=== PATIENT | female | born 1945 | race Caucasian/White ===

== ENCOUNTER 2017-01-19 01:29 | Inpatient (IN) ==
[2017-01-19] MEDS ORDERED: PROPOFOL 1,000 MG/100 ML BOTTLE IV ONE (01:39)
[2017-01-19] MEDS ORDERED: DOPamine 800 MG/250 ML PREMIX IV ONE (01:59)
[2017-01-19] MEDS: DOPamine 800 MG/250 ML PREMIX IV SCH (02:15)
--- NOTE | 2017-01-19 02:33 | Emergency Department Note ---
Zhang Dodd Mantricia, am scribing for, and in the presence of, Cass Dhaliwal DO 02:23. IIsra Debra, DO, personally performed the services described in this documentation, ascribed by Sun Holcomb in my presence, and it is both accurate and complete . Arrival - Arrival Chief Complaint: Shortness of Breath ED Nursing Triage Note: Pt arrives via [facility] from [place] for further eval of resp distress. Pt was seen initially for shortness of breath and was found to have elevated BNP. Pt was intubated at [place]. At time of triage pt is hypotensive. Mode of Arrival: Stretcher Limitations: No Limitations Source: EMS, RN Notes Reviewed - History of Present Illness HPI Narrative: Pt is a 71 y/o white female arriving to ED via [facility] as a transfer from [place] for further evaluation of respiratory distress that onset today. Pt is a resident of [facility] and presented to [place] [place] with a c/o SOB. Pt had an O2 sat of 74 and a blood sugar of greater than 40. Pt was diaphoretic while at [place] and was responsive to verbal stimuli. Dr. Rosado at ED was contacted for a transfer. While in route, pt received both Versed and Propathol. Pt was emergently intubated while at [place] and was treated for possible renal failure while there. [facility] reports that pt had a potassium of 6.9, which has now decreased and a BNP of 2000. At time of exam, pt is hypotensive, intubated, sedated, and unresponsive. No other complaints were reported to ED. Onset (ago): hour(s) Consistency: constant Severity: moderate Allergies/Adverse Reactions: Allergies Allergy/AdvReac Type Severity Reaction Status Date / Time codeine Allergy Mild Unknown/Unable Verified 12/25/15 18:11 to obtain sulfamethoxazole AdvReac Severe Unknown/Unable Verified 12/25/15 18:11 [From Bactrim] to obtain trimethoprim [From Bactrim] AdvReac Severe Unknown/Unable Verified 12/25/15 18: 11 to obtain Home Medications: Home Medications Medication Instructions Recorded Confirmed Type Alum/Mag/Simeth Max Str Liquid 30 ml PO Q8HR PRN 01/28/15 12/25/15 History [Mylanta Max Strength Liquid] Aspirin [Ecotrin] 81 mg PO DAILY 01/28/15 12/25/15 History Bisacodyl Supp [Dulcolax Supp] 10 mg RECTAL Q8H PRN 01/28/15 12/25/15 History Carbidopa/Levodopa 25-100 [Sinemet 1 tablet PO TID 01/28/15 12/25/15 History 25-100] Carvedilol [Coreg] 3.125 mg PO BID 01/28/15 12/25/15 History Ezetimibe/Simvastatin 10-80 1 tablet PO BEDTIME 01/28/15 12/25/15 History [Vytorin 10-80] Insulin Detemir [Levemir] 37 unit SUBCUT 1600 01/28/15 12/25/15 History Magnesium Hydroxide Susp [Milk of 60 ml PO DAILY PRN 01/28/15 12/25/15 History Magnesia] Memantine [Namenda] 10 mg PO BID 01/28/15 12/25/15 History Multivitamin [One Daily] 1 each PO DAILY 01/28/15 12/25/15 History Pantoprazole Tab [Protonix Tab] 40 mg PO DAILY 01/28/15 12/25/15 History Sennosides [Senna] 8.8 mg PO Q8H PRN 01/28/15 12/25/15 History Sertraline [Zoloft] 75 mg PO BEDTIME 01/28/15 12/25/15 History Clopidogrel [Plavix] 75 mg PO DAILY 11/13/15 12/25/15 History Multivitamin (Ocuvite) [Ocuvite] 1 tablet PO DAILY 11/13/15 12/25/15 History OLANZapine [Olanzapine] 5 mg PO DAILY 11/13/15 12/25/15 History Rivastigmine 9.5 mg/24Hr Patch 1 patch TRANSDERM DAILY 11/13/15 12/25/15 History [Exelon 9.5 mg/24 hr Patch] Acetaminophen 650 mg PO Q6H PRN 12/25/15 12/25/15 History Ferrous Sulfate 325 mg PO DAILY 12/25/15 12/25/15 History Linagliptin [Tradjenta] 5 mg PO DAILY 12/25/15 12/25/15 History Nystatin 1 applic TOP BID 12/25/15 12/25/15 History diphenhydrAMINE HCl 25 mg PO Q6H PRN 12/25/15 12/25/15 History [diphenhydrAMINE Tab] hydrOXYzine HCl [Hydroxyzine HCl] 50 mg PO Q6H PRN 12/25/15 12/25/15 History hydroCHLOROthiazide 12.5 mg PO DAILY 12/25/15 12/25/15 History [Hydrochlorothiazide] Simvastatin [Zocor] 80 mg PO BEDTIME tablet 12/26/15 Rx Levofloxacin Tab [Levaquin Tab] 500 mg PO Q24H #7 tablet 10/02/16 Rx amLODIPine [Norvasc] 5 mg PO DAILY #30 tablet 10/02/16 Rx Review of System - Review of System 12 point system: reviewed and no additional remarkable complaints except as stated - Review of System Constitutional: Present: other (elevated BNP; hypotensive). Absent: chills, diaphoresis, fever Respiratory: Present: other (SOB) Cardiovascular: Absent: chest pain Gastrointestinal: Absent: abdominal pain, nausea, vomiting, diarrhea Medical,Surgical,& Family Hx - Medical History Cardio: History of: Cardiac Dysrhythmia (afib), CAD (PCI to unknown site), Hypertension, [place] Neurology: History of: Cerebrovascular Accident (2005), Dementia, Parkinson's Disease (symptoms) No history of: Seizures Endocrine: History of: Diabetes Mellitus (IDDM), Dyslipidemia Rheumatology: History of;: Rheumatoid Arthritis Renal: History of: Renal Problems Gastrointestinal: History of: GERD Musculoskeletal: History of: Back/Neck Problems, Herniated Disk - Surgical History Cardiac Surgeries: Sugical HX of: Cardiac Catheterization (stents) HEENT Surgeries: Surgical HX of: Eye Surgery (right eye cataract sx) Abdominal Surgeries: Surgical HX of: Colonoscopy Patient denies: Abdominal Surgery Reproductive Surgeries: Surgical HX of;: Hysterectomy Orthopedic Surgeries: Surgical HX of;: Orthopedic Surgery (partial hip replacement post fall), Spinal Surgery (multiple back surgeries), Total Hip Replacement (left) - Family History Family History: Reports;: Family Cancer, Family Diabetes, Family Heart Disease, Family Hypertension Denies;: Family Anesthesia Reaction, Family Psychiatric Problems, Family Stroke - Social History Smoking Status: Never smoker Frequency of Alcohol Use: None Type of Drug Use: None Exam Vital Signs: Vital Signs Temperature 98.2 F 01/19/17 01:29 Pulse Rate 49 L 01/19/17 01:29 Respiratory Rate 19 01/19/17 01:40 Blood Pressure 102/60 01/19/17 01:29 O2 Sat by Pulse Oximetry 97 01/19/17 01:29 - General Exam limited due to: other (sedation;intubation) General appearance: obese - Head Head exam: Present: atraumatic, normocephalic - Eye Eye exam: Present: normal appearance, PERRL, EOMI - ENT ENT exam: Present: normal exam - Neck Neck exam: Present: normal inspection - Chest Chest inspection: Present: normal inspection - Respiratory Respiratory exam: Present: normal lung sounds bilaterally - Cardiovascular Cardiovascular exam: Present: regular rate, normal rhythm, normal heart sounds - Abdominal Exam Abdominal exam: Present: soft. Absent: distention, tenderness, guarding, rebound - Extremities Exam Extremities exam: Present: normal inspection - Back Exam Back exam: Present: normal inspection - Skin Skin exam: Present: warm, dry, intact, normal color Course Course Narrative: spoke with hospitalist who will admit pt to the ICU. repeat cardiac, chest xray and abgs ordered in ER Disposition Clinical Impression: Respiratory distress, Hyperkalemia Disposition: Still a Patient Condition: Guarded Time of Disposition: 02:33
[2017-01-19 02:36] LABS: CKMB % 4.2 %
[2017-01-19 02:37] LABS: Troponin I Only 0.605 NG/ML (0.00-0.045)
[2017-01-19] MEDS ORDERED: FUROSEMIDE 40 MG/4 ML VIAL IV STA (02:53)
[2017-01-19] MEDS ORDERED: FUROSEMIDE 100 MG/10 ML VIAL ONE (02:58)
[2017-01-19 03:25] LABS: ABG Base Excess -8.9 MMOL/L (-2.5-2.5); ABG HCO3 17.2 MMOL/L (20-26); ABG Oxygen Saturation 92.4 % (95-100); ABG PCO2 50.4 MM HG (35-48); ABG PO2 73.5 MM HG (80-95); ABG TCO2 17.8 MMOL/L (23-27); Allen Test Positive; Pt O2 Delivery Device Ventilator
[2017-01-19 03:27] LABS: ABG PH 7.198 (7.35-7.45)
--- NOTE | 2017-01-19 03:45 | Hospitalist History & Physical ---
Assessment and Plan (1) Acute respiratory failure Status: Acute Assessment and plan: Patient with acute respiratory failure now intubated and on ventilator. Bilateral infiltrate/pulmonary edema suspected. Patient was given diuretics. We will consult pulmonary. ABG is pending. Based on information infectious etiology not suspected but need to watch closely Current Visit: Yes (2) Hyperkalemia Status: Acute Assessment and plan: Hypokalemia noted probably due to chronic disease and uncontrolled diabetes mellitus with hypoglycemia. Repeat chemistries been ordered patient also received diuretics for suspected pulmonary edema will also likely assist with the hyperkalemia management Current Visit: Yes (3) Chronic kidney disease (CKD) Status: Chronic Assessment and plan: Patient has chronic kidney disease stage IV but renal function overall stable from what she had been June 2016 Current Visit: Yes (4) Type 2 diabetes mellitus Status: Chronic Assessment and plan: Will monitor blood sugar and provide as needed short-acting insulin hold on her long-acting hypoglycemic agent as she is n.p.o. at present repeat chemistry has been ordered Current Visit: No Qualifiers: Diabetes mellitus complication detail: with chronic kidney disease (5) Elevated troponin Status: Acute Assessment and plan: Noted elevated troponin not sure if it is due to hypotension with demand ischemia or primary cardiac event. Will do a repeat troponin and EKG cardiology consulted Current Visit: Yes (6) Hyperphosphatemia Status: Acute Assessment and plan: Hyperphosphatemia likely due to chronic renal disease patient is n.p.o. at present will need to consider repeating labs and the phosphate binders once she is on diet Current Visit: Yes (7) Dementia Status: Chronic Current Visit: No Qualifiers: Dementia type: Parkinson's disease History of Present Illness Chief complaint: Respiratory failure History of present illness: Ms. Wood is a 71 year old female who is intubated and unable to provide information no family member available history were obtained through the review of the record and talking to the ER physician. Patient is 71-year-old female with history of coronary artery disease dementia dyslipidemia hypertension diabetes mellitus. She is a resident of assisted and presented there with the respiratory distress was taken to the outside hospital there she was noted to have initially elevated blood pressure of 190/120 and then break was hypotensive with the recorded palpatory blood pressure of 40. She was intubated and started on dopamine infusion. I do not have any chest x-ray report or films available from outside hospital by the left bronchial showed WBC 10.4 hemoglobin 13.1 hematocrit 42.4 and platelets 194. Her blood glucose was more than 400 BUN 48 creatinine 2.2 chloride 105 bicarb 26 sodium 138 and potassium 6.2 phosphorus level was 6.2. Patient was transferred with a [facility] to [facility]. During that out she had lab work and had a potassium of 6.9 BNP 1999 she had received treatment for hyperkalemia but not sure about what treatment was received. Patient is now intubated and on ventilator. She was reported moving earlier in started on sedation. She is also on dopamine infusion. She was presented for admission and later had lab work revealed troponin 0.6. Chest x-ray revealed bilateral infiltrate. Home Medications Medication Instructions Recorded Confirmed Type Alum/Mag/Simeth Max Str Liquid 30 ml PO Q8HR PRN 01/28/15 12/25/15 History [Mylanta Max Strength Liquid] Aspirin [Ecotrin] 81 mg PO DAILY 01/28/15 12/25/15 History Bisacodyl Supp [Dulcolax Supp] 10 mg RECTAL Q8H PRN 01/28/15 12/25/15 History Carbidopa/Levodopa 25-100 [Sinemet 1 tablet PO TID 01/28/15 12/25/15 History 25-100] Carvedilol [Coreg] 3.125 mg PO BID 01/28/15 12/25/15 History Ezetimibe/Simvastatin 10-80 1 tablet PO BEDTIME 01/28/15 12/25/15 History [Vytorin 10-80] Insulin Detemir [Levemir] 37 unit SUBCUT 1600 01/28/15 12/25/15 History Magnesium Hydroxide Susp [Milk of 60 ml PO DAILY PRN 01/28/15 12/25/15 History Magnesia] Memantine [Namenda] 10 mg PO BID 01/28/15 12/25/15 History Multivitamin [One Daily] 1 each PO DAILY 01/28/15 12/25/15 History Pantoprazole Tab [Protonix Tab] 40 mg PO DAILY 01/28/15 12/25/15 History Sennosides [Senna] 8.8 mg PO Q8H PRN 01/28/15 12/25/15 History Sertraline [Zoloft] 75 mg PO BEDTIME 01/28/15 12/25/15 History Clopidogrel [Plavix] 75 mg PO DAILY 11/13/15 12/25/15 History Multivitamin (Ocuvite) [Ocuvite] 1 tablet PO DAILY 11/13/15 12/25/15 History OLANZapine [Olanzapine] 5 mg PO DAILY 11/13/15 12/25/15 History Rivastigmine 9.5 mg/24Hr Patch 1 patch TRANSDERM DAILY 11/13/15 12/25/15 History [Exelon 9.5 mg/24 hr Patch] Acetaminophen 650 mg PO Q6H PRN 12/25/15 12/25/15 History Ferrous Sulfate 325 mg PO DAILY 12/25/15 12/25/15 History Linagliptin [Tradjenta] 5 mg PO DAILY 12/25/15 12/25/15 History Nystatin 1 applic TOP BID 12/25/15 12/25/15 History diphenhydrAMINE HCl 25 mg PO Q6H PRN 12/25/15 12/25/15 History [diphenhydrAMINE Tab] hydrOXYzine HCl [Hydroxyzine HCl] 50 mg PO Q6H PRN 12/25/15 12/25/15 History hydroCHLOROthiazide 12.5 mg PO DAILY 12/25/15 12/25/15 History [Hydrochlorothiazide] Simvastatin [Zocor] 80 mg PO BEDTIME tablet 12/26/15 Rx Levofloxacin Tab [Levaquin Tab] 500 mg PO Q24H #7 tablet 10/02/16 Rx amLODIPine [Norvasc] 5 mg PO DAILY #30 tablet 10/02/16 Rx Allergies Allergy/AdvReac Type Severity Reaction Status Date / Time codeine Allergy Mild Unknown/Unable Verified 12/25/15 18:11 to obtain sulfamethoxazole AdvReac Severe Unknown/Unable Verified 12/25/15 18:11 [From Bactrim] to obtain trimethoprim [From Bactrim] AdvReac Severe Unknown/Unable Verified 12/25/15 18: 11 to obtain Medical,Surgical,& Family Hx - Medical History Cardio: History of: Cardiac Dysrhythmia (afib), CAD (PCI to unknown site), Hypertension, [place] Neurology: History of: Cerebrovascular Accident (2006), Dementia, Parkinson's Disease (symptoms) No history of: Seizures Endocrine: History of: Diabetes Mellitus (IDDM), Dyslipidemia Rheumatology: History of;: Rheumatoid Arthritis Renal: History of: Renal Problems Gastrointestinal: History of: GERD Musculoskeletal: History of: Back/Neck Problems, Herniated Disk - Surgical History Cardiac Surgeries: Sugical HX of: Cardiac Catheterization (stents) HEENT Surgeries: Surgical HX of: Eye Surgery (right eye cataract sx) Abdominal Surgeries: Surgical HX of: Colonoscopy Patient denies: Abdominal Surgery Reproductive Surgeries: Surgical HX of;: Hysterectomy Orthopedic Surgeries: Surgical HX of;: Orthopedic Surgery (partial hip replacement post fall), Spinal Surgery (multiple back surgeries), Total Hip Replacement (left) - Family History Family History: Reports;: Family Cancer, Family Diabetes, Family Heart Disease, Family Hypertension Denies;: Family Anesthesia Reaction, Family Psychiatric Problems, Family Stroke - Social History Smoking Status: Unknown if ever smoked Frequency of Alcohol Use: Unknown Type of Drug Use: Unknown ROS unobtainable: due to endotracheal tube Exam - Constitutional Vitals: Period Temp Pulse Resp BP Sys/Romero Pulse Ox Last 24 Hr 98.2 F-98.2 F 49-49 19-20 102-102/60-60 97 General appearance: other (Intubated on mechanical ventilator) - Head Head exam: Present: normal inspection, normocephalic, atraumatic - Eye Pupils: Present: KAVITHA - ENT ENT exam: Present: other (Orally intubated) - Respiratory Respiratory exam: Present: other (Bilateral coarse sound anteriorly and laterally no rhonchi) - Cardiovascular Cardiovascular exam: Present: regular rate and rhythm. Absent: tachycardia - GI/Abdominal GI/Abdominal exam: Present: normal bowel sounds, soft. Absent: distended - Extremities Exam Extremities exam: Absent: edema Results - Labs Lab Results: I have reviewed the past 24 hour labs
[2017-01-19] MEDS: PROPOFOL 1,000 MG/100 ML BOTTLE IV SCH ×5 (03:47→23:09)
[2017-01-19] MEDS ORDERED: GLUCAGON 1 MG VIAL IM PRN (03:54)
[2017-01-19] MEDS ORDERED: DEXTROSE 50% 25 GM/50 ML SYRINGE IV PRN (03:54)
[2017-01-19 05:22] LABS: Hematocrit 40.3 VOL% (35.7-47.0); Hemoglobin 12.4 GM/DL (12.0-16.0); Immature Granulocytes % 0.5 %; Immature Granulocytes Absolute 0.06 #; Lymphocytes # 0.8 10*3/uL (1.4-4.0); Lymphocytes % 6.8 % (21.3-54.2); Mean Corpuscular HGB Conc 30.8 GM/DL (32-36); Mean Corpuscular Hemoglobin 28 PG (27-34); Mean Corpuscular Volume 92.4 FL (87-102); Monocytes # 0.9 10*3/uL (0.11-0.8); Monocytes % 7.2 % (1.7-12.7); Neutrophils # 10.1 10*3/uL (1.4-7.4); Neutrophils % 85.5 % (38.7-73.9); Platelet Count 191 T/CUMM (130-400); Red Blood Count 4.36 MC/CUMM (3.8-5.5); Red Cell Distribution Width 14.4 % (9.3-17.3); White Blood Count 11.8 T/CUMM (4-12)
[2017-01-19 05:27] LABS: ABG Base Excess -8.7 MMOL/L (-2.5-2.5); ABG HCO3 17.9 MMOL/L (20-26); ABG Oxygen Saturation 98.7 % (95-100); ABG PCO2 40.9 MM HG (35-48); ABG PH 7.258 (7.35-7.45); ABG PO2 218.6 MM HG (80-95); ABG TCO2 19.1 MMOL/L (23-27); Allen Test Positive; Pt O2 Delivery Device Ventilator
[2017-01-19 05:50] LABS: Apearance,Urine CLEAR (Clear); Bilirubin,Urine Negative (Negative); Blood, Urine Small mg/dL (Negative); Glucose,Urine (UA) 150 mg/dL (Negative); Ketones,Urine Negative (Negative); Mucus,Urine Occasional /LPF (Occasional); Nitrite,Urine Negative (Negative); Protein,Urine 100 MG/DL; RBC,Urine <1 /HPF (0-4); Urine Color Straw (Yellow); Urine Specific Gravity 1.006 (1.001-1.035); Urine Urobilinogen < 2.0 EU/DL (0.2-1.0); WBC,Urine 1 /HPF (0-6)
[2017-01-19 05:53] LABS: Albumin 2.7 G/DL (3.4-5.0); Bilirubin,Total 0.6 MG/DL (0.2-1.0); Calcium 8.6 MG/DL (8.5-10.1); Total Protein 6.7 G/DL (6.4-8.3)
[2017-01-19] MEDS: INSULIN LISPRO 100 UNIT/ML SUBCUT SCH ×4 (06:13→23:42)
--- NOTE | 2017-01-19 06:14 | Cardiology Consult Note ---
Assessment and Plan (1) Coronary artery disease Status: Chronic Assessment and plan: Prior coronary artery disease with stenting of the RCA and circumflex artery but this is been over 10 years ago. Patient has no findings at this time of acute coronary syndrome. Current Visit: Yes (2) Hyperkalemia Status: Acute Assessment and plan: This is elevated and the etiology unclear. Current Visit: No (3) Acute respiratory failure Status: Acute Assessment and plan: Etiology of this is unclear but the patient required ventilator support. Current Visit: Yes (4) Chronic kidney disease (CKD) Status: Chronic Assessment and plan: This been a chronic issue. Hopefully she will not have an acute issue top of this. Current Visit: Yes (5) Elevated troponin Status: Acute Assessment and plan: Her troponin is trivially increased especially in light of her illness which can account for this. Current Visit: Yes (6) Bradycardia Status: Acute Assessment and plan: This may be secondary to metabolic issues. This just developed. Current Visit: Yes (7) Acidosis Status: Acute Assessment and plan: This is acute LA be related to underlying infection or other. Current Visit: Yes (8) Abnormal chest x-ray Status: Acute Assessment and plan: This may represent some fluid overload versus infection versus other. She is in respiratory failure. We have ordered chest x-ray. Current Visit: Yes History of Present Illness - Data of Consult Patient: new to practice Consult date: 01/19/17 Requesting Physician: Edouard Moore - Consult Narrative Reason for consult: Elevated BNP, bradycardia History of present illness: 71-year-old female who we are asked to see consultation. The patient is intubated and somewhat sedated but does respond some to verbal to verbal stimuli. There is no family available and only records we have is that of here and at the outside hospital where she was transferred from. In brief this patient apparently presented to the [facility] short of breath and was evaluated and was severely hypertensive but then became hypotensive. She required intubation and was transferred here. She had elevated potassium outside and BMP 1999. She was treated for hyperkalemia. Here her chest x-ray continues to show bilateral infiltrates question heart failure. The patient's CBC is noted and looks stable. She was acidotic on admission and remains somewhat acidotic but oxygenating better. She still has elevated potassium and her creatinine is 2.3 and BUN is 48 and remains acidotic with decreased bicarb. Her initial troponin was 0.605. An ECG from outside reveals sinus rhythm nonspecific ST-T abnormalities. Here this morning her rhythm appears to be junctional. Her heart rates in the 40s. We await her other lab work. Echocardiogram is been ordered. I do not see in the chart where she is ever seen a power superintendent but there is mention on some previous notes by hospitalist that she has had coronary disease and has had some episodes of atrial fibrillation. Patient previous seen Dr. James Kaufman and had prior stenting of the RCA and circumflex arteries. Her last heart catheterization was 2007 with widely patent stents in mild to moderate coronary disease present. In recent hospitalization she was not seen by power superintendent. We have ordered echocardiogram which will follow up on. Will monitor heart rhythm. Will leave the primary service to evaluate and treat her metabolic issues. CC: Edouard Moore MD - Home Medications and Allergies Home Medications: Home Medications Medication Instructions Recorded Confirmed Type Alum/Mag/Simeth Max Str Liquid 30 ml PO Q8HR PRN 01/28/15 12/25/15 History [Mylanta Max Strength Liquid] Aspirin [Ecotrin] 81 mg PO DAILY 01/28/15 12/25/15 History Bisacodyl Supp [Dulcolax Supp] 10 mg RECTAL Q8H PRN 01/28/15 12/25/15 History Carbidopa/Levodopa 25-100 [Sinemet 1 tablet PO TID 01/28/15 12/25/15 History 25-100] Carvedilol [Coreg] 3.125 mg PO BID 01/28/15 12/25/15 History Ezetimibe/Simvastatin 10-80 1 tablet PO BEDTIME 01/28/15 12/25/15 History [Vytorin 10-80] Insulin Detemir [Levemir] 37 unit SUBCUT 1600 01/28/15 12/25/15 History Magnesium Hydroxide Susp [Milk of 60 ml PO DAILY PRN 01/28/15 12/25/15 History Magnesia] Memantine [Namenda] 10 mg PO BID 01/28/15 12/25/15 History Multivitamin [One Daily] 1 each PO DAILY 01/28/15 12/25/15 History Pantoprazole Tab [Protonix Tab] 40 mg PO DAILY 01/28/15 12/25/15 History Sennosides [Senna] 8.8 mg PO Q8H PRN 01/28/15 12/25/15 History Sertraline [Zoloft] 75 mg PO BEDTIME 01/28/15 12/25/15 History Clopidogrel [Plavix] 75 mg PO DAILY 11/13/15 12/25/15 History Multivitamin (Ocuvite) [Ocuvite] 1 tablet PO DAILY 11/13/15 12/25/15 History OLANZapine [Olanzapine] 5 mg PO DAILY 11/13/15 12/25/15 History Rivastigmine 9.5 mg/24Hr Patch 1 patch TRANSDERM DAILY 11/13/15 12/25/15 History [Exelon 9.5 mg/24 hr Patch] Acetaminophen 650 mg PO Q6H PRN 12/25/15 12/25/15 History Ferrous Sulfate 325 mg PO DAILY 12/25/15 12/25/15 History Linagliptin [Tradjenta] 5 mg PO DAILY 12/25/15 12/25/15 History Nystatin 1 applic TOP BID 12/25/15 12/25/15 History diphenhydrAMINE HCl 25 mg PO Q6H PRN 12/25/15 12/25/15 History [diphenhydrAMINE Tab] hydrOXYzine HCl [Hydroxyzine HCl] 50 mg PO Q6H PRN 12/25/15 12/25/15 History hydroCHLOROthiazide 12.5 mg PO DAILY 12/25/15 12/25/15 History [Hydrochlorothiazide] Simvastatin [Zocor] 80 mg PO BEDTIME tablet 12/26/15 Rx Levofloxacin Tab [Levaquin Tab] 500 mg PO Q24H #7 tablet 10/02/16 Rx amLODIPine [Norvasc] 5 mg PO DAILY #30 tablet 10/02/16 Rx Allergies/Adverse Reactions: Allergies Allergy/AdvReac Type Severity Reaction Status Date / Time codeine Allergy Mild Unknown/Unable Verified 12/25/15 18:11 to obtain sulfamethoxazole AdvReac Severe Unknown/Unable Verified 12/25/15 18:11 [From Bactrim] to obtain trimethoprim [From Bactrim] AdvReac Severe Unknown/Unable Verified 12/25/15 18: 11 to obtain ROS unobtainable: due to endotracheal tube Medical,Surgical,& Family Hx - Medical History Cardio: History of: Cardiac Dysrhythmia (afib), CAD (PCI to unknown site), Hypertension, [place] Neurology: History of: Cerebrovascular Accident (2006), Dementia, Parkinson's Disease (symptoms) No history of: Seizures Endocrine: History of: Diabetes Mellitus (IDDM), Dyslipidemia Rheumatology: History of;: Rheumatoid Arthritis Renal: History of: Renal Problems Gastrointestinal: History of: GERD Musculoskeletal: History of: Back/Neck Problems, Herniated Disk - Surgical History Cardiac Surgeries: Sugical HX of: Cardiac Catheterization (stents) HEENT Surgeries: Surgical HX of: Eye Surgery (right eye cataract sx) Abdominal Surgeries: Surgical HX of: Colonoscopy Patient denies: Abdominal Surgery Reproductive Surgeries: Surgical HX of;: Hysterectomy Orthopedic Surgeries: Surgical HX of;: Orthopedic Surgery (partial hip replacement post fall), Spinal Surgery (multiple back surgeries), Total Hip Replacement (left) - Family History Family History: Reports;: Family Cancer, Family Diabetes, Family Heart Disease, Family Hypertension Denies;: Family Anesthesia Reaction, Family Psychiatric Problems, Family Stroke - Social History Smoking Status: Unknown if ever smoked Frequency of Alcohol Use: Unknown Type of Drug Use: Unknown Physical Examination Vital Signs Temp Pulse Resp BP Pulse Ox 98.2 F 49 L 20 102/60 97 01/19/17 01:29 01/19/17 01:29 01/19/17 01:29 01/19/17 01:29 01/19/17 01:29 Exam: General appearance: Overweight elderly female intubated on ventilator. She is somewhat sedate. She will open her eyes and respond slightly to verbal stimuli. HEENT: Atraumatic but orally intubated. Neck: Supple trachea is in midline. No gross bruit heard and no gross JVD. Lungs: Quiet anteriorly on ventilator. Breath sounds bilaterally. Cardiovascular: Distant heart sounds regular bradycardic without gross murmur. Chest wall: No gross deformities. Abdomen: Soft bowel sounds present. Nondistended. Extremities: No edema. No cyanosis or edema. Neurologic: Patient is sedate but does respond some to verbal stimuli. Psychiatric: Unable to evaluate. Dermatologic: No gross rashes. Result/EKG - Labs CBC & BMP: 01/19/17 04:37 01/19/17 04:37 Lab Results: I have reviewed the past 24 hour labs Labs: Laboratory Results - last 24 hr 01/19/17 01/19/17 01/19/17 01:55 03:18 04:37 WBC 11.8 RBC 4.36 Hgb 12.4 Hct 40.3 MCV 92.4 MCH 28 MCHC 30.8 L RDW 14.4 Plt Count 191 MPV 11.0 Neut % (Auto) 85.5 H Lymph % (Auto) 6.8 L [place] % (Auto) 7.2 Eos % (Auto) 0.0 Baso % (Auto) 0.0 Neut # (Auto) 10.1 H Lymph # (Auto) 0.8 L [place] # (Auto) 0.9 H Eos # (Auto) 0.0 Baso # (Auto) 0.0 Immature Gran % 0.5 Nucleated RBC % 0.0 Immature Gran # 0.06 Nucleated RBCs # 0.00 Immature Plt Fraction 0.0 ABG pH 7.198 L* ABG pCO2 50.4 H ABG pO2 73.5 L ABG HCO3 17.2 L ABG Total CO2 17.8 L ABG O2 Saturation 92.4 L ABG Base Excess -8.9 L FiO2 80.00 Sodium Potassium Chloride Carbon Dioxide Anion Gap BUN Creatinine GFR Calculation BUN/Creatinine Ratio Glucose POC Glucose Calculated Osmolality Calcium Total Bilirubin AST ALT Alkaline Phosphatase Total Creatine Kinase 175 CK-MB (CK-2) 7.3 H CK and CKMB Interp 4.2 Troponin I 0.605 H Total Protein Albumin Globulin Albumin/Globulin Ratio Urine Color Urine Appearance Urine pH Ur Specific [place] Urine Protein Urine Glucose (UA) Urine Ketones Urine Blood Urine Nitrate Urine Bilirubin Urine Urobilinogen Urine Leukocytes Urine RBC Urine WBC Urine Mucus Ur Culture Indicated? 01/19/17 01/19/17 01/19/17 04:37 05:10 05:10 WBC RBC Hgb Hct MCV MCH MCHC RDW Plt Count MPV Neut % (Auto) Lymph % (Auto) [place] % (Auto) Eos % (Auto) Baso % (Auto) Neut # (Auto) Lymph # (Auto) [place] # (Auto) Eos # (Auto) Baso # (Auto) Immature Gran % Nucleated RBC % Immature Gran # Nucleated RBCs # Immature Plt Fraction ABG pH 7.258 L ABG pCO2 40.9 ABG pO2 218.6 H ABG HCO3 17.9 L ABG Total CO2 19.1 L ABG O2 Saturation 98.7 ABG Base Excess -8.7 L FiO2 80.00 Sodium 143 Potassium 6.0 H* Chloride 114 H Carbon Dioxide 18 L Anion Gap 17.0 H BUN 48 H Creatinine 2.30 H GFR Calculation 24 BUN/Creatinine Ratio 20.00 Glucose 335 H POC Glucose Calculated Osmolality 310.0 H Calcium 8.6 Total Bilirubin 0.60 AST 28 ALT 16 Alkaline Phosphatase 282 H Total Creatine Kinase CK-MB (CK-2) CK and CKMB Interp Troponin I Total Protein 6.7 Albumin 2.7 L Globulin 4.0 H Albumin/Globulin Ratio 0.6 L Urine Color Straw Urine Appearance Clear Urine pH 5.0 Ur Specific [place] 1.006 Urine Protein 100 Urine Glucose (UA) 150 Urine Ketones Negative Urine Blood Small Urine Nitrate Negative Urine Bilirubin Negative Urine Urobilinogen < 2.0 H Urine Leukocytes Negative Urine RBC <1 Urine WBC 1 Urine Mucus Occasional Ur Culture Indicated? Not indicated 01/19/17 05:12 WBC RBC Hgb Hct MCV MCH MCHC RDW Plt Count MPV Neut % (Auto) Lymph % (Auto) [place] % (Auto) Eos % (Auto) Baso % (Auto) Neut # (Auto) Lymph # (Auto) [place] # (Auto) Eos # (Auto) Baso # (Auto) Immature Gran % Nucleated RBC % Immature Gran # Nucleated RBCs # Immature Plt Fraction ABG pH ABG pCO2 ABG pO2 ABG HCO3 ABG Total CO2 ABG O2 Saturation ABG Base Excess FiO2 Sodium Potassium Chloride Carbon Dioxide Anion Gap BUN Creatinine GFR Calculation BUN/Creatinine Ratio Glucose POC Glucose 344 H Calculated Osmolality Calcium Total Bilirubin AST ALT Alkaline Phosphatase Total Creatine Kinase CK-MB (CK-2) CK and CKMB Interp Troponin I Total Protein Albumin Globulin Albumin/Globulin Ratio Urine Color Urine Appearance Urine pH Ur Specific [place] Urine Protein Urine Glucose (UA) Urine Ketones Urine Blood Urine Nitrate Urine Bilirubin Urine Urobilinogen Urine Leukocytes Urine RBC Urine WBC Urine Mucus Ur Culture Indicated? - Impressions Impressions: ECGs outside reveals sinus rhythm. ECG here now with junctional rhythm but rhythm was previously sinus. Nonspecific ST abnormalities. No acute ischemic changes though.
[2017-01-19 06:45] LABS: CKMB % 4.4 %
[2017-01-19 06:47] LABS: Troponin I Only 0.684 NG/ML (0.00-0.045)
--- NOTE | 2017-01-19 07:44 | Pulmonology Consult Note ---
History of Present Illness Chief complaint: Ventilator. CHF. Parkinson's. Dementia. Old CVA History of present illness: Ms. Wood is a 71 year old white female care home patient whom I been asked see in pulmonary consultation for evaluation and treatment. This patient is a care home patient who was transferred here intubated for acute respiratory failure. Her chest x-ray shows acute congestive heart failure she has a history of heart disease, dementia, hyperlipidemia, high blood pressure and diabetes mellitus. Her old records referred to a previous CVA that involved her eyes. The patient is arousable but sedated therefore her review of systems is negative. Allergies. Codeine. Bactrim. Home medicines. See below Past history. Heart disease. High blood pressure. Hyperlipidemia. Diabetes mellitus. History of CVAs that at least involved her eyes. Dementia. Parkinson's disease. Atrial fibrillation. Possible past history of rheumatoid arthritis. History of gastroesophageal reflux disease and history of degenerative joint disease including herniated disc and chronic neck and back pain. Patient's had previous cardiac catheterization and placement of stents. She has had a hysterectomy. She has previously had a partial right hip replacement. And she has had a total hip replacement. She has had a number of back surgeries. Social history. Lives in a care home. Family history. Unknown type of cancer. Diabetes. Heart disease. High blood pressure. Anesthesia reaction. Strokes. Psychiatric problems. Chest x-ray. 01/19/2017. My interpretation. Mild cardiomegaly. Plump pulmonary arteries. No hilar adenopathy mediastinum is normal endotracheal tube is in good position bilateral fluffy mainly alveolar infiltrates and small bilateral pleural effusions consistent with congestive heart failure. This is a semierect portable film Lab. Creatinine is 2.3 with a BUN of 48. Sodium is 143. Potassium 6.0. Alkaline phosphatase is elevated 282 with normal transaminases and bilirubin. Troponin is 0.684. Total protein albumin and globulin 6.7, 2.7 and 4 respectively. White count 11,800 with 85.566.8 lymphs and 7.2 monocytes H&H is 12.4/40.3. Platelets are 191,000. Outside labs showed a BNP of approximately 2000 I am told. ABGs. FiO2 80%. Mechanical ventilation. PH 7.25, PCO2 40.9, PO2 218.6 and bicarb 17.9. Physical exam. Vital signs see below. Afebrile. Face. Symmetrical. No edema of the lips or tongue. Neck. Symmetrical. No mass. No meningismus. Thyroid was not palpated Lymphatics. No submandibular cervical supraclavicular or epitrochlear adenopathy Chest. Symmetrical. Fairly clear. Bibasilar rales Heart. Slightly lateral PMI I cannot hear murmur Abdomen. Nondistended. Scattered hypoactive bowel sounds Lower extremities. Mild overlying skin changes of chronic venous stasis. Trace of pedal pretibial edema. Cannot evaluate for pain. Degenerative joint disease present Neurologic. Impossible and rectal deferred Breast deferred The remainder the exam is negative. Impression. 1. Acute respiratory failure probably secondary to congestive heart failure but watch for other causes. Requiring intubation mechanical ventilation. Note the patient has a #6 tube 2. Past history of heart disease requiring stents 3. Chronic renal failure. Poor response to IV push Lasix. Mild hyperkalemia. 4 abnormal alkaline phosphate. Etiology undetermined 5. Parkinson's disease 6. Possible history of rheumatoid arthritis 7. Diabetes mellitus 8. High blood pressure 9. Hyperlipidemia 10. Gastroesophageal reflux disease 11. History of bilateral hip surgery. 12. See past history Plan. 1. Adjustments made to mechanical ventilation. Begin weaning protocol and physical therapy protocol 2. Output is poor will ask renal to see the patient 3. Doppler venograms of the lower extremities 4. Daily chest x-ray ABGs and lab been ordered 5. See orders. 6. Deep venous thrombophlebitis prevention protocol 7. Proton pump inhibitor protocol per Home Medications Medication Instructions Recorded Confirmed Type Alum/Mag/Simeth Max Str Liquid 30 ml PO Q8HR PRN 01/28/15 12/25/15 History [Mylanta Max Strength Liquid] Aspirin [Ecotrin] 81 mg PO DAILY 01/28/15 12/25/15 History Bisacodyl Supp [Dulcolax Supp] 10 mg RECTAL Q8H PRN 01/28/15 12/25/15 History Carbidopa/Levodopa 25-100 [Sinemet 1 tablet PO TID 01/28/15 12/25/15 History 25-100] Carvedilol [Coreg] 3.125 mg PO BID 01/28/15 12/25/15 History Ezetimibe/Simvastatin 10-80 1 tablet PO BEDTIME 01/28/15 12/25/15 History [Vytorin 10-80] Insulin Detemir [Levemir] 37 unit SUBCUT 1600 01/28/15 12/25/15 History Magnesium Hydroxide Susp [Milk of 60 ml PO DAILY PRN 01/28/15 12/25/15 History Magnesia] Memantine [Namenda] 10 mg PO BID 01/28/15 12/25/15 History Multivitamin [One Daily] 1 each PO DAILY 01/28/15 12/25/15 History Pantoprazole Tab [Protonix Tab] 40 mg PO DAILY 01/28/15 12/25/15 History Sennosides [Senna] 8.8 mg PO Q8H PRN 01/28/15 12/25/15 History Sertraline [Zoloft] 75 mg PO BEDTIME 01/28/15 12/25/15 History Clopidogrel [Plavix] 75 mg PO DAILY 11/13/15 12/25/15 History Multivitamin (Ocuvite) [Ocuvite] 1 tablet PO DAILY 11/13/15 12/25/15 History OLANZapine [Olanzapine] 5 mg PO DAILY 11/13/15 12/25/15 History Rivastigmine 9.5 mg/24Hr Patch 1 patch TRANSDERM DAILY 11/13/15 12/25/15 History [Exelon 9.5 mg/24 hr Patch] Acetaminophen 650 mg PO Q6H PRN 12/25/15 12/25/15 History Ferrous Sulfate 325 mg PO DAILY 12/25/15 12/25/15 History Linagliptin [Tradjenta] 5 mg PO DAILY 12/25/15 12/25/15 History Nystatin 1 applic TOP BID 12/25/15 12/25/15 History diphenhydrAMINE HCl 25 mg PO Q6H PRN 12/25/15 12/25/15 History [diphenhydrAMINE Tab] hydrOXYzine HCl [Hydroxyzine HCl] 50 mg PO Q6H PRN 12/25/15 12/25/15 History hydroCHLOROthiazide 12.5 mg PO DAILY 12/25/15 12/25/15 History [Hydrochlorothiazide] Simvastatin [Zocor] 80 mg PO BEDTIME tablet 12/26/15 Rx Levofloxacin Tab [Levaquin Tab] 500 mg PO Q24H #7 tablet 10/02/16 Rx amLODIPine [Norvasc] 5 mg PO DAILY #30 tablet 10/02/16 Rx Allergies Allergy/AdvReac Type Severity Reaction Status Date / Time codeine Allergy Mild Unknown/Unable Verified 12/25/15 18:11 to obtain sulfamethoxazole AdvReac Severe Unknown/Unable Verified 12/25/15 18:11 [From Bactrim] to obtain trimethoprim [From Bactrim] AdvReac Severe Unknown/Unable Verified 12/25/15 18: 11 to obtain Exam (Pulmonay) H&P - Constitutional Vitals: Period Temp Pulse Resp BP Sys/Romero Pulse Ox Last 24 Hr 97.4 F-98.2 F 44-74 18-20 102-175/60-75 97-100 Medical,Surgical,& Family Hx - Medical History Cardio: History of: Cardiac Dysrhythmia (afib), CAD (PCI to unknown site), Hypertension, [place] Neurology: History of: Cerebrovascular Accident (2005), Dementia, Parkinson's Disease (symptoms) No history of: Seizures Endocrine: History of: Diabetes Mellitus (IDDM), Dyslipidemia Rheumatology: History of;: Rheumatoid Arthritis Renal: History of: Renal Problems Gastrointestinal: History of: GERD Musculoskeletal: History of: Back/Neck Problems, Herniated Disk - Surgical History Cardiac Surgeries: Sugical HX of: Cardiac Catheterization (stents) HEENT Surgeries: Surgical HX of: Eye Surgery (right eye cataract sx) Abdominal Surgeries: Surgical HX of: Colonoscopy Patient denies: Abdominal Surgery Reproductive Surgeries: Surgical HX of;: Hysterectomy Orthopedic Surgeries: Surgical HX of;: Orthopedic Surgery (partial hip replacement post fall), Spinal Surgery (multiple back surgeries), Total Hip Replacement (left) - Family History Family History: Reports;: Family Cancer, Family Diabetes, Family Heart Disease, Family Hypertension Denies;: Family Anesthesia Reaction, Family Psychiatric Problems, Family Stroke - Social History Smoking Status: Unknown if ever smoked Frequency of Alcohol Use: Unknown Type of Drug Use: Unknown Results - Labs CBC & BMP: 01/19/17 04:37 01/19/17 04:37
[2017-01-19] MEDS ORDERED: CALCIUM GLUCONATE 2,000 MG in SODIUM CHLORIDE 0.9% 100 ML IV PRN (08:29)
--- NOTE | 2017-01-19 08:31 | Nephrology Consult Note ---
History of Present Illness Chief complaint: Acute renal failure History of present illness: History is from the chart as patient is intubated. Ms. Wood is a 71 year old female patient with history of hypertension, diabetes, dementia, Parkinson's disease and chronic kidney disease was transferred from outside facility due to respiratory distress. Patient has evidence of volume overload by x-ray. She is now entirely intubated. Nephrology is consulted for acute on chronic renal failure. Moreover patient has evidence of elevated potassium. She has received 1 dose of Lasix. Hemodynamics have been stable. She is voiding at this time. We will continue with scheduled Lasix. Will also repeat potassium this afternoon. Home Medications Medication Instructions Recorded Confirmed Type Alum/Mag/Simeth Max Str Liquid 30 ml PO Q8HR PRN 01/28/15 12/25/15 History [Mylanta Max Strength Liquid] Aspirin [Ecotrin] 81 mg PO DAILY 01/28/15 12/25/15 History Bisacodyl Supp [Dulcolax Supp] 10 mg RECTAL Q8H PRN 01/28/15 12/25/15 History Carbidopa/Levodopa 25-100 [Sinemet 1 tablet PO TID 01/28/15 12/25/15 History 25-100] Carvedilol [Coreg] 3.125 mg PO BID 01/28/15 12/25/15 History Ezetimibe/Simvastatin 10-80 1 tablet PO BEDTIME 01/28/15 12/25/15 History [Vytorin 10-80] Insulin Detemir [Levemir] 37 unit SUBCUT 1600 01/28/15 12/25/15 History Magnesium Hydroxide Susp [Milk of 60 ml PO DAILY PRN 01/28/15 12/25/15 History Magnesia] Memantine [Namenda] 10 mg PO BID 01/28/15 12/25/15 History Multivitamin [One Daily] 1 each PO DAILY 01/28/15 12/25/15 History Pantoprazole Tab [Protonix Tab] 40 mg PO DAILY 01/28/15 12/25/15 History Sennosides [Senna] 8.8 mg PO Q8H PRN 01/28/15 12/25/15 History Sertraline [Zoloft] 75 mg PO BEDTIME 01/28/15 12/25/15 History Clopidogrel [Plavix] 75 mg PO DAILY 11/13/15 12/25/15 History Multivitamin (Ocuvite) [Ocuvite] 1 tablet PO DAILY 11/13/15 12/25/15 History OLANZapine [Olanzapine] 5 mg PO DAILY 11/13/15 12/25/15 History Rivastigmine 9.5 mg/24Hr Patch 1 patch TRANSDERM DAILY 11/13/15 12/25/15 History [Exelon 9.5 mg/24 hr Patch] Acetaminophen 650 mg PO Q6H PRN 12/25/15 12/25/15 History Ferrous Sulfate 325 mg PO DAILY 12/25/15 12/25/15 History Linagliptin [Tradjenta] 5 mg PO DAILY 12/25/15 12/25/15 History Nystatin 1 applic TOP BID 12/25/15 12/25/15 History diphenhydrAMINE HCl 25 mg PO Q6H PRN 12/25/15 12/25/15 History [diphenhydrAMINE Tab] hydrOXYzine HCl [Hydroxyzine HCl] 50 mg PO Q6H PRN 12/25/15 12/25/15 History hydroCHLOROthiazide 12.5 mg PO DAILY 12/25/15 12/25/15 History [Hydrochlorothiazide] Simvastatin [Zocor] 80 mg PO BEDTIME tablet 12/26/15 Rx Levofloxacin Tab [Levaquin Tab] 500 mg PO Q24H #7 tablet 10/02/16 Rx amLODIPine [Norvasc] 5 mg PO DAILY #30 tablet 10/02/16 Rx Allergies Allergy/AdvReac Type Severity Reaction Status Date / Time codeine Allergy Mild Unknown/Unable Verified 12/25/15 18:11 to obtain sulfamethoxazole AdvReac Severe Unknown/Unable Verified 12/25/15 18:11 [From Bactrim] to obtain trimethoprim [From Bactrim] AdvReac Severe Unknown/Unable Verified 12/25/15 18: 11 to obtain Medical,Surgical,& Family Hx - Medical History Cardio: History of: Cardiac Dysrhythmia (afib), CAD (PCI to unknown site), Hypertension, [place] Neurology: History of: Cerebrovascular Accident (2006), Dementia, Parkinson's Disease (symptoms) No history of: Seizures Endocrine: History of: Diabetes Mellitus (IDDM), Dyslipidemia Rheumatology: History of;: Rheumatoid Arthritis Renal: History of: Renal Problems Gastrointestinal: History of: GERD Musculoskeletal: History of: Back/Neck Problems, Herniated Disk - Surgical History Cardiac Surgeries: Sugical HX of: Cardiac Catheterization (stents) HEENT Surgeries: Surgical HX of: Eye Surgery (right eye cataract sx) Abdominal Surgeries: Surgical HX of: Colonoscopy Patient denies: Abdominal Surgery Reproductive Surgeries: Surgical HX of;: Hysterectomy Orthopedic Surgeries: Surgical HX of;: Orthopedic Surgery (partial hip replacement post fall), Spinal Surgery (multiple back surgeries), Total Hip Replacement (left) - Family History Family History: Reports;: Family Cancer, Family Diabetes, Family Heart Disease, Family Hypertension Denies;: Family Anesthesia Reaction, Family Psychiatric Problems, Family Stroke - Social History Smoking Status: Unknown if ever smoked Frequency of Alcohol Use: Unknown Type of Drug Use: Unknown Review of Systems ROS unobtainable: due to endotracheal tube Exam - Vital Signs Vital signs: Period Temp Pulse Resp BP Sys/Romero Pulse Ox Last 24 Hr 97.4 F-98.2 F 44-74 18-20 102-175/60-90 97-100 - General Appearance General appearance: intubated EENT: ATNC Neck: supple Respiratory: clear Cardiology: no edema, regular rate, regular rhythm Gastrointestinal: normoactive bowel sounds, no tenderness Integumentary: no rash Musculoskeletal: no deformities Results - Labs CBC & BMP: 01/19/17 04:37 01/19/17 04:37 Assessment and Plan (1) Acute renal failure Status: Acute Assessment and plan: Acute on chronic kidney disease. Repeat BMP at 1:00 this afternoon. Current Visit: No (2) Elevated serum creatinine Problem details: Most likely due to bactrim competitive inhibition of creatinine secretion. Improved. Status: Acute Current Visit: No (3) Hypertension Status: Acute Current Visit: No Qualifiers: Hypertension type: essential hypertension Qualified Code(s): I10 - Essential (primary) hypertension (4) Respiratory distress Status: Acute Assessment and plan: On ventilator. Current Visit: Yes (5) Hyperkalemia Status: Acute Assessment and plan: Repeat BMP at 1 today. Scheduled Lasix 80 mg IV every 6 hours. 1 amp calcium gluconate. Current Visit: Yes
--- NOTE | 2017-01-19 08:31 | XRay Report ---
XR chest 1V portable Indication: Respiratory distress, intubation Comparison: 02 October 2016 Findings: The heart and mediastinum are stable in size and configuration. Endotracheal tube is been placed with tip at the clavicle level. NG tube is present, tip is off the edge of the film in the left upper abdomen. The pulmonary vascularity is increased with bilateral increased interstitial lung density. No other lung infiltrates, effusions, pneumothorax or other abnormality is demonstrated. Impression: Findings suggest cardiac decompensation. Support structures appear in good position. PROCEDURE INTERPRETED AT [facility] DEPARTMENT OF RADIOLOGY Final Report Signed by: Dr. Petros Nagy
[2017-01-19] MEDS: FUROSEMIDE 40 MG/4 ML VIAL IV SCH ×3 (09:33→19:44)
[2017-01-19] MEDS: RIVASTIGMINE 9.5 MG/24 HR PATCH TRANSDERM SCH (09:35)
[2017-01-19] MEDS: ENOXAPARIN 30 MG/0.3 ML SYRINGE SUBCUT SCH (09:36)
[2017-01-19] MEDS: CARBIDOPA/LEVODOPA 25-100 MG TABLET PO SCH ×3 (09:36→22:08)
[2017-01-19] MEDS: CLOPIDOGREL 75 MG TABLET PO SCH (09:36)
[2017-01-19] MEDS: ASPIRIN EC 81 MG TABLET PO SCH (09:36)
--- NOTE | 2017-01-19 10:11 | Hospitalist Progress Note ---
Hospitalist: Subjective Interval history: 71 yo WF from [place] presented to the [facility] with shortness of breath and was evaluated and was severely hypertensive but then became hypotensive. She required intubation and was transferred to [facility] ICU. She is comfortable on the ventilator. Exam - Constitutional Vitals: Period Temp Pulse Resp BP Sys/Romero Pulse Ox Last 24 Hr 97.4 F-98.2 F 44-74 18-20 102-175/60-90 97-100 Exam: General: No Acute Distress HEENT: Normocephalic, atraumatic Neck: Supple, No JVD Chest: Clear to auscultation B/L CV: S1 + S2 audible without murmur, gallop or rub Abd: soft, NT, Non-distended, BS + Ext: No edema Skin: No purpura, bruising or rash Rheumatologic: No Joint deformities Results - Labs CBC & BMP: 01/19/17 04:37 01/19/17 04:37 - Impressions Assessment and Plan: Acute on chronic congestive heart failure Status: Acute Assessment and plan: Chest x-ray showed pulmonary edema, on IV Lasix, follow up on 2D echo, monitor serial chest x-ray Current Visit: Yes Acute hypoxemic respiratory failure Status: Acute Assessment and plan: She is on mechanical ventilator Current Visit: Yes JOSE on CKD Status: Acute Assessment and plan: Monitor intake and output and creatinine. Hyperphosphatemia due to chronic kidney disease Current Visit: Yes Hyperkalemia Status: Acute Assessment and plan: Monitor, received 1 amp of calcium gluconate prn, also on lasix Current Visit: No Metabolic acidosis Status: Acute Assessment and plan: likely due to renal failure, monitor Current Visit: Yes Diabetes mellitus II Status: Chronic Assessment and plan: Uncontrolled, currently she is n.p.o., monitor Accu-Chek Current Visit: No Coronary artery disease Status: Chronic Assessment and plan: She has previous stents to RCA and circumflex artery 10 years ago. No evidence of acute coronary syndrome, continue aspirin and Plavix. Mildly elevated troponin due to some supply demand mismatch Current Visit: Yes GERD Status: Chronic Assessment and plan: Stable Current Visit: Yes Parkinson's disease Status: Chronic Assessment and plan: Stable on Sinemet Current Visit: Yes Alzheimer's dementia Status: Chronic Assessment and plan: Stable on Exelon 9.5 mg/d patch Current Visit: Yes DVT prophylaxis with Lovenox
--- NOTE | 2017-01-19 10:42 | Order Completion Report ---
See report scanned to EMR
--- NOTE | 2017-01-19 11:47 | Ultrasound Report ---
Venous Doppler ultrasound bilateral lower extremities Indication: Edema Comparison: None available Findings: No evidence of echogenic, noncompressible thrombus seen in the visualized veins of the extremities. Color Doppler venous waveform pattern is within normal limits. Impression: No evidence of deep venous thrombosis. Ultrasound images stored and captured. PROCEDURE INTERPRETED AT [facility] DEPARTMENT OF RADIOLOGY Final Report Signed by: Dr. Petros Nagy
[2017-01-19 14:22] LABS: Calcium 8.4 MG/DL (8.5-10.1); Osmolality,Calculated 310.1 MOS/KG (273-304); Potassium 5.2 MMOL/L (3.5-5.1)
--- NOTE | 2017-01-19 14:36 | Event Note ---
Patient's 2D echocardiogram shows systolic congestive heart failure with ejection fraction 40-45%, continue IV Lasix.
[2017-01-20] MEDS: PROPOFOL 1,000 MG/100 ML BOTTLE IV SCH ×5 (02:43→22:08)
[2017-01-20 03:12] LABS: ABG Base Excess -4.6 MMOL/L (-2.5-2.5); ABG HCO3 20.6 MMOL/L (20-26); ABG Oxygen Saturation 98.9 % (95-100); ABG PCO2 31.5 MM HG (35-48); ABG PH 7.396 (7.35-7.45); ABG TCO2 17.4 MMOL/L (23-27); Allen Test Positive; Pt O2 Delivery Device Ventilator
[2017-01-20] MEDS: DOPamine 800 MG/250 ML PREMIX IV SCH (03:30)
[2017-01-20] MEDS: FUROSEMIDE 40 MG/4 ML VIAL IV SCH ×4 (03:39→21:14)
[2017-01-20] MEDS: INSULIN LISPRO 100 UNIT/ML SUBCUT SCH ×3 (06:43→18:31)
--- NOTE | 2017-01-20 08:47 | XRay Report ---
XR chest 1V portable Indication: Ventilator patient Comparison: 19 January 2017 Findings: The heart and mediastinum are stable in size and configuration. Tubes are unchanged in position. The pulmonary vascularity is decreased with decreasing interstitial lung density. No other lung infiltrates, effusions, pneumothorax or other abnormality is demonstrated. Impression: Findings suggest improving cardiac decompensation. PROCEDURE INTERPRETED AT [facility] DEPARTMENT OF RADIOLOGY Final Report Signed by: Dr. Petros Nagy
[2017-01-20] MEDS ORDERED: LABETALOL 20 MG/4 ML SYRINGE IV PRN (09:15)
--- NOTE | 2017-01-20 09:48 | Cardiology Progress Note ---
Assessment and Plan (1) Coronary artery disease Status: Chronic Assessment and plan: Prior coronary artery disease with stenting of the RCA and circumflex artery but this is been over 10 years ago. No evidence of acute coronary syndrome. Guarding is noted with slight decrease ejection fraction 40-45%. Current Visit: Yes (2) Hyperkalemia Status: Acute Assessment and plan: This is improving. Current Visit: No (3) Acute respiratory failure Status: Acute Assessment and plan: Etiology of this is unclear but the patient required ventilator support. Ejection fraction is adequate at 40-45%. Her BNP is not elevated that significantly. Current Visit: Yes (4) Chronic kidney disease (CKD) Status: Chronic Assessment and plan: This been a chronic issue. Be a creatinine are increasing in nephrology is following. Current Visit: Yes (5) Elevated troponin Status: Acute Assessment and plan: Her troponin is trivially and not diagnostic for acute ischemia. Current Visit: Yes (6) Bradycardia Status: Acute Assessment and plan: This may be secondary to metabolic issues. This is resolved now. We will need to not use any medication that was caused bradycardia at this time. Current Visit: Yes (7) Acidosis Status: Acute Assessment and plan: This is improved markedly. Current Visit: Yes (8) Abnormal chest x-ray Status: Acute Assessment and plan: This may represent some fluid overload versus infection versus other. This is improving. Current Visit: Yes (9) Hypertension Status: Chronic Assessment and plan: I will asked him p.o. medications to her regimen. Try to avoid IV but if necessary this can be started. Current Visit: No Qualifiers: Hypertension type: essential hypertension Qualified Code(s): I10 - Essential (primary) hypertension Cardiology - PN: Subj Interval history: She remains intubated on propofol. Apparently she has significant elevation of her blood pressures when she begins coming out of sedation. She has hypertension. She certainly has to have this managed but we need to avoid any medications that will cause bradycardia. Her chest x-ray looks better. Her acidosis is markedly improved. Her renal function though is continuing to have increase in BUN and creatinine, potassium is better. Her BNP is 236. Her troponins certainly were not diagnostic. Her heart rates are better and is in sinus rhythm. Her goal is to be can manage her blood pressures at this time. Patient echocardiogram with left ventricle normal size and ejection fraction 40- 45% mild concentric left ventricular hypertrophy. Mild left atrial enlargement. There was no real significant valvular abnormalities. It was a limited study. Exam (Progress Note) - Constitutional Vitals: Period Temp Pulse Resp BP Sys/Romero Pulse Ox Last 24 Hr 97.1 F-99.3 F 46-89 15-23 117-232/49-87 99-100 Exam: General: Patient intubated and sedated on propofol. HEENT: Orally intubated, NG tube is in place. Neck: Trachea is in midline. No unusual neck swelling or other abnormalities. Lungs: Clear anteriorly with a few crackles but good air movement without wheezing. Cardiovascular: Regular rate and rhythm without gross murmur gallop or rub. Pulses are intact. Abdomen: Non-protuberant. Soft bowel sounds are present. Extremities: Warm without edema. Neurologic: Patient sedated on propofol. Psychiatric: Unable to evaluate. Dermatologic: Good turgor. Result/EKG - Labs CBC & BMP: 01/19/17 04:37 01/19/17 13:45 Lab Results: I have reviewed the past 24 hour labs Labs: Laboratory Results - last 24 hr 01/19/17 01/19/17 01/19/17 11:04 13:45 18:07 ABG pH ABG pCO2 ABG pO2 ABG HCO3 ABG Total CO2 ABG O2 Saturation ABG Base Excess FiO2 Sodium 142 Potassium 5.2 H Chloride 113 H Carbon Dioxide 21 Anion Gap 13.2 BUN 59 H D Creatinine 2.60 H GFR Calculation 20 BUN/Creatinine Ratio 22.00 H Glucose 300 H POC Glucose 305 H 251 H Hemoglobin A1c Calculated Osmolality 310.1 H Calcium 8.4 L B-Natriuretic Peptide 01/19/17 01/20/17 01/20/17 23:21 03:00 05:14 ABG pH 7.396 ABG pCO2 31.5 L ABG pO2 166.0 H ABG HCO3 20.6 ABG Total CO2 17.4 L ABG O2 Saturation 98.9 ABG Base Excess -4.6 L FiO2 59.00 Sodium Potassium Chloride Carbon Dioxide Anion Gap BUN Creatinine GFR Calculation BUN/Creatinine Ratio Glucose POC Glucose 320 H Hemoglobin A1c 9.0 H Calculated Osmolality Calcium B-Natriuretic Peptide 01/20/17 01/20/17 05:14 05:30 ABG pH ABG pCO2 ABG pO2 ABG HCO3 ABG Total CO2 ABG O2 Saturation ABG Base Excess FiO2 Sodium Potassium Chloride Carbon Dioxide Anion Gap BUN Creatinine GFR Calculation BUN/Creatinine Ratio Glucose POC Glucose 368 H Hemoglobin A1c Calculated Osmolality Calcium B-Natriuretic Peptide 236 H - Impressions Impressions: Telemetry with sinus rhythm and normal heart rate.
[2017-01-20 09:49] LABS: Basophils % 0.1 % (0.0-0.8); Eosinophils % 0.4 % (0.00-10.9); Hematocrit 37.1 VOL% (35.7-47.0); Hemoglobin 11.7 GM/DL (12.0-16.0); Immature Granulocytes % 0.9 %; Immature Granulocytes Absolute 0.06 #; Lymphocytes # 1.4 10*3/uL (1.4-4.0); Mean Corpuscular HGB Conc 31.5 GM/DL (32-36); Mean Corpuscular Hemoglobin 29 PG (27-34); Mean Corpuscular Volume 91.2 FL (87-102); Mean Platelet Volume 11.2 FL (9.6-12.0); Monocytes # 0.6 10*3/uL (0.11-0.8); Monocytes % 8.3 % (1.7-12.7); Neutrophils # 4.8 10*3/uL (1.4-7.4); Neutrophils % 69.3 % (38.7-73.9); Platelet Count 147 T/CUMM (130-400); Red Blood Count 4.07 MC/CUMM (3.8-5.5); Red Cell Distribution Width 14.5 % (9.3-17.3); White Blood Count 6.9 T/CUMM (4-12)
[2017-01-20] MEDS: CLOPIDOGREL 75 MG TABLET PO SCH (09:57)
[2017-01-20] MEDS: MULTIVITAMIN LIQUID (CENTRUM) 60 ML BOTTLE NG SCH (09:57)
[2017-01-20] MEDS: ASPIRIN EC 81 MG TABLET PO SCH (09:57)
[2017-01-20] MEDS: CARBIDOPA/LEVODOPA 25-100 MG TABLET PO SCH ×3 (09:57→22:07)
[2017-01-20] MEDS: RIVASTIGMINE 9.5 MG/24 HR PATCH TRANSDERM SCH (09:57)
[2017-01-20] MEDS: INSULIN GLARGINE 100 UNIT/ML SUBCUT SCH ×2 (09:58→22:11)
[2017-01-20] MEDS: ENOXAPARIN 30 MG/0.3 ML SYRINGE SUBCUT SCH (09:58)
[2017-01-20 10:01] LABS: Calcium 8.4 MG/DL (8.5-10.1); Osmolality,Calculated 309.3 MOS/KG (273-304); Potassium 4.4 MMOL/L (3.5-5.1)
--- NOTE | 2017-01-20 10:18 | Nephrology Progress Note ---
Nephrology - PN: Subj Interval history: Patient is resting. Remains ventilated but no acute changes. Blood pressures been adjusted. Serum potassium is stable at 4.4. Serum creatinine is noted to be 3.0. Urine output has picked up. No fevers or chills. Exam (PN)-Nephrology - Vital Signs Vital signs: Period Temp Pulse Resp BP Sys/Romero Pulse Ox Last 24 Hr 97.1 F-99.3 F 46-89 15-23 117-232/49-87 99-100 - General Appearance General appearance: well-developed, intubated EENT: ATNC Neck: supple Respiratory: clear Cardiology: no edema, regular rate, regular rhythm Gastrointestinal: normoactive bowel sounds, no tenderness Musculoskeletal: no clubbing - Lab 01/20/17 09:29 01/20/17 09:29 Most recent lab results ABG pH 7.396 (7.35-7.45) 01/20/17 03:00 ABG pCO2 31.5 MM HG (35-48) L 01/20/17 03:00 ABG pO2 166.0 MM HG (80-95) H 01/20/17 03:00 ABG HCO3 20.6 MMOL/L (20-26) 01/20/17 03:00 ABG O2 Saturation 98.9 % (95-100) 01/20/17 03:00 Calcium 8.4 MG/DL (8.5-10.1) L 01/20/17 09:29 Assessment and Plan (1) Acute renal failure Status: Acute Assessment and plan: Acute on chronic kidney disease. Continue to follow renal function with BMP. Current Visit: No (2) Elevated serum creatinine Problem details: Most likely due to bactrim competitive inhibition of creatinine secretion. Improved. Status: Acute Current Visit: No (3) Hypertension Status: Chronic Current Visit: No Qualifiers: Hypertension type: essential hypertension Qualified Code(s): I10 - Essential (primary) hypertension (4) Respiratory distress Status: Acute Assessment and plan: On ventilator. Current Visit: Yes (5) Hyperkalemia Status: Resolved Assessment and plan: Repeat BMP at 1 today. Scheduled Lasix 80 mg IV every 6 hours. 1 amp calcium gluconate. Current Visit: Yes
[2017-01-20] MEDS ORDERED: amLODIPine 10 MG TABLET PO ONE (10:39)
--- NOTE | 2017-01-20 10:46 | Pulmonology Progress Note ---
Pulmonary - PN: Subj Interval history: This is a 71-year-old female whom I saw in pulmonary consultation on 01/19/2017. My impressions were. 1. Acute respiratory failure probably secondary to congestive heart failure but watch for other causes. Requiring intubation mechanical ventilation. Note the patient has a #6 tube 2. Past history of heart disease requiring stents 3. Chronic renal failure. Poor response to IV push Lasix. Mild hyperkalemia. 4 abnormal alkaline phosphate. Etiology undetermined 5. Parkinson's disease 6. Possible history of rheumatoid arthritis 7. Diabetes mellitus 8. High blood pressure 9. Hyperlipidemia 10. Gastroesophageal reflux disease 11. History of bilateral hip surgery. 12. See past history 01/20/2017. Today's chest x-ray is markedly better. Congestive heart failure is about 70-80% resolved and stable left-sided pleural effusion. Natruretic peptide is now 236. ABGs on FiO2 of 59% and mechanical ventilation shows a pH of 7.39, PCO2 31.5, PO2 166 and bicarb is 20.6. Nares are growing MRSA. Electrolytes are normal. Creatinine is 3.02 BUN is 66. White count 6900 Doppler venograms of the lower extremities. No evidence of deep venous thrombosis Physical exam. Psychiatric. Patient can be aroused and she tries to cooperate. Neurologic. Cranial nerves are intact Thank and there is some movement in all 4 extremities. Face. Symmetrical. No edema lips or tongue Neck. Symmetrical no meningismus Lymphatics. No submandibular cervical supraclavicular or epitrochlear adenopathy Chest is fairly clear with slight large airway congestion Heart lateral PMI Abdomen nondistended Lower extremities no deep venous thrombophlebitis The remainder the physical exam is negative Plan. 01/19/2017. 1. Adjustments made to mechanical ventilation. Begin weaning protocol and physical therapy protocol 2. Output is poor will ask renal to see the patient 3. Doppler venograms of the lower extremities 4. Daily chest x-ray ABGs and lab been ordered 5. See orders. 6. Deep venous thrombophlebitis prevention protocol 7. Proton pump inhibitor protocol per 01/20/2017. 1. Continue weaning protocol 2. Congestive heart failure looks better 3. See today's note above. Exam (Progress Note) - Constitutional Vitals: Period Temp Pulse Resp BP Sys/Romero Pulse Ox Last 24 Hr 97.1 F-99.3 F 46-89 15-23 117-232/49-87 99-100 Results - Labs CBC & BMP: 01/20/17 09:29 01/20/17 09:29
--- NOTE | 2017-01-20 14:32 | Hospitalist Progress Note ---
Hospitalist: Subjective Interval history: 71 yo WF with acute respiratory failure due to congestive heart failure on mechanical ventilation. She is comfortable on the ventilator. Exam - Constitutional Vitals: Period Temp Pulse Resp BP Sys/Romero Pulse Ox Last 24 Hr 97.1 F-99.0 F 62-88 20-30 117-232/53-99 99-100 Exam: General: No Acute Distress HEENT: Normocephalic, atraumatic Neck: Supple, No JVD Chest: Clear to auscultation B/L CV: S1 + S2 audible without murmur, gallop or rub Abd: soft, NT, Non-distended, BS + Ext: No edema Skin: No purpura, bruising or rash Rheumatologic: No Joint deformities Results - Labs CBC & BMP: 01/20/17 09:29 01/20/17 09:29 - Impressions Assessment and Plan: Acute on chronic systolic congestive heart failure Status: Acute Assessment and plan: Chest x-ray showed pulmonary edema, on IV Lasix, EF 40-45% on 2D echo, she is diuresing well with Lasix Current Visit: Yes Acute hypoxemic respiratory failure Status: Acute Assessment and plan: She is on mechanical ventilator Current Visit: Yes Hypertensive urgency Status: Acute Assessment and plan: She is on Norvasc 10 mg, hydralazine 50 mg 3 times daily as well as as needed IV labetalol. Her pressure improving Current Visit: Yes JOSE on CKD Status: Acute Assessment and plan: Monitor intake and output and creatinine. Hyperphosphatemia due to chronic kidney disease Current Visit: Yes Hyperkalemia Status: Acute Assessment and plan: Monitor, received 1 amp of calcium gluconate prn, also on lasix, this is better Current Visit: No Metabolic acidosis Status: Acute Assessment and plan: likely due to renal failure, monitor Current Visit: Yes Diabetes mellitus II Status: Chronic Assessment and plan: Uncontrolled, hemoglobin A1c was 9, she is on tube feeds, continue Lantus, monitor Accu-Cheks and adjust insulin dose based on Accu-Cheks Current Visit: No Coronary artery disease Status: Chronic Assessment and plan: She has previous stents to RCA and circumflex artery 10 years ago. No evidence of acute coronary syndrome, continue aspirin and Plavix. Mildly elevated troponin due to some supply demand mismatch Current Visit: Yes GERD Status: Chronic Assessment and plan: Stable Current Visit: Yes Parkinson's disease Status: Chronic Assessment and plan: Stable on Sinemet Current Visit: Yes Alzheimer's dementia Status: Chronic Assessment and plan: Stable on Exelon 9.5 mg/d patch Current Visit: Yes DVT prophylaxis with Lovenox
--- NOTE | 2017-01-20 20:09 | Order Completion Report ---
See report scanned to EMR
[2017-01-21] MEDS: INSULIN LISPRO 100 UNIT/ML SUBCUT SCH ×4 (01:09→17:59)
[2017-01-21] MEDS: DOPamine 800 MG/250 ML PREMIX IV SCH (03:08)
[2017-01-21 03:35] LABS: ABG Base Excess -2.9 MMOL/L (-2.5-2.5); ABG Oxygen Saturation 99.1 % (95-100); ABG PCO2 36.7 MM HG (35-48); ABG PH 7.381 (7.35-7.45); ABG TCO2 19.3 MMOL/L (23-27); Allen Test Positive; Pt O2 Delivery Device Ventilator
[2017-01-21] MEDS: FUROSEMIDE 40 MG/4 ML VIAL IV SCH ×4 (04:29→21:03)
[2017-01-21 07:12] LABS: Calcium 8.4 MG/DL (8.5-10.1); Osmolality,Calculated 311.4 MOS/KG (273-304); Phosphorous 4.7 MG/DL (2.5-4.9); Potassium 3.9 MMOL/L (3.5-5.1); Prealbumin 23.6 MG/DL (20-40)
--- NOTE | 2017-01-21 07:21 | Cardiology Progress Note ---
Assessment and Plan (1) Coronary artery disease Status: Chronic Assessment and plan: 75-year-old female, was followed by Dr. Kaufman in the past. Admitted with acute kidney injury, hyperkalemia, respiratory insufficiency, severe hypertension, junctional bradycardia. Elevated cardiac biomarkers, without major report changes, suggestive of demand ischemia. Cardiomyopathy with ejection fraction around 40-45%. Initially was on dopamine drip, now weaned off. Dementia, type 2 diabetes mellitus, morbid obesity. Acute kidney injury resolving, respiratory function is stable on the vent. -Bradycardia. This was likely due to severe metabolic and pulmonary issues, resolved. Start Coreg 3.125 mg for ICM. Check EKG. -Volume overload. Continue diuresis. -ICM, status post remote PCI. Continue aspirin, Plavix. No active bleeding issues. -Continue to monitor renal function. Hold off NALINI inhibitor. -HTN. Continue hydralazine, IV labetalol as needed. Add Imdur 30 mg daily. Current Visit: Yes (2) Type 2 diabetes mellitus Status: Chronic Current Visit: No Qualifiers: Diabetes mellitus complication detail: with chronic kidney disease (3) Dementia Status: Chronic Current Visit: No Qualifiers: Dementia type: Parkinson's disease (4) Diabetes mellitus Status: Chronic Current Visit: No Qualifiers: Diabetes mellitus type: type 2 (5) Acute renal failure Status: Acute Current Visit: No (6) Hyperkalemia Status: Acute Current Visit: No (7) Elevated troponin Status: Acute Current Visit: Yes (8) Bradycardia Status: Acute Current Visit: Yes (9) Acidosis Status: Acute Current Visit: Yes Cardiology - PN: Subj Interval history: Patient still intubated, currently unresponsive to verbal stimuli. Oxygenation better, blood pressure in the 150s, currently, sinus rhythm, without significant ectopy. No recurrence of junctional bradycardia. She did well with weaning trial yesterday. Hyperkalemia resolved. Exam (Progress Note) - Constitutional Vitals: Period Temp Pulse Resp BP Sys/Romero Pulse Ox Last 24 Hr 97.1 F-97.9 F 65-103 20-30 130-232/53-99 100-100 General appearance: no acute distress, morbidly obese - Head Head exam: Absent: contusion, hematoma - Eye Eye exam: Absent: periorbital swelling, laceration to eyelids - ENT ENT exam: Present: normal external ear exam - Neck Neck exam: Present: normal inspection - Respiratory Respiratory exam: Present: clear to auscultation bilaterally. Absent: rhonchi - Cardiovascular Cardiovascular exam: Present: regular rate and rhythm, systolic murmur. Absent : JVD - GI/Abdominal GI/Abdominal exam: Present: hypoactive bowel sounds. Absent: distended - Extremities Exam Extremities exam: Present: normal inspection, normal capillary refill - Neurological Exam Neurological exam: Present: other (Unresponsive) - Skin Skin exam: Present: normal color, warm. Absent: cyanosis Result/EKG - Labs CBC & BMP: 01/20/17 09:29 01/21/17 06:02 Lab Results: I have reviewed the past 24 hour labs Labs: Laboratory Results - last 24 hr 01/20/17 01/20/17 01/20/17 09:29 09:29 11:43 WBC 6.9 D RBC 4.07 Hgb 11.7 L Hct 37.1 MCV 91.2 MCH 29 MCHC 31.5 L RDW 14.5 Plt Count 147 D MPV 11.2 Neut % (Auto) 69.3 Lymph % (Auto) 21.0 L [place] % (Auto) 8.3 Eos % (Auto) 0.4 Baso % (Auto) 0.1 Neut # (Auto) 4.8 Lymph # (Auto) 1.4 [place] # (Auto) 0.6 Eos # (Auto) 0.0 Baso # (Auto) 0.0 Immature Gran % 0.9 Nucleated RBC % 0.0 Immature Gran # 0.06 Nucleated RBCs # 0.00 ABG pH ABG pCO2 ABG pO2 ABG HCO3 ABG Total CO2 ABG O2 Saturation ABG Base Excess FiO2 Sodium 141 Potassium 4.4 Chloride 110 H Carbon Dioxide 21 Anion Gap 14.4 BUN 66 H Creatinine 3.00 H GFR Calculation 17 BUN/Creatinine Ratio 22.00 H Glucose 285 H POC Glucose 309 H Calculated Osmolality 309.3 H Calcium 8.4 L Phosphorus Magnesium Prealbumin 01/20/17 01/20/17 01/21/17 18:18 23:06 03:25 WBC RBC Hgb Hct MCV MCH MCHC RDW Plt Count MPV Neut % (Auto) Lymph % (Auto) [place] % (Auto) Eos % (Auto) Baso % (Auto) Neut # (Auto) Lymph # (Auto) [place] # (Auto) Eos # (Auto) Baso # (Auto) Immature Gran % Nucleated RBC % Immature Gran # Nucleated RBCs # ABG pH 7.381 ABG pCO2 36.7 ABG pO2 202.0 H ABG HCO3 22.0 ABG Total CO2 19.3 L ABG O2 Saturation 99.1 ABG Base Excess -2.9 L FiO2 59.00 Sodium Potassium Chloride Carbon Dioxide Anion Gap BUN Creatinine GFR Calculation BUN/Creatinine Ratio Glucose POC Glucose 325 H 323 H Calculated Osmolality Calcium Phosphorus Magnesium Prealbumin 01/21/17 01/21/17 05:13 06:02 WBC RBC Hgb Hct MCV MCH MCHC RDW Plt Count MPV Neut % (Auto) Lymph % (Auto) [place] % (Auto) Eos % (Auto) Baso % (Auto) Neut # (Auto) Lymph # (Auto) [place] # (Auto) Eos # (Auto) Baso # (Auto) Immature Gran % Nucleated RBC % Immature Gran # Nucleated RBCs # ABG pH ABG pCO2 ABG pO2 ABG HCO3 ABG Total CO2 ABG O2 Saturation ABG Base Excess FiO2 Sodium 140 Potassium 3.9 Chloride 104 Carbon Dioxide 23 Anion Gap 16.9 H BUN 74 H Creatinine 2.90 H GFR Calculation 18 BUN/Creatinine Ratio 25.00 H Glucose 298 H POC Glucose 351 H Calculated Osmolality 311.4 H Calcium 8.4 L Phosphorus 4.7 Magnesium 2.0 Prealbumin 23.6 - EKG EKG results: interpreted by me
[2017-01-21] MEDS: PROPOFOL 1,000 MG/100 ML BOTTLE IV SCH (07:27)
--- NOTE | 2017-01-21 07:28 | XRay Report ---
XR chest 1V portable Indication: Ventilator patient Comparison: One January 2017 Findings: The heart and mediastinum are stable in size and configuration. The lines and tubes are unchanged in position. The pulmonary vascularity appears slightly improved. No lung infiltrates, effusions, pneumothorax or other abnormality is demonstrated. Impression: Slight improvement in pulmonary vascularity. No other significant changes. PROCEDURE INTERPRETED AT [facility] DEPARTMENT OF RADIOLOGY Final Report Signed by: Dr. Petros Nagy
[2017-01-21] MEDS: CARVEDILOL 3.125 MG TABLET PO SCH ×2 (09:01→21:03)
[2017-01-21] MEDS: amLODIPine 10 MG TABLET PO SCH (09:01)
[2017-01-21] MEDS: ASPIRIN EC 81 MG TABLET PO SCH (09:01)
[2017-01-21] MEDS: ISOSORBIDE MONONITRATE 30 MG TABLET PO SCH (09:01)
[2017-01-21] MEDS: CARBIDOPA/LEVODOPA 25-100 MG TABLET PO SCH ×3 (09:01→21:07)
[2017-01-21] MEDS: RIVASTIGMINE 9.5 MG/24 HR PATCH TRANSDERM SCH (09:01)
[2017-01-21] MEDS: CLOPIDOGREL 75 MG TABLET PO SCH (09:01)
[2017-01-21] MEDS: ENOXAPARIN 30 MG/0.3 ML SYRINGE SUBCUT SCH (09:02)
[2017-01-21] MEDS: INSULIN GLARGINE 100 UNIT/ML SUBCUT SCH ×2 (09:02→21:03)
--- NOTE | 2017-01-21 11:24 | Pulmonology Progress Note ---
Pulmonary - PN: Subj Interval history: Graham Louis, [facility] acting as scribe for Dr. Maikel Soliz This is a 71-year-old female who we saw in pulmonary consultation on 01/19/2017. At that time, our impressions were: 1. Acute respiratory failure probably secondary to congestive heart failure but watch for other causes. Requiring intubation mechanical ventilation. Note the patient has a #6 tube. 2. Past history of heart disease requiring stents 3. Chronic renal failure. Poor response to IV push Lasix. Mild hyperkalemia. 4. Abnormal alkaline phosphate. Etiology undetermined 5. Parkinson's disease 6. Possible history of rheumatoid arthritis 7. Diabetes mellitus 8. High blood pressure 9. Hyperlipidemia 10. Gastroesophageal reflux disease 11. History of bilateral hip surgery. 12. See past history 01/20/2017. Today's chest x-ray is markedly better. Congestive heart failure is about 70-80% resolved and stable left-sided pleural effusion. Natruretic peptide is now 236. ABGs on FiO2 of 59% and mechanical ventilation shows a pH of 7.39, PCO2 31.5, PO2 166 and bicarb is 20.6. Nares are growing MRSA. Electrolytes are normal. Creatinine is 3.02 BUN is 66. White count 6900. 01/21/2017. Patient's chest x-ray is stable today. She is continuing on the weaning protocol as tolerated although there are no respiratory notes since 01/19. Sputum gram stain showed gram positive cocci in pairs, rare fungal elements, and many white blood cells. Sputum culture is reportedly growing light yeast and "light growth normal respiratory ivett". MRSA screen of the nares was positive. Bactroban has been ordered. Physical therapy protocol has been ordered. Note, physical therapy was not available over the weekend. Medications have been reviewed. We made no changes today. Labs been reviewed. Creatinine has improved to 2.90, BUN 74, electrolytes were normal; calcium 8.4, BNP 162 ABGs this morning on an FiO2 of 59% and mechanical ventilation showed pH of 7.381, PCO2 36.7, PO2 202.0, bicarb 22.0, and oxygen saturation 99.1%. Exam (Progress Note) - Constitutional Vitals: Period Temp Pulse Resp BP Sys/Romero Pulse Ox Last 24 Hr 97.2 F-97.9 F 77-103 20-30 130-210/65-99 100-100 Exam: Chest is fairly clear Heart with a lateral PMI Abdomen is nondistended Lower extremities with nothing to suggest acute deep venous thrombophlebitis Psychiatric/neurologic unchanged Plan: Start physical therapy protocol. Continue vent weaning as tolerated. Daily chest x-ray and ABGs while on ventilator. See orders. Results - Labs CBC & BMP: 01/20/17 09:29 01/21/17 06:02
[2017-01-21] MEDS: MULTIVITAMIN LIQUID (CENTRUM) 60 ML BOTTLE NG SCH (13:40)
[2017-01-21] MEDS: ZINC OXIDE PASTE 113 GM TUBE TOP SCH ×2 (13:41→21:04)
--- NOTE | 2017-01-21 14:08 | Hospitalist Progress Note ---
Hospitalist: Subjective Interval history: 71-year-old white female with acute respiratory failure due to CHF exacerbation with pulmonary edema. She is getting weaning trials. Exam - Constitutional Vitals: Period Temp Pulse Resp BP Sys/Romero Pulse Ox Last 24 Hr 97.2 F-98.0 F 77-103 17-21 91-183/51-99 99-100 Exam: General: No Acute Distress HEENT: Normocephalic, atraumatic Neck: Supple, No JVD Chest: Clear to auscultation B/L CV: S1 + S2 audible without murmur, gallop or rub Abd: soft, NT, Non-distended, BS + Ext: No edema Skin: No purpura, bruising or rash Rheumatologic: No Joint deformities Results - Labs CBC & BMP: 01/20/17 09:29 01/21/17 06:02 - Impressions Assessment and Plan: Acute on chronic systolic congestive heart failure Status: Acute Assessment and plan: on IV Lasix, EF 40-45% on 2D echo, she is diuresing well with Lasix Current Visit: Yes Acute hypoxemic respiratory failure Status: Acute Assessment and plan: She is on mechanical ventilator with weaning trials in progress Current Visit: Yes Hypertensive urgency Status: Acute Assessment and plan: Blood Pressure improved after adjusting medications Current Visit: Yes JOSE on CKD Status: Acute Assessment and plan: Monitor intake and output and creatinine. Hyperphosphatemia due to chronic kidney disease Current Visit: Yes Hyperkalemia Status: Acute Assessment and plan: Monitor, received 1 amp of calcium gluconate prn, also on lasix, this is better Current Visit: No Metabolic acidosis Status: Acute Assessment and plan: likely due to renal failure, monitor Current Visit: Yes Diabetes mellitus II Status: Chronic Assessment and plan: Uncontrolled, hemoglobin A1c was 9, she is on tube feeds, continue Lantus, monitor Accu-Cheks and adjust insulin dose based on Accu-Cheks Current Visit: No Coronary artery disease Status: Chronic Assessment and plan: She has previous stents to RCA and circumflex artery 10 years ago. No evidence of acute coronary syndrome, continue aspirin and Plavix. Mildly elevated troponin due to some supply demand mismatch Current Visit: Yes GERD Status: Chronic Assessment and plan: Stable Current Visit: Yes Parkinson's disease Status: Chronic Assessment and plan: Stable on Sinemet Current Visit: Yes Alzheimer's dementia Status: Chronic Assessment and plan: Stable on Exelon 9.5 mg/d patch Current Visit: Yes History of ischemic stroke Status: Chronic Assessment and plan: She was bedridden in a skilled nursing Current Visit: No DVT prophylaxis with Lovenox
[2017-01-21] MEDS: MUPIROCIN 2% OINT 22 GM TUBE TOP SCH ×2 (16:15→21:04)
--- NOTE | 2017-01-21 20:12 | Nephrology Progress Note ---
Nephrology - PN: Subj Interval history: Patient is resting. Remains ventilated but no acute changes. Blood pressures been adjusted. Serum potassium is stable at 4.4. Serum creatinine is noted to be 3.0. Urine output has picked up. No fevers or chills. 01/21/2017. The patient is resting comfortably. More awake and alert. Serum creatinine is 2.9. Exam (PN)-Nephrology - Vital Signs Vital signs: Period Temp Pulse Resp BP Sys/Romero Pulse Ox Last 24 Hr 97.2 F-99.5 F 86-106 17-33 91-180/47-87 98-100 - General Appearance General appearance: well-developed, well-nourished, intubated EENT: ATNC Respiratory: clear Cardiology: regular rate, regular rhythm Gastrointestinal: normoactive bowel sounds, absent bowel sounds Musculoskeletal: no clubbing - Lab 01/20/17 09:29 01/21/17 06:02 Most recent lab results ABG pH 7.381 (7.35-7.45) 01/21/17 03:25 ABG pCO2 36.7 MM HG (35-48) 01/21/17 03:25 ABG pO2 202.0 MM HG (80-95) H 01/21/17 03:25 ABG HCO3 22.0 MMOL/L (20-26) 01/21/17 03:25 ABG O2 Saturation 99.1 % (95-100) 01/21/17 03:25 Calcium 8.4 MG/DL (8.5-10.1) L 01/21/17 06:02 Phosphorus 4.7 MG/DL (2.5-4.9) 01/21/17 06:02 Magnesium 2.0 MG/DL (1.8-2.4) 01/21/17 06:02 Assessment and Plan (1) Acute renal failure Status: Acute Assessment and plan: Acute on chronic kidney disease. Continue to follow renal function with BMP. Current Visit: No (2) Elevated serum creatinine Problem details: Most likely due to bactrim competitive inhibition of creatinine secretion. Improved. Status: Acute Current Visit: No (3) Hypertension Status: Chronic Current Visit: No Qualifiers: Hypertension type: essential hypertension Qualified Code(s): I10 - Essential (primary) hypertension (4) Respiratory distress Status: Acute Assessment and plan: On ventilator. Current Visit: Yes (5) Hyperkalemia Status: Resolved Assessment and plan: Resolved Current Visit: Yes
[2017-01-21] MEDS: SENNA 8.6 MG TABLET PO PRN (21:03)
[2017-01-22] MEDS: INSULIN LISPRO 100 UNIT/ML SUBCUT SCH ×5 (00:24→23:47)
[2017-01-22] MEDS: PROPOFOL 1,000 MG/100 ML BOTTLE IV SCH (02:07)
[2017-01-22 03:31] LABS: ABG Base Excess -1.5 MMOL/L (-2.5-2.5); ABG HCO3 23.2 MMOL/L (20-26); ABG Oxygen Saturation 99.5 % (95-100); ABG PCO2 35.9 MM HG (35-48); ABG PH 7.408 (7.35-7.45); ABG TCO2 20.2 MMOL/L (23-27); Allen Test Positive; Pt O2 Delivery Device Ventilator
[2017-01-22] MEDS: FUROSEMIDE 40 MG/4 ML VIAL IV SCH ×3 (03:32→18:33)
[2017-01-22] MEDS: DOPamine 800 MG/250 ML PREMIX IV SCH (04:33)
--- NOTE | 2017-01-22 04:40 | Order Completion Report ---
See report scanned to EMR
[2017-01-22 06:43] LABS: Basophils % 0.1 % (0.0-0.8); Eosinophils # 0.1 10*3/uL (0.0-0.87); Hematocrit 34.4 VOL% (35.7-47.0); Hemoglobin 11.2 GM/DL (12.0-16.0); Immature Granulocytes % 0.7 %; Immature Granulocytes Absolute 0.06 #; Lymphocytes # 1.2 10*3/uL (1.4-4.0); Lymphocytes % 13.7 % (21.3-54.2); Mean Corpuscular HGB Conc 32.6 GM/DL (32-36); Mean Corpuscular Hemoglobin 28 PG (27-34); Mean Corpuscular Volume 86.6 FL (87-102); Mean Platelet Volume 12.2 FL (9.6-12.0); Monocytes # 0.8 10*3/uL (0.11-0.8); Monocytes % 8.6 % (1.7-12.7); Neutrophils # 6.9 10*3/uL (1.4-7.4); Neutrophils % 75.9 % (38.7-73.9); Platelet Count 181 T/CUMM (130-400); Red Blood Count 3.97 MC/CUMM (3.8-5.5); Red Cell Distribution Width 14.5 % (9.3-17.3)
[2017-01-22 07:14] LABS: Calcium 8.2 MG/DL (8.5-10.1); Osmolality,Calculated 312.7 MOS/KG (273-304)
[2017-01-22 07:16] LABS: Hypochromasia 1+; Platelet Estimate Normal
[2017-01-22 07:17] LABS: Microcytosis Slight
--- NOTE | 2017-01-22 08:16 | Physician Query Form ---
CLICK EDIT DOCUMENT TO SELECT QUERY ANSWER --> OK --> SIGN Bee De La Rosa RN, CCDS Certified Clinical Supervisor [employer]ce[employer] W) [phone] (f) [phone] [email or web address] PROVIDERS: Make your selection(s) from the choices in EACH section by typing an "x" and enter comments in the comment section. Please use your independent medical judgment in providing your response. This request does not imply that any particular answer is desired or expected. CLINICAL INDICATORS: (Providers should not edit this section) "Cardiomyopathy with ejection fraction around 40-45%. Initially was on dopamine drip, now weaned off." Can you please further clarify the type of Cardiomyopathy? (x ) Non-ischemic ( ) Ischemic ( ) Viral ( ) Dilated ( ) Hypertensive ( ) Arteriosclerotic ( ) Due to alcohol ( ) Due to drugs, specify drug: ( ) Due to sarcoidosis ( ) Due to tuberculosis ( ) Due to progressive muscular dystrophy ( ) Amyloid ( ) Congenital ( ) Other type, please specify: ( ) Clinically unable to determine COMMENTS: PLEASE ALSO DOCUMENT RESPONSE IN PROGRESS NOTES AND/OR DISCHARGE SUMMARY Use of terms such as suspected, likely, or probable (associated with a specific diagnosis that is being evaluated, monitored, or treated as if it exists) are acceptable and can be restated in the discharge summary if not ruled out. MTDD
--- NOTE | 2017-01-22 08:17 | XRay Report ---
XR chest 1V portable Indication: Ventilator patient Comparison: 21 January 2017 Findings: The heart and mediastinum are stable in size and configuration. The lines and tubes are unchanged in position. The pulmonary vascularity is normal in caliber. Linear densities are present in the left lung similar to previous exam. No other lung infiltrates, effusions, pneumothorax or other abnormality is demonstrated. Impression: No significant change PROCEDURE INTERPRETED AT [facility] DEPARTMENT OF RADIOLOGY Final Report Signed by: Dr. Petros Nagy
--- NOTE | 2017-01-22 08:42 | Order Completion Report ---
See report scanned to EMR
[2017-01-22] MEDS: MUPIROCIN 2% OINT 22 GM TUBE TOP SCH ×2 (09:14→21:00)
--- NOTE | 2017-01-22 10:08 | Hospitalist Progress Note ---
Assessment and Plan (1) Acute respiratory failure Status: Acute Assessment and plan: due to CHF exacerbation with pulmonary edema.She is getting weaning trials.Continue vent support and IV Lasix Current Visit: Yes (2) Acute on chronic systolic (congestive) heart failure Status: Acute Assessment and plan: on IV Lasix, EF 40-45% on 2D echo, she is diuresing well with Lasix, Cardiology is following. Current Visit: Yes (3) Acute on chronic renal failure Status: Acute Assessment and plan: Most likely due to bactrim competitive inhibition of creatinine secretion. Nephrology is following. Current Visit: Yes (4) Diabetes mellitus Status: Chronic Assessment and plan: HbA1c is 9.0. This is poorly controlled. Increase Lantus to 45units bid, follow response. Current Visit: No Qualifiers: Diabetes mellitus type: type 2 (5) Hypertension Status: Chronic Assessment and plan: stable, continue with current regime. Current Visit: No Qualifiers: Hypertension type: essential hypertension Qualified Code(s): I10 - Essential (primary) hypertension (6) Hyperkalemia Status: Resolved Assessment and plan: Improved Current Visit: Yes (7) Coronary artery disease Status: Chronic Assessment and plan: She has previous stents to RCA and circumflex artery 10 years ago. No evidence of acute coronary syndrome, continue aspirin and Plavix. Mildly elevated troponin due to some supply demand mismatch and possibly RF. Cardiology is following. Current Visit: Yes (8) Parkinsons Status: Acute Assessment and plan: Stable on Sinemet Current Visit: No (9) Alzheimer disease Status: Chronic Assessment and plan: Stable on Exelon 9.5 mg/d patch Current Visit: No (10) History of stroke Status: Acute Assessment and plan: She was bedridden in a assisted. DVT prophylaxis with Lovenox Current Visit: Yes Hospitalist: Subjective Interval history: Patient seen this am, awake but still on the vent.She is undergoing weaning parameters. She has a feeding tube in place. Dopamine has been been weaned off. Her blood sugar is also creeping up. Exam - Constitutional Vitals: Period Temp Pulse Resp BP Sys/Romero Pulse Ox Last 24 Hr 97.8 F-99.5 F 77-106 15-37 93-146/47-76 98-100 General appearance: no acute distress, other (intubated, awake on mild sedation) - Respiratory Respiratory exam: Present: clear to auscultation bilaterally - Cardiovascular Cardiovascular exam: Present: regular rate and rhythm - GI/Abdominal GI/Abdominal exam: Present: normal bowel sounds - Extremities Exam Extremities exam: Present: normal inspection Results - Labs CBC & BMP: 01/22/17 05:33 01/22/17 05:33 Lab Results: I have reviewed the past 24 hour labs
[2017-01-22] MEDS: CLOPIDOGREL 75 MG TABLET PO SCH (11:00)
[2017-01-22] MEDS: MULTIVITAMIN LIQUID (CENTRUM) 60 ML BOTTLE NG SCH (11:01)
[2017-01-22] MEDS: ASPIRIN EC 81 MG TABLET PO SCH (11:01)
[2017-01-22] MEDS: CARVEDILOL 3.125 MG TABLET PO SCH ×2 (11:01→20:59)
[2017-01-22] MEDS: ISOSORBIDE MONONITRATE 30 MG TABLET PO SCH (11:01)
[2017-01-22] MEDS: CARBIDOPA/LEVODOPA 25-100 MG TABLET PO SCH ×3 (11:01→21:07)
[2017-01-22] MEDS: amLODIPine 10 MG TABLET PO SCH (11:01)
[2017-01-22] MEDS: ZINC OXIDE PASTE 113 GM TUBE TOP SCH ×2 (11:01→21:07)
[2017-01-22] MEDS: ENOXAPARIN 30 MG/0.3 ML SYRINGE SUBCUT SCH (11:02)
[2017-01-22] MEDS: RIVASTIGMINE 9.5 MG/24 HR PATCH TRANSDERM SCH (11:08)
[2017-01-22] MEDS: INSULIN GLARGINE 100 UNIT/ML SUBCUT SCH ×3 (11:56→21:00)
--- NOTE | 2017-01-22 12:35 | Pulmonology Progress Note ---
Pulmonary - PN: Subj Interval history: This is a 71-year-old female whom I saw in pulmonary consultation on 01/19/2017. My impressions were. 1. Acute respiratory failure probably secondary to congestive heart failure but watch for other causes. Requiring intubation mechanical ventilation. Note the patient has a #6 tube 2. Past history of heart disease requiring stents 3. Chronic renal failure. Poor response to IV push Lasix. Mild hyperkalemia. 4 abnormal alkaline phosphate. Etiology undetermined 5. Parkinson's disease 6. Possible history of rheumatoid arthritis 7. Diabetes mellitus 8. High blood pressure 9. Hyperlipidemia 10. Gastroesophageal reflux disease 11. History of bilateral hip surgery. 12. See past history 01/20/2017. Today's chest x-ray is markedly better. Congestive heart failure is about 70-80% resolved and stable left-sided pleural effusion. Natruretic peptide is now 236. ABGs on FiO2 of 59% and mechanical ventilation shows a pH of 7.39, PCO2 31.5, PO2 166 and bicarb is 20.6. Nares are growing MRSA. Electrolytes are normal. Creatinine is 3.02 BUN is 66. White count 6900 Doppler venograms of the lower extremities. No evidence of deep venous thrombosis 01/22/2017. This patient is moving to stage IV of the weaning protocol and she looks good today. Tomorrow morning early when to put her on a T-tube and will recheck her blood gases several hours into this. Hopefully she will be ready for extubation. Chest x-ray shows a small amount of pleural effusion on the right. ABGs were stable. CBC stable. Electrolytes are normal. Creatinine is 3.3 with a BUN of 94. Natruretic peptide is dropped to 88. Physical exam. Psychiatric. Patient can be aroused and she tries to cooperate. Neurologic. Cranial nerves are intact Thank and there is some movement in all 4 extremities. Face. Symmetrical. No edema lips or tongue Neck. Symmetrical no meningismus Lymphatics. No submandibular cervical supraclavicular or epitrochlear adenopathy Chest is fairly clear with slight large airway congestion Heart lateral PMI Abdomen nondistended Lower extremities no deep venous thrombophlebitis The remainder the physical exam is negative Plan. 01/19/2017. 1. Adjustments made to mechanical ventilation. Begin weaning protocol and physical therapy protocol 2. Output is poor will ask renal to see the patient 3. Doppler venograms of the lower extremities 4. Daily chest x-ray ABGs and lab been ordered 5. See orders. 6. Deep venous thrombophlebitis prevention protocol 7. Proton pump inhibitor protocol per 01/20/2017. 1. Continue weaning protocol 2. Congestive heart failure looks better 3. See today's note above. 01/22/2017. 1. Weaning protocol. T-tube trial tomorrow morning 2. Follow-up lab chest x-ray and ABG Exam (Progress Note) - Constitutional Vitals: Period Temp Pulse Resp BP Sys/Romero Pulse Ox Last 24 Hr 97.8 F-99.5 F 77-106 15-37 93-146/54-76 98-100 Results - Labs CBC & BMP: 01/22/17 05:33 01/22/17 05:33
--- NOTE | 2017-01-22 15:52 | Nephrology Progress Note ---
Nephrology - PN: Subj Interval history: Patient is resting. Remains ventilated but no acute changes. Blood pressures been adjusted. Serum potassium is stable at 4.4. Serum creatinine is noted to be 3.0. Urine output has picked up. No fevers or chills. 01/21/2017. The patient is resting comfortably. More awake and alert. Serum creatinine is 2.9. 01/22/2017. The patient is resting comfortably. She is continue with only weaning trials. Serum creatinine is noted to be 3.3. Continue to monitor for renal recovery. Exam (PN)-Nephrology - Vital Signs Vital signs: Period Temp Pulse Resp BP Sys/Romero Pulse Ox Last 24 Hr 97.8 F-99.5 F 77-106 15-37 93-146/54-76 98-100 - General Appearance General appearance: well-developed, intubated EENT: ATNC Neck: supple Respiratory: clear Cardiology: regular rate, regular rhythm Gastrointestinal: normoactive bowel sounds, no tenderness Neurologic: CN 3-12 intact Musculoskeletal: no clubbing - Lab 01/22/17 05:33 01/22/17 05:33 Most recent lab results ABG pH 7.408 (7.35-7.45) 01/22/17 03:29 ABG pCO2 35.9 MM HG (35-48) 01/22/17 03:29 ABG pO2 256.0 MM HG (80-95) H 01/22/17 03:29 ABG HCO3 23.2 MMOL/L (20-26) 01/22/17 03:29 ABG O2 Saturation 99.5 % (95-100) 01/22/17 03:29 Calcium 8.2 MG/DL (8.5-10.1) L 01/22/17 05:33 Phosphorus 4.7 MG/DL (2.5-4.9) 01/21/17 06:02 Magnesium 2.0 MG/DL (1.8-2.4) 01/22/17 05:33 Assessment and Plan (1) Acute renal failure Status: Acute Assessment and plan: Acute on chronic kidney disease. Continue to follow renal function with BMP. Current Visit: No (2) Elevated serum creatinine Problem details: Most likely due to bactrim competitive inhibition of creatinine secretion. Improved. Status: Acute Current Visit: No (3) Hypertension Status: Chronic Current Visit: No Qualifiers: Hypertension type: essential hypertension Qualified Code(s): I10 - Essential (primary) hypertension (4) Respiratory distress Status: Acute Assessment and plan: On ventilator. Current Visit: Yes (5) Hyperkalemia Status: Resolved Assessment and plan: Resolved Current Visit: Yes
--- NOTE | 2017-01-22 16:43 | Cardiology Progress Note ---
Kristopher Dodd Lesley, GWENDOLYN, am scribing for, and in the presence of, Eddie Cadet MD 16:43. Assessment and Plan - Time spent with patient Time spent with patient: Greater than 30 minutes (Record review, assessment, documentation) (1) Acute on chronic renal failure Status: Acute Assessment and plan: SEE PLAN LISTED BELOW Current Visit: Yes (2) Diabetes mellitus Status: Chronic Assessment and plan: SEE PLAN LISTED BELOW Current Visit: No Qualifiers: Diabetes mellitus type: type 2 (3) Hypertension Status: Chronic Assessment and plan: SEE PLAN LISTED BELOW Current Visit: No Qualifiers: Hypertension type: essential hypertension Qualified Code(s): I10 - Essential (primary) hypertension (4) Acute respiratory failure Status: Acute Assessment and plan: SEE PLAN LISTED BELOW Current Visit: Yes (5) Elevated troponin Status: Acute Assessment and plan: SEE PLAN LISTED BELOW Current Visit: Yes (6) Coronary artery disease Status: Chronic Assessment and plan: SEE PLAN LISTED BELOW Current Visit: Yes (7) Bradycardia Status: Resolved Assessment and plan: SEE PLAN LISTED BELOW Current Visit: Yes (8) Acidosis Status: Acute Assessment and plan: SEE PLAN LISTED BELOW Current Visit: Yes Cardiology - PN: Subj Interval history: OPHTHALMIC SURGICAL ASSISTANT: Dr. Camp (new) SUMMARY: Pt. intubated and sedated, seen in ICU. Ms. Wood 71-year-old female, was followed by Dr. Kaufman in the past. Admitted with acute kidney injury, hyperkalemia, respiratory insufficiency, severe hypertension, junctional bradycardia. Elevated cardiac biomarkers, without major report changes, suggestive of demand ischemia. Cardiomyopathy with ejection fraction around 40- 45%. Currently weaned off Dopamine infusion. PMH: Dementia, type 2 diabetes mellitus, morbid obesity. Last heart catheterization was 2007 with widely patent stents in mild to moderate coronary disease present. In recent hospitalization, she was not seen by assistant golf course superintendent. JANUARY 22, 2017: The patient was seen today in ICU, she continues to be intubated and sedated. Vital signs stable, with improvement in blood pressure control. ABGs noted, respiratory function stable on vent, patient continues with weaning trial. No significant change in chest xray, left pleural effusion. Hemoglobin and hematocrit stable. Chronic renal failure with creatinine worse today at 3.3, BUN 94. BNP 88. History of CAD which is stable, chronic diabetes poorly controlled, chronic renal failure all being monitored. ROS: stable on ventilator sedated, no acute distress IMPRESSION AND PLAN: -BRADYCARDIA - This was likely due to severe metabolic and pulmonary issues, resolved. Tolerating Coreg 3.125 mg for ICM, repeat EKG today. -VOLUME OVERLOAD - Continue diuresis, creatinine rising at 3.3. -ICM - status post remote PCI. Continue aspirin, Plavix. No active bleeding issues. -RENAL FAILURE - Continue to monitor renal function. Hold NALINI inhibitor. -HTN - Continue hydralazine, Imdur 30 mg daily. Exam (Progress Note) - Constitutional Vitals: Period Temp Pulse Resp BP Sys/Romero Pulse Ox Last 24 Hr 97.9 F-99.5 F 81-106 17-37 91-162/47-80 98-100 Exam: General: Appears sedated on ventilator with no apparent distress. HEENT: PERRL, normocephalic, atraumatic. Mucous membranes moist. No jaundice noted. Conjunctiva moist and clear, sclerae anicteric. Neck: No JVD, no thyromegaly or lymphadenopathy noted. Cardiac: Regular rate and rhythm. No murmur rub or gallop. PMI is nondisplaced. Lungs: Essentially clear bilaterally to auscultation, respirations per ventilator. Abdomen: Soft, bowel sounds normoactive. Nontender and nondistended. No abdominal bruit or thrill noted. No masses noted. Musculoskeletal: No fluid collection. Decreased range of motion is noted. Extremities: No clubbing, cyanosis noted. No edema noted. Upper extremity pulses 2+. Lower extremity pulses 2+. Capillary refill less than 3 seconds. Skin: Warm and dry. No unusual lesions or rashes. Skin breakdown appreciated to right hand with dressing intact. Neuro: Sedated on ventilator. Result/EKG - Labs CBC & BMP: 01/22/17 05:33 01/22/17 05:33 Lab Results: I have reviewed the past 24 hour labs Labs: Laboratory Results - last 24 hr 01/21/17 01/21/17 01/21/17 12:42 17:28 23:12 WBC RBC Hgb Hct MCV MCH MCHC RDW Plt Count MPV Neut % (Auto) Lymph % (Auto) [place] % (Auto) Eos % (Auto) Baso % (Auto) Neut # (Auto) Lymph # (Auto) [place] # (Auto) Eos # (Auto) Baso # (Auto) Immature Gran % Nucleated RBC % Immature Gran # Nucleated RBCs # Platelet Estimate Immature Plt Fraction Hypochromasia Microcytosis ABG pH ABG pCO2 ABG pO2 ABG HCO3 ABG Total CO2 ABG O2 Saturation ABG Base Excess FiO2 Sodium Potassium Chloride Carbon Dioxide Anion Gap BUN Creatinine GFR Calculation BUN/Creatinine Ratio Glucose POC Glucose 259 H 202 H 283 H Calculated Osmolality Calcium Magnesium B-Natriuretic Peptide 01/22/17 01/22/17 01/22/17 03:29 05:19 05:33 WBC RBC Hgb Hct MCV MCH MCHC RDW Plt Count MPV Neut % (Auto) Lymph % (Auto) [place] % (Auto) Eos % (Auto) Baso % (Auto) Neut # (Auto) Lymph # (Auto) [place] # (Auto) Eos # (Auto) Baso # (Auto) Immature Gran % Nucleated RBC % Immature Gran # Nucleated RBCs # Platelet Estimate Immature Plt Fraction Hypochromasia Microcytosis ABG pH 7.408 ABG pCO2 35.9 ABG pO2 256.0 H ABG HCO3 23.2 ABG Total CO2 20.2 L ABG O2 Saturation 99.5 ABG Base Excess -1.5 FiO2 59.00 Sodium Potassium Chloride Carbon Dioxide Anion Gap BUN Creatinine GFR Calculation BUN/Creatinine Ratio Glucose POC Glucose 287 H Calculated Osmolality Calcium Magnesium B-Natriuretic Peptide 88 01/22/17 01/22/17 05:33 05:33 WBC 9.0 D RBC 3.97 Hgb 11.2 L Hct 34.4 L MCV 86.6 L MCH 28 MCHC 32.6 RDW 14.5 Plt Count 181 D MPV 12.2 H Neut % (Auto) 75.9 H Lymph % (Auto) 13.7 L [place] % (Auto) 8.6 Eos % (Auto) 1.0 Baso % (Auto) 0.1 Neut # (Auto) 6.9 Lymph # (Auto) 1.2 L [place] # (Auto) 0.8 Eos # (Auto) 0.1 Baso # (Auto) 0.0 Immature Gran % 0.7 Nucleated RBC % 0.0 Immature Gran # 0.06 Nucleated RBCs # 0.00 Platelet Estimate Normal Immature Plt Fraction 0.0 Hypochromasia 1+ Microcytosis Slight ABG pH ABG pCO2 ABG pO2 ABG HCO3 ABG Total CO2 ABG O2 Saturation ABG Base Excess FiO2 Sodium 138 Potassium 4.0 Chloride 102 Carbon Dioxide 24 Anion Gap 16.0 H BUN 94 H D Creatinine 3.30 H GFR Calculation 15 BUN/Creatinine Ratio 28.00 H Glucose 262 H POC Glucose Calculated Osmolality 312.7 H Calcium 8.2 L Magnesium 2.0 B-Natriuretic Peptide - Diagnostic Findings Procedure: Chest x-ray: report reviewed by me - EKG EKG results: interpreted by me, sinus rhythm Chichi Dodd Attila, MD, personally performed the services described in this documentation, ascribed by Judi Summers NP in my presence, and it is both accurate and complete [id number] .
[2017-01-22] MEDS ORDERED: LORazepam 2 MG/1 ML VIAL IM PRN (20:06)
[2017-01-22] MEDS ORDERED: FUROSEMIDE 40 MG/5 ML UDCUP PO SCH (20:30)
[2017-01-22] MEDS: FUROSEMIDE 40 MG/5 ML UDCUP PER TUBE SCH (20:59)
[2017-01-23] MEDS: PROPOFOL 1,000 MG/100 ML BOTTLE IV SCH ×2 (01:47→02:37)
[2017-01-23] MEDS: DOPamine 800 MG/250 ML PREMIX IV SCH (02:37)
[2017-01-23] MEDS: FUROSEMIDE 40 MG/5 ML UDCUP PER TUBE SCH ×4 (03:22→21:19)
[2017-01-23] MEDS: INSULIN LISPRO 100 UNIT/ML SUBCUT SCH ×4 (05:32→23:42)
[2017-01-23 06:28] LABS: Basophils % 0.1 % (0.0-0.8); Eosinophils # 0.2 10*3/uL (0.0-0.87); Eosinophils % 1.7 % (0.00-10.9); Hematocrit 37.3 VOL% (35.7-47.0); Hemoglobin 11.9 GM/DL (12.0-16.0); Immature Granulocytes % 0.8 %; Immature Granulocytes Absolute 0.09 #; Lymphocytes # 1.7 10*3/uL (1.4-4.0); Lymphocytes % 16.3 % (21.3-54.2); Mean Corpuscular HGB Conc 31.9 GM/DL (32-36); Mean Corpuscular Hemoglobin 28 PG (27-34); Mean Corpuscular Volume 87.6 FL (87-102); Mean Platelet Volume 11.5 FL (9.6-12.0); Monocytes # 1.2 10*3/uL (0.11-0.8); Monocytes % 10.9 % (1.7-12.7); Neutrophils # 7.4 10*3/uL (1.4-7.4); Neutrophils % 70.2 % (38.7-73.9); Platelet Count 181 T/CUMM (130-400); Red Blood Count 4.26 MC/CUMM (3.8-5.5); Red Cell Distribution Width 14.3 % (9.3-17.3); White Blood Count 10.6 T/CUMM (4-12)
[2017-01-23 07:04] LABS: Calcium 8.4 MG/DL (8.5-10.1); Magnesium 2.2 MG/DL (1.8-2.4); Osmolality,Calculated 318.7 MOS/KG (273-304); Potassium 3.9 MMOL/L (3.5-5.1)
[2017-01-23 07:04] LABS: ABG Base Excess -1.3 MMOL/L (-2.5-2.5); ABG HCO3 23.3 MMOL/L (20-26); ABG Oxygen Saturation 96.2 % (95-100); ABG PCO2 46.5 MM HG (35-48); ABG PH 7.337 (7.35-7.45); ABG PO2 88.5 MM HG (80-95); ABG TCO2 22.3 MMOL/L (23-27); Allen Test Positive
--- NOTE | 2017-01-23 07:23 | XRay Report ---
XR chest 1V portable Indication: Ventilator patient Comparison: 22 January 2017 Findings: The heart and mediastinum are stable in size and configuration. The lines and tubes are unchanged in position. The pulmonary vascularity is normal in caliber. Linear right midlung density is similar to previous exam. There is slight improvement in the left lower lung density. No other infiltrates, effusions, pneumothorax or other abnormality is demonstrated. Impression: Slight improvement in left lower lung density may indicate resolving atelectasis. No other significant change PROCEDURE INTERPRETED AT [facility] DEPARTMENT OF RADIOLOGY Final Report Signed by: Dr. Petros Nagy
[2017-01-23 07:29] LABS: Calcium 8.3 MG/DL (8.5-10.1); Osmolality,Calculated 318.7 MOS/KG (273-304); Potassium 3.9 MMOL/L (3.5-5.1)
[2017-01-23] MEDS: CARBIDOPA/LEVODOPA 25-100 MG TABLET PO SCH ×3 (08:05→21:23)
[2017-01-23] MEDS: SENNA 8.6 MG TABLET PO PRN (08:05)
[2017-01-23] MEDS: CARVEDILOL 3.125 MG TABLET PO SCH ×2 (08:05→21:18)
[2017-01-23] MEDS: INSULIN GLARGINE 100 UNIT/ML SUBCUT SCH ×2 (08:05→21:19)
[2017-01-23] MEDS: ENOXAPARIN 30 MG/0.3 ML SYRINGE SUBCUT SCH (08:05)
[2017-01-23] MEDS: ASPIRIN EC 81 MG TABLET PO SCH (08:05)
[2017-01-23] MEDS: ISOSORBIDE MONONITRATE 30 MG TABLET PO SCH (08:05)
[2017-01-23] MEDS: amLODIPine 10 MG TABLET PO SCH (08:05)
[2017-01-23] MEDS: CLOPIDOGREL 75 MG TABLET PO SCH (08:05)
[2017-01-23] MEDS: ZINC OXIDE PASTE 113 GM TUBE TOP SCH (08:06)
[2017-01-23] MEDS: MULTIVITAMIN LIQUID (CENTRUM) 60 ML BOTTLE NG SCH (08:06)
[2017-01-23] MEDS: RIVASTIGMINE 9.5 MG/24 HR PATCH TRANSDERM SCH (08:06)
[2017-01-23] MEDS: MUPIROCIN 2% OINT 22 GM TUBE TOP SCH ×2 (08:06→23:41)
--- NOTE | 2017-01-23 08:17 | Pulmonology Progress Note ---
Pulmonary - PN: Subj Interval history: This is a 71-year-old female whom I saw in pulmonary consultation on 01/19/2017. My impressions were. 1. Acute respiratory failure probably secondary to congestive heart failure but watch for other causes. Requiring intubation mechanical ventilation. Note the patient has a #6 tube 2. Past history of heart disease requiring stents 3. Chronic renal failure. Poor response to IV push Lasix. Mild hyperkalemia. 4 abnormal alkaline phosphate. Etiology undetermined 5. Parkinson's disease 6. Possible history of rheumatoid arthritis 7. Diabetes mellitus 8. High blood pressure 9. Hyperlipidemia 10. Gastroesophageal reflux disease 11. History of bilateral hip surgery. 12. See past history 01/20/2017. Today's chest x-ray is markedly better. Congestive heart failure is about 70-80% resolved and stable left-sided pleural effusion. Natruretic peptide is now 236. ABGs on FiO2 of 59% and mechanical ventilation shows a pH of 7.39, PCO2 31.5, PO2 166 and bicarb is 20.6. Nares are growing MRSA. Electrolytes are normal. Creatinine is 3.02 BUN is 66. White count 6900 Doppler venograms of the lower extremities. No evidence of deep venous thrombosis 01/22/2017. This patient is moving to stage IV of the weaning protocol and she looks good today. Tomorrow morning early when to put her on a T-tube and will recheck her blood gases several hours into this. Hopefully she will be ready for extubation. Chest x-ray shows a small amount of pleural effusion on the right. ABGs were stable. CBC stable. Electrolytes are normal. Creatinine is 3.3 with a BUN of 94. Natruretic peptide is dropped to 88. 01/23/2017. Patient was on a T-tube times several hours this morning she looks good and she is able to take deep breaths through the endotracheal tube. ABGs on FiO2 40% shows a pH 7.337, PCO2 46.5, PO2 88.5 and a bicarb of 23.3. Chest x-ray shows no heart failure no clear-cut infiltrates no pneumothorax. I will extubate her and will repeat her blood gases at 930 this morning and reevaluate her at that time. Electrolytes normal. Creatinine is 3.4 with a BUN of 117. White count is 10, 600 with 70 segs 16 lymphs and 11 monocytes. H&H 11.9/37.3. Microbiology shows a few yeast in the sputum and MRSA isolated from the nares Physical exam. Psychiatric. Alert oriented can follow commands and is cooperative Neurologic. Cranial nerves are intact. Moves all 4 extremities. Usually a little bit weak on the right as compared to the left. Face. Symmetrical. No edema lips or tongue Neck. Symmetrical no meningismus Lymphatics. No submandibular cervical supraclavicular or epitrochlear adenopathy Chest is fairly clear with slight large airway congestion Heart lateral PMI Abdomen nondistended Lower extremities no deep venous thrombophlebitis The remainder the physical exam is negative Plan. 01/19/2017. 1. Adjustments made to mechanical ventilation. Begin weaning protocol and physical therapy protocol 2. Output is poor will ask renal to see the patient 3. Doppler venograms of the lower extremities 4. Daily chest x-ray ABGs and lab been ordered 5. See orders. 6. Deep venous thrombophlebitis prevention protocol 7. Proton pump inhibitor protocol per 01/20/2017. 1. Continue weaning protocol 2. Congestive heart failure looks better 3. See today's note above. 01/22/2017. 1. Weaning protocol. T-tube trial tomorrow morning 2. Follow-up lab chest x-ray and ABG 01/23/2017 1. See today's note above. 2. Extubate 3. ABGs status report at 9:30 AM today 4. We will follow chest x-rays ABGs another day or 2 Exam (Progress Note) - Constitutional Vitals: Period Temp Pulse Resp BP Sys/Romero Pulse Ox Last 24 Hr 97.2 F-98.5 F 70-95 19-31 100-172/52-95 98-100 Results - Labs CBC & BMP: 01/23/17 05:18 01/23/17 05:18
--- NOTE | 2017-01-23 09:30 | Hospitalist Progress Note ---
Assessment and Plan (1) Acute respiratory failure Status: Acute Assessment and plan: due to CHF exacerbation with pulmonary edema.She was extubated this am.Continue oxygen support and follow Pulm's recommendations Current Visit: Yes (2) Acute on chronic systolic (congestive) heart failure Status: Acute Assessment and plan: on IV Lasix, EF 40-45% on 2D echo, she is diuresing well with Lasix, Cardiology is following. Current Visit: Yes (3) Acute on chronic renal failure Status: Acute Assessment and plan: Most likely due to bactrim competitive inhibition of creatinine secretion. Nephrology is following. Current Visit: Yes (4) Diabetes mellitus Status: Chronic Assessment and plan: HbA1c is 9.0. This is poorly controlled. Now that patient is extubated, she will start eating and TF will be dcd then we can properly assess the blood sugar. Continue current regime. Current Visit: No Qualifiers: Diabetes mellitus type: type 2 (5) Hypertension Status: Chronic Assessment and plan: bp dropped to the 90s/40s this am after taking the am bp meds,will reduce Norvasc to 5mg and follow response. Current Visit: No Qualifiers: Hypertension type: essential hypertension Qualified Code(s): I10 - Essential (primary) hypertension (6) Hyperkalemia Status: Resolved Assessment and plan: Improved Current Visit: Yes (7) Coronary artery disease Status: Chronic Assessment and plan: She has previous stents to RCA and circumflex artery 10 years ago. No evidence of acute coronary syndrome, continue aspirin and Plavix. Mildly elevated troponin due to some supply demand mismatch and possibly RF. Cardiology is following. Current Visit: Yes (8) Parkinsons Status: Acute Assessment and plan: Stable on Sinemet Current Visit: No (9) Alzheimer disease Status: Chronic Assessment and plan: Stable on Exelon 9.5 mg/d patch Current Visit: No (10) History of stroke Status: Acute Assessment and plan: She was bedridden in a senior care. DVT prophylaxis with Lovenox Current Visit: Yes Hospitalist: Subjective Interval history: Patient seen this am. She was extubated earlier on and appears stable of FM 40% oxygen.Her blood pressure was noted to have dropped to the 90s/40s after taking her am bp meds but she is asymptomatic. Exam - Constitutional Vitals: Period Temp Pulse Resp BP Sys/Romero Pulse Ox Last 24 Hr 97.2 F-98.5 F 70-95 19-31 100-172/52-95 98-100 General appearance: no acute distress, other (extubated) - Eye Eye exam: Present: EOMI - Respiratory Respiratory exam: Present: clear to auscultation bilaterally - Cardiovascular Cardiovascular exam: Present: regular rate and rhythm - GI/Abdominal GI/Abdominal exam: Present: normal bowel sounds - Extremities Exam Extremities exam: Present: normal inspection - Neurological Exam Neurological exam: Present: alert, oriented X3 Results - Labs CBC & BMP: 01/23/17 05:18 01/23/17 05:18 Lab Results: I have reviewed the past 24 hour labs
[2017-01-23 09:48] LABS: ABG Base Excess -1.3 MMOL/L (-2.5-2.5); ABG HCO3 23.1 MMOL/L (20-26); ABG Oxygen Saturation 85.3 % (95-100); ABG PCO2 45.8 MM HG (35-48); ABG PH 7.341 (7.35-7.45); ABG PO2 54.2 MM HG (80-95); ABG TCO2 22.3 MMOL/L (23-27); Allen Test Positive
[2017-01-23] MEDS: ALBUTEROL/IPRATROPIUM 3 ML NEB RESP TX SCH ×2 (12:17→17:47)
[2017-01-23] MEDS ORDERED: DEXTROSE 50% 25 GM/50 ML VIAL IV PRN (13:00)
--- NOTE | 2017-01-23 13:13 | Nephrology Progress Note ---
Nephrology - PN: Subj Interval history: Patient is resting. Remains ventilated but no acute changes. Blood pressures been adjusted. Serum potassium is stable at 4.4. Serum creatinine is noted to be 3.0. Urine output has picked up. No fevers or chills. 01/21/2017. The patient is resting comfortably. More awake and alert. Serum creatinine is 2.9. 01/22/2017. The patient is resting comfortably. She is continue with only weaning trials. Serum creatinine is noted to be 3.3. Continue to monitor for renal recovery. 01/23/2017. The patient is resting comfortably. She is now off the ventilator. She has been hemodynamically stable. Exam (PN)-Nephrology - Vital Signs Vital signs: Period Temp Pulse Resp BP Sys/Romero Pulse Ox Last 24 Hr 97.0 F-98.5 F 70-99 18-31 94-172/48-95 89-100 - General Appearance General appearance: well-developed, well-nourished EENT: ATNC Neck: supple Respiratory: clear Cardiology: regular rate, regular rhythm Gastrointestinal: normoactive bowel sounds, no tenderness Musculoskeletal: no clubbing Psychiatric: mood/affect appropriate - Lab 01/23/17 05:18 01/23/17 05:18 Most recent lab results ABG pH 7.341 (7.35-7.45) L 01/23/17 09:45 ABG pCO2 45.8 MM HG (35-48) 01/23/17 09:45 ABG pO2 54.2 MM HG (80-95) L 01/23/17 09:45 ABG HCO3 23.1 MMOL/L (20-26) 01/23/17 09:45 ABG O2 Saturation 85.3 % (95-100) L 01/23/17 09:45 Calcium 8.3 MG/DL (8.5-10.1) L 01/23/17 05:18 Phosphorus 4.7 MG/DL (2.5-4.9) 01/21/17 06:02 Magnesium 2.2 MG/DL (1.8-2.4) 01/23/17 05:18 Assessment and Plan (1) Acute renal failure Status: Acute Assessment and plan: Acute on chronic kidney disease. Continue to follow renal function with BMP. Current Visit: No (2) Elevated serum creatinine Problem details: Most likely due to bactrim competitive inhibition of creatinine secretion. Improved. Status: Acute Assessment and plan: Serum creatinine 3.4. Continue to watch for renal recovery. Daily BMP. Current Visit: No (3) Hypertension Status: Chronic Current Visit: No Qualifiers: Hypertension type: essential hypertension Qualified Code(s): I10 - Essential (primary) hypertension (4) Respiratory distress Status: Resolved Assessment and plan: On ventilator. Current Visit: Yes (5) Hyperkalemia Status: Resolved Assessment and plan: Resolved Current Visit: Yes
--- NOTE | 2017-01-23 13:51 | Cardiology Progress Note ---
Kristopher Dodd Lesley, GWENDOLYN, am scribing for, and in the presence of, Eddie Cadet MD 13:51. Assessment and Plan - Time spent with patient Time spent with patient: Greater than 30 minutes (Record review, assessment, and documentation) (1) Acute on chronic renal failure Status: Acute Assessment and plan: SEE PLAN LISTED BELOW Current Visit: Yes (2) Diabetes mellitus Status: Chronic Assessment and plan: SEE PLAN LISTED BELOW Current Visit: No Qualifiers: Diabetes mellitus type: type 2 (3) Hypertension Status: Chronic Assessment and plan: SEE PLAN LISTED BELOW Current Visit: No Qualifiers: Hypertension type: essential hypertension Qualified Code(s): I10 - Essential (primary) hypertension (4) Acute respiratory failure Status: Acute Assessment and plan: SEE PLAN LISTED BELOW Current Visit: Yes (5) Elevated troponin Status: Acute Assessment and plan: SEE PLAN LISTED BELOW Current Visit: Yes (6) Coronary artery disease Status: Chronic Assessment and plan: SEE PLAN LISTED BELOW Current Visit: Yes (7) Bradycardia Status: Resolved Assessment and plan: SEE PLAN LISTED BELOW Current Visit: Yes (8) Acidosis Status: Acute Assessment and plan: SEE PLAN LISTED BELOW Current Visit: Yes Cardiology - PN: Subj Interval history: SHELL SHOP SUPERVISOR: Dr. Camp (new) SUMMARY: Pt. intubated and sedated, seen in ICU. Ms. Wood 71-year-old female, was followed by Dr. Kaufman in the past. Admitted with acute kidney injury, hyperkalemia, respiratory insufficiency, severe hypertension, junctional bradycardia. Elevated cardiac biomarkers, without major report changes, suggestive of demand ischemia. Cardiomyopathy with ejection fraction around 40- 45%. Currently weaned off Dopamine infusion. PMH: Dementia, type 2 diabetes mellitus, morbid obesity. Last heart catheterization was 2007 with widely patent stents in mild to moderate coronary disease present. In recent hospitalization, she was not seen by artificial limb fitter. JANUARY 22, 2017: The patient was seen today in ICU, she continues to be intubated and sedated. Vital signs stable, with improvement in blood pressure control. ABGs noted, respiratory function stable on vent, patient continues with weaning trial. No significant change in chest xray, left pleural effusion. Hemoglobin and hematocrit stable. Chronic renal failure with creatinine worse today at 3.3, BUN 94. BNP 88. History of CAD which is stable, chronic diabetes poorly controlled, chronic renal failure all being monitored. JANUARY 23, 2017: The patient was seen today in ICU, she is intubated and on T-tube trial this morning. She is awake and alert, follows simple commands. Moves bilateral upper extremities to command. Blood pressures on the high side of normal, sinus rhythm on telemetry monitoring without further episodes of bradycardia noted. Labs reviewed. Continue monitoring chronic CAD, diabetes, and renal failure. CAD, hypertension, dysrhythmia are chronic and stable. ROS: stable on ventilator no acute distress IMPRESSION AND PLAN: -BRADYCARDIA - This was likely due to severe metabolic and pulmonary issues, resolved. Tolerating Coreg 3.125 mg for ICM. We will increase dose as tolerated by heart rate, blood pressure. -VOLUME OVERLOAD - Continue diuresis, creatinine rising at 3.4 and BUN 117, followed by Nephrology and Pulmonary. Chest xray improved today. -ICM - status post remote PCI. Continue aspirin, Plavix. No active bleeding issues. -RENAL FAILURE - Continue to monitor renal function. Hold NALINI inhibitor. -HTN - Continue hydralazine, Imdur 30 mg daily, Norvasc, beta candis. Exam (Progress Note) - Constitutional Vitals: Period Temp Pulse Resp BP Sys/Romero Pulse Ox Last 24 Hr 97.8 F-98.5 F 70-95 19-31 100-172/52-95 98-100 Exam: General: Appears awake and intubated, on weaning trial (T-Tube)with no apparent distress. HEENT: PERRL, normocephalic, atraumatic. Mucous membranes moist. No jaundice noted. Conjunctiva moist and clear, sclerae anicteric. Neck: No JVD, no thyromegaly or lymphadenopathy noted. Cardiac: Regular rate and rhythm. No murmur rub or gallop. Lungs: Essentially clear bilaterally to auscultation, spontaneous respirations per OETT connected to T-Tube. Abdomen: Soft, bowel sounds normoactive. Large, nontender and nondistended. No abdominal bruit or thrill noted. No masses noted. Musculoskeletal: No fluid collection. Decreased range of motion is noted, movement noted of all extremities. Extremities: No clubbing, cyanosis noted. No edema noted. Upper extremity pulses 2+. Lower extremity pulses 2+. Capillary refill less than 3 seconds. Skin: Warm and dry. No unusual lesions or rashes. Skin breakdown appreciated to right hand, and right ankle with dressing intact. Neuro: Awake, purposeful movements to command. Result/EKG - Labs CBC & BMP: 01/23/17 05:18 01/23/17 05:18 Lab Results: I have reviewed the past 24 hour labs Labs: Laboratory Results - last 24 hr 01/22/17 01/22/17 01/22/17 13:08 17:18 23:28 WBC RBC Hgb Hct MCV MCH MCHC RDW Plt Count MPV Neut % (Auto) Lymph % (Auto) [place] % (Auto) Eos % (Auto) Baso % (Auto) Neut # (Auto) Lymph # (Auto) [place] # (Auto) Eos # (Auto) Baso # (Auto) Immature Gran % Nucleated RBC % Immature Gran # Nucleated RBCs # Immature Plt Fraction ABG pH ABG pCO2 ABG pO2 ABG HCO3 ABG Total CO2 ABG O2 Saturation ABG Base Excess FiO2 Sodium Potassium Chloride Carbon Dioxide Anion Gap BUN Creatinine GFR Calculation BUN/Creatinine Ratio Glucose POC Glucose 326 H 289 H 264 H Calculated Osmolality Calcium Magnesium 01/23/17 01/23/17 01/23/17 05:17 05:18 05:18 WBC 10.6 RBC 4.26 Hgb 11.9 L Hct 37.3 MCV 87.6 MCH 28 MCHC 31.9 L RDW 14.3 Plt Count 181 MPV 11.5 Neut % (Auto) 70.2 Lymph % (Auto) 16.3 L [place] % (Auto) 10.9 Eos % (Auto) 1.7 Baso % (Auto) 0.1 Neut # (Auto) 7.4 Lymph # (Auto) 1.7 [place] # (Auto) 1.2 H Eos # (Auto) 0.2 Baso # (Auto) 0.0 Immature Gran % 0.8 Nucleated RBC % 0.0 Immature Gran # 0.09 Nucleated RBCs # 0.00 Immature Plt Fraction 0.0 ABG pH ABG pCO2 ABG pO2 ABG HCO3 ABG Total CO2 ABG O2 Saturation ABG Base Excess FiO2 Sodium 138 Potassium 3.9 Chloride 102 Carbon Dioxide 23 Anion Gap 16.9 H BUN 116 H D Creatinine 3.40 H GFR Calculation 15 BUN/Creatinine Ratio 34.00 H Glucose 231 H POC Glucose 234 H Calculated Osmolality 318.7 H Calcium 8.4 L Magnesium 2.2 01/23/17 01/23/17 05:18 07:04 WBC RBC Hgb Hct MCV MCH MCHC RDW Plt Count MPV Neut % (Auto) Lymph % (Auto) [place] % (Auto) Eos % (Auto) Baso % (Auto) Neut # (Auto) Lymph # (Auto) [place] # (Auto) Eos # (Auto) Baso # (Auto) Immature Gran % Nucleated RBC % Immature Gran # Nucleated RBCs # Immature Plt Fraction ABG pH 7.337 L ABG pCO2 46.5 ABG pO2 88.5 ABG HCO3 23.3 ABG Total CO2 22.3 L ABG O2 Saturation 96.2 ABG Base Excess -1.3 FiO2 40.00 Sodium 138 Potassium 3.9 Chloride 102 Carbon Dioxide 21 Anion Gap 18.9 H BUN 117 H Creatinine 3.40 H GFR Calculation 15 BUN/Creatinine Ratio 34.00 H Glucose 222 H POC Glucose Calculated Osmolality 318.7 H Calcium 8.3 L Magnesium - Diagnostic Findings Procedure: Chest x-ray: report reviewed by me - EKG EKG results: interpreted by me, sinus rhythm Chichi Dodd Attila, MD, personally performed the services described in this documentation, ascribed by Judi Summers NP in my presence, and it is both accurate and complete [id number] .
--- NOTE | 2017-01-23 14:05 | XRay Report ---
Portable chest Exam date: 01/23/2017 1:22 PM Indication: Line placement Comparison: Same date at 0250 hours Findings: Cardiomediastinal contours are stable. Interval extubation and insertion of right central venous catheter, uncomplicated. Esophageal gastric tube remains in satisfactory position. Increased central interstitial opacities. No acute osseous abnormalities. Visualized upper abdomen demonstrates no acute pathology. Impression: 1. Uncomplicated right central venous catheter placement 2. Interval extubation 3. Developing interstitial edema pattern PROCEDURE INTERPRETED AT [facility] DEPARTMENT OF RADIOLOGY Final Report Signed by: Tabatha Nicole MD
--- NOTE | 2017-01-23 14:13 | Ultrasound Report ---
US guide vascular access, IR cvc insert nt >5, Consult to Interventional Rad Central Line placement using fluoroscopic and ultrasound guidance Ultrasound of the right neck Clinical Information: Critically ill 70-year-old female with poor venous access, central line is requested. Physician[s]: Dr. Eastman Procedure: The patient was advised of the benefits, risks, and alternatives of the procedure and informed consent was obtained. A time out was performed with verification of the patient's name, MRN, site of procedure, and type of procedure to be performed. The patient was positioned in the supine position on the angiographic table. The site was prepped and draped in the usual sterile fashion. Local anesthesia only was used for the procedure. A director of exhibits radiograph reveals no relevant abnormality. The neck and anterior chest wall were anesthetized with lidocaine. The right internal jugular vein was accessed using a microintroducer needle via an anterior approach with ultrasound guidance. Ultrasound image capture of vascular access was obtained for the patient's permanent record. A 0.025 J wire was advanced into the superior vena cava, the needle was removed and a microintroducer sheath was placed. Wire position was confirmed with portable chest radiograph. An incision was made at the puncture site using a scalpel. The tract was serially dilated over the wire. A 7 [place] triple lumen 15 cm Arrow central venous catheter was placed with its tip at the cavoatrial junction. Tip position was confirmed with post procedural chest radiograph. The ports aspirate and flush freely. The catheter was sutured in place using 3-0 silk and covered with a sterile dressing. The patient tolerated the procedure well and was returned to the PRU in stable condition. EBL: < 5 mL. Complications: None. Total Fluoroscopy Time: 0 minutes. Conclusion: Successful placement of a triple lumen central venous catheter via the right internal jugular vein. The catheter is ready for immediate use. PROCEDURE INTERPRETED AT [facility] DEPARTMENT OF RADIOLOGY Final Report Signed by: Jaswinder Eastman
--- NOTE | 2017-01-23 16:33 | Post Interventional Procedure ---
Pre-op diagnosis: resp failure, renal failure, heart failure, alzheimers, parkinsons Post-op diagnosis: same Procedure: central venous catheter placement Contrast: none Flouroscopy: none Radiologist: Jaswinder Eastman Anesthesia: local Specimens: none sent Estimated blood loss: none Complications: none Condition: stable Description/Findings: right IJ 7 F triple lumen venous catheter placement done and ready for use. Assessment and Plan - Time spent with patient Time spent with patient: Less than 30 minutes
[2017-01-23] MEDS ORDERED: OXYMETAZOLINE 0.05% NASAL SPRAY 15 ML BOTTLE BOTH NARES PRN (19:00)
[2017-01-24] MEDS: ALBUTEROL/IPRATROPIUM 3 ML NEB RESP TX SCH ×4 (00:11→19:34)
[2017-01-24] MEDS: FUROSEMIDE 40 MG/5 ML UDCUP PER TUBE SCH ×4 (02:28→22:15)
[2017-01-24 03:31] LABS: ABG Base Excess 0.1 MMOL/L (-2.5-2.5); ABG HCO3 24.8 MMOL/L (20-26); ABG Oxygen Saturation 93.9 % (95-100); ABG PCO2 40.7 MM HG (35-48); ABG PH 7.403 (7.35-7.45); ABG PO2 69.2 MM HG (80-95); ABG TCO2 26.1 MMOL/L (23-27); Allen Test Positive
[2017-01-24] MEDS: ZINC OXIDE PASTE 113 GM TUBE TOP SCH ×3 (03:54→22:16)
[2017-01-24] MEDS: INSULIN LISPRO 100 UNIT/ML SUBCUT SCH ×3 (06:33→17:53)
[2017-01-24] MEDS: PROPOFOL 1,000 MG/100 ML BOTTLE IV SCH (06:57)
[2017-01-24 07:38] LABS: Calcium 8.3 MG/DL (8.5-10.1); Magnesium 2.3 MG/DL (1.8-2.4); Osmolality,Calculated 324.5 MOS/KG (273-304); Phosphorous 6.6 MG/DL (2.5-4.9); Potassium 3.4 MMOL/L (3.5-5.1); Prealbumin 26.6 MG/DL (20-40)
[2017-01-24] MEDS: INSULIN GLARGINE 100 UNIT/ML SUBCUT SCH ×2 (08:09→22:16)
[2017-01-24] MEDS: ASPIRIN EC 81 MG TABLET PO SCH (08:09)
[2017-01-24] MEDS: CARBIDOPA/LEVODOPA 25-100 MG TABLET PO SCH ×3 (08:09→22:15)
[2017-01-24] MEDS: ENOXAPARIN 30 MG/0.3 ML SYRINGE SUBCUT SCH (08:09)
[2017-01-24] MEDS: ISOSORBIDE MONONITRATE 30 MG TABLET PO SCH (08:09)
[2017-01-24] MEDS: CLOPIDOGREL 75 MG TABLET PO SCH (08:10)
[2017-01-24] MEDS: MUPIROCIN 2% OINT 22 GM TUBE TOP SCH ×2 (08:10→22:15)
[2017-01-24] MEDS: amLODIPine 5 MG TABLET PO SCH (08:10)
[2017-01-24] MEDS: RIVASTIGMINE 9.5 MG/24 HR PATCH TRANSDERM SCH (08:10)
[2017-01-24] MEDS: MULTIVITAMIN LIQUID (CENTRUM) 60 ML BOTTLE NG SCH (08:10)
[2017-01-24] MEDS: SENNA 8.6 MG TABLET PO PRN (08:10)
[2017-01-24] MEDS ORDERED: POTASSIUM CHLORIDE RIDER 10 MEQ in PREMIX 1 EACH IV PRN (08:19)
--- NOTE | 2017-01-24 08:19 | XRay Report ---
XR chest 1V portable Indication: Ventilator patient Comparison: 23 January 2017 Findings: The heart and mediastinum are stable in size and configuration. The lines and tubes are unchanged in position. The pulmonary vascularity is slightly improved. No lung infiltrates, effusions, pneumothorax or other abnormality is demonstrated. Impression: Mild improvement of the pulmonary vascularity. No other significant changes. PROCEDURE INTERPRETED AT [facility] DEPARTMENT OF RADIOLOGY Final Report Signed by: Dr. Petros Nagy
[2017-01-24] MEDS: CARVEDILOL 6.25 MG TABLET PO SCH ×3 (08:20→22:19)
--- NOTE | 2017-01-24 08:24 | Pulmonology Progress Note ---
Pulmonary - PN: Subj Interval history: This is a 71-year-old female whom I saw in pulmonary consultation on 01/19/2017. My impressions were. 1. Acute respiratory failure probably secondary to congestive heart failure but watch for other causes. Requiring intubation mechanical ventilation. Note the patient has a #6 tube 2. Past history of heart disease requiring stents 3. Chronic renal failure. Poor response to IV push Lasix. Mild hyperkalemia. 4 abnormal alkaline phosphate. Etiology undetermined 5. Parkinson's disease 6. Possible history of rheumatoid arthritis 7. Diabetes mellitus 8. High blood pressure 9. Hyperlipidemia 10. Gastroesophageal reflux disease 11. History of bilateral hip surgery. 12. See past history 01/20/2017. Today's chest x-ray is markedly better. Congestive heart failure is about 70-80% resolved and stable left-sided pleural effusion. Natruretic peptide is now 236. ABGs on FiO2 of 59% and mechanical ventilation shows a pH of 7.39, PCO2 31.5, PO2 166 and bicarb is 20.6. Nares are growing MRSA. Electrolytes are normal. Creatinine is 3.02 BUN is 66. White count 6900 Doppler venograms of the lower extremities. No evidence of deep venous thrombosis 01/22/2017. This patient is moving to stage IV of the weaning protocol and she looks good today. Tomorrow morning early when to put her on a T-tube and will recheck her blood gases several hours into this. Hopefully she will be ready for extubation. Chest x-ray shows a small amount of pleural effusion on the right. ABGs were stable. CBC stable. Electrolytes are normal. Creatinine is 3.3 with a BUN of 94. Natruretic peptide is dropped to 88. 01/23/2017. Patient was on a T-tube times several hours this morning she looks good and she is able to take deep breaths through the endotracheal tube. ABGs on FiO2 40% shows a pH 7.337, PCO2 46.5, PO2 88.5 and a bicarb of 23.3. Chest x-ray shows no heart failure no clear-cut infiltrates no pneumothorax. I will extubate her and will repeat her blood gases at 930 this morning and reevaluate her at that time. Electrolytes normal. Creatinine is 3.4 with a BUN of 117. White count is 10, 600 with 70 segs 16 lymphs and 11 monocytes. H&H 11.9/37.3. Microbiology shows a few yeast in the sputum and MRSA isolated from the nares 01/24/2017. Patient was extubated 01/23/2017. She has done very well since then. Today's chest x-ray shows cardiomegaly. There is no heart failure and there are no infiltrates. ABGs on 2 L/min shows a pH of 7.40, PCO2 40.7 PO2 69.2 and a bicarb of 24.8. Showed sodium is 139. Potassium is low at 3.4 and have ordered replacement. Creatinine is 3.3 with a BUN of 130. Glucoses are under fair control. There are no positive cultures other than the MRSA isolated from the patient's nares. From a pulmonary standpoint this patient is doing well. I will sign off. Please reconsult as needed Physical exam. Psychiatric. Alert oriented can follow commands and is cooperative Neurologic. Cranial nerves are intact. Moves all 4 extremities. Usually a little bit weak on the right as compared to the left. Face. Symmetrical. No edema lips or tongue Neck. Symmetrical no meningismus Lymphatics. No submandibular cervical supraclavicular or epitrochlear adenopathy Chest. Clear. No congestion. No wheeze Heart lateral PMI Abdomen nondistended Lower extremities no deep venous thrombophlebitis The remainder the physical exam is negative Plan. 01/19/2017. 1. Adjustments made to mechanical ventilation. Begin weaning protocol and physical therapy protocol 2. Output is poor will ask renal to see the patient 3. Doppler venograms of the lower extremities 4. Daily chest x-ray ABGs and lab been ordered 5. See orders. 6. Deep venous thrombophlebitis prevention protocol 7. Proton pump inhibitor protocol per 01/20/2017. 1. Continue weaning protocol 2. Congestive heart failure looks better 3. See today's note above. 01/22/2017. 1. Weaning protocol. T-tube trial tomorrow morning 2. Follow-up lab chest x-ray and ABG 01/23/2017 1. See today's note above. 2. Extubate 3. ABGs status report at 9:30 AM today 4. We will follow chest x-rays ABGs another day or 2 01/24/2017. 1. See today's note above. 2. Extubated 01/23/2017. 3. Chest x-ray and ABGs look good. Patient is in no respiratory distress. 4. Replace potassium 5. Chronic renal failure 6. Continue inhalation therapy and incentive spirometry 7. Pulmonary standpoint this patient is doing well. I will sign off. Reconsult if needed Exam (Progress Note) - Constitutional Vitals: Period Temp Pulse Resp BP Sys/Romero Pulse Ox Last 24 Hr 97.0 F-99.0 F 85-108 18-45 94-169/48-87 89-100 Results - Labs CBC & BMP: 01/23/17 05:18 01/24/17 06:45
--- NOTE | 2017-01-24 08:54 | Hospitalist Progress Note ---
Assessment and Plan (1) Acute respiratory failure Status: Acute Assessment and plan: due to CHF exacerbation with pulmonary edema.She is doing well on 2L [place] after extubation. She is stable enough to go to the floor. Current Visit: Yes (2) Acute on chronic systolic (congestive) heart failure Status: Acute Assessment and plan: on IV Lasix, EF 40-45% on 2D echo, she is diuresing well with Lasix, Cardiology is following. Current Visit: Yes (3) Acute on chronic renal failure Status: Acute Assessment and plan: Most likely due to bactrim competitive inhibition of creatinine secretion. Nephrology is following. Current Visit: Yes (4) Diabetes mellitus Status: Chronic Assessment and plan: HbA1c is 9.0. Continue current regime Current Visit: No Qualifiers: Diabetes mellitus type: type 2 (5) Hypertension Status: Chronic Assessment and plan: stable Current Visit: No Qualifiers: Hypertension type: essential hypertension Qualified Code(s): I10 - Essential (primary) hypertension (6) Hyperkalemia Status: Resolved Assessment and plan: will replete, bmp in am Current Visit: Yes (7) Coronary artery disease Status: Chronic Assessment and plan: She had previous stents to RCA and circumflex artery 10 years ago. No evidence of acute coronary syndrome, continue aspirin and Plavix. Mildly elevated troponin due to some supply demand mismatch and possibly RF. Cardiology is following. Current Visit: Yes (8) Parkinsons Status: Acute Assessment and plan: Stable on Sinemet Current Visit: No (9) Alzheimer disease Status: Chronic Assessment and plan: Stable on Exelon 9.5 mg/d patch Current Visit: No (10) History of stroke Status: Acute Assessment and plan: She was bedridden in a [facility]. DVT prophylaxis with Lovenox Current Visit: Yes (11) Dysphagia Status: Acute Assessment and plan: patient failed bedside swallowing study. We will consult speech and continue with TF for now. Current Visit: Yes Hospitalist: Subjective Interval history: Patient seen this am. She failed bedside swallowing study. She is now requiring less oxygen-using 2L [place] . She is stable enough to move to the floor. Exam - Constitutional Vitals: Period Temp Pulse Resp BP Sys/Romero Pulse Ox Last 24 Hr 97.0 F-99.0 F 85-108 22-45 99-169/48-87 89-100 General appearance: no acute distress - Head Head exam: Present: normal inspection - Respiratory Respiratory exam: Present: clear to auscultation bilaterally - Cardiovascular Cardiovascular exam: Present: regular rate and rhythm - GI/Abdominal GI/Abdominal exam: Present: normal bowel sounds - Neurological Exam Neurological exam: Present: alert Results - Labs CBC & BMP: 01/23/17 05:18 01/24/17 06:45 Lab Results: I have reviewed the past 24 hour labs
[2017-01-24] MEDS ORDERED: POTASSIUM CHLORIDE 20 MEQ TABLET PO ONE (09:00)
--- NOTE | 2017-01-24 09:03 | Cardiology Progress Note ---
Assessment and Plan (1) Acute on chronic renal failure Status: Acute Assessment and plan: IMPRESSION AND PLAN: -BRADYCARDIA - Resolved. This was likely due to severe metabolic and pulmonary issues, resolved. Continue Coreg for CAD. -VOLUME OVERLOAD -on high-dose p.o. Lasix at this time, managed by renal. Severe CKD. Pulmonary congestion improved -ICM - status post remote PCI. Continue aspirin, Plavix. No active bleeding issues. Not a candidate for NALINI inhibitor due to severe CKD. Continue Imdur/ hydralazine. -HTN -better controlled on current regimen. Current Visit: Yes (2) Diabetes mellitus Status: Chronic Assessment and plan: SEE PLAN LISTED BELOW Current Visit: No (3) Hypertension Status: Chronic Assessment and plan: SEE PLAN LISTED BELOW Current Visit: No Qualifiers: Qualified Code(s): I10 - Essential (primary) hypertension (4) Acute respiratory failure Status: Acute Assessment and plan: SEE PLAN LISTED BELOW Current Visit: Yes (5) Elevated troponin Status: Acute Assessment and plan: SEE PLAN LISTED BELOW Current Visit: Yes (6) Coronary artery disease Status: Chronic Assessment and plan: SEE PLAN LISTED BELOW Current Visit: Yes (7) Bradycardia Status: Resolved Assessment and plan: SEE PLAN LISTED BELOW Current Visit: Yes (8) Acidosis Status: Acute Assessment and plan: SEE PLAN LISTED BELOW Current Visit: Yes Cardiology - PN: Subj Interval history: She was extubated. Mental status still very poor. Bilateral lower extremity edema. No recurrence of bradycardia. Still on high-dose diuretic, creatinine 3.3. She is not answering to verbal commands. Exam (Progress Note) - Constitutional Vitals: Period Temp Pulse Resp BP Sys/Romero Pulse Ox Last 24 Hr 97.0 F-99.0 F 85-108 22-45 99-169/48-87 89-100 General appearance: no acute distress, morbidly obese - Head Head exam: Present: normal inspection. Absent: contusion - Eye Eye exam: Absent: periorbital swelling, scleral icterus Pupils: Absent: dilated - ENT ENT exam: Present: normal external ear exam - Neck Neck exam: Present: normal inspection - Respiratory Respiratory exam: Present: clear to auscultation bilaterally. Absent: rales - Cardiovascular Cardiovascular exam: Present: regular rate and rhythm. Absent: JVD, systolic murmur - GI/Abdominal GI/Abdominal exam: Present: hypoactive bowel sounds. Absent: distended - Extremities Exam Extremities exam: Present: normal inspection, normal capillary refill, edema (1+ ) - Back Exam Back exam: Present: normal inspection - Neurological Exam Neurological exam: Present: altered - Skin Skin exam: Present: normal color, warm. Absent: cyanosis Result/EKG - Labs CBC & BMP: 01/23/17 05:18 01/24/17 06:45 Lab Results: I have reviewed the past 24 hour labs Labs: Laboratory Results - last 24 hr 01/23/17 01/23/17 01/23/17 09:45 12:13 17:52 ABG pH 7.341 L ABG pCO2 45.8 ABG pO2 54.2 L ABG HCO3 23.1 ABG Total CO2 22.3 L ABG O2 Saturation 85.3 L ABG Base Excess -1.3 FiO2 40.00 Sodium Potassium Chloride Carbon Dioxide Anion Gap BUN Creatinine GFR Calculation BUN/Creatinine Ratio Glucose POC Glucose 217 H 242 H Calculated Osmolality Calcium Phosphorus Magnesium Prealbumin 01/23/17 01/24/17 01/24/17 23:27 03:17 06:05 ABG pH 7.403 ABG pCO2 40.7 ABG pO2 69.2 L ABG HCO3 24.8 ABG Total CO2 26.1 ABG O2 Saturation 93.9 L ABG Base Excess 0.1 FiO2 36.00 Sodium Potassium Chloride Carbon Dioxide Anion Gap BUN Creatinine GFR Calculation BUN/Creatinine Ratio Glucose POC Glucose 282 H 221 H Calculated Osmolality Calcium Phosphorus Magnesium Prealbumin 01/24/17 06:45 ABG pH ABG pCO2 ABG pO2 ABG HCO3 ABG Total CO2 ABG O2 Saturation ABG Base Excess FiO2 Sodium 139 Potassium 3.4 L Chloride 101 Carbon Dioxide 27 Anion Gap 14.4 BUN 130 H Creatinine 3.30 H GFR Calculation 15 BUN/Creatinine Ratio 39.00 H Glucose 201 H POC Glucose Calculated Osmolality 324.5 H Calcium 8.3 L Phosphorus 6.6 H Magnesium 2.3 Prealbumin 26.6 - EKG EKG results: interpreted by me
--- NOTE | 2017-01-24 13:23 | XRay Report ---
Portable chest Indication: Tube placement Comparison: Same date at 300 hours Findings: Cardiomediastinal contours are stable. Dobbhoff feeding tube in satisfactory position. Right central venous catheter is unchanged. There is again central interstitial opacities that extend into the left lung base, unchanged. No acute osseous abnormalities. Visualized upper abdomen demonstrates no acute pathology. Impression: Satisfactory Dobbhoff tube placement PROCEDURE INTERPRETED AT [facility] DEPARTMENT OF RADIOLOGY Final Report Signed by: Tabatha Nicole MD
--- NOTE | 2017-01-24 18:04 | Nephrology Progress Note ---
Nephrology - PN: Subj Interval history: Patient is resting. Remains ventilated but no acute changes. Blood pressures been adjusted. Serum potassium is stable at 4.4. Serum creatinine is noted to be 3.0. Urine output has picked up. No fevers or chills. 01/21/2017. The patient is resting comfortably. More awake and alert. Serum creatinine is 2.9. 01/22/2017. The patient is resting comfortably. She is continue with only weaning trials. Serum creatinine is noted to be 3.3. Continue to monitor for renal recovery. 01/23/2017. The patient is resting comfortably. She is now off the ventilator. She has been hemodynamically stable. 01/24/2017. Patient sitting up in bed visiting with family. She appears in no acute distress. Serum creatinine is 3.3 which is stable from yesterday. Further interview with family states that patient's serum creatinine is usually at a level of 3. Exam (PN)-Nephrology - Vital Signs Vital signs: Period Temp Pulse Resp BP Sys/Romero Pulse Ox Last 24 Hr 97.0 F-99.0 F 86-108 18-45 103-159/53-84 88-97 - General Appearance General appearance: well-developed, well-nourished Neck: supple Respiratory: clear Cardiology: regular rate, regular rhythm Gastrointestinal: normoactive bowel sounds, no tenderness, no guarding Musculoskeletal: no clubbing Psychiatric: mood/affect appropriate - Lab 01/23/17 05:18 01/24/17 06:45 Most recent lab results ABG pH 7.403 (7.35-7.45) 01/24/17 03:17 ABG pCO2 40.7 MM HG (35-48) 01/24/17 03:17 ABG pO2 69.2 MM HG (80-95) L 01/24/17 03:17 ABG HCO3 24.8 MMOL/L (20-26) 01/24/17 03:17 ABG O2 Saturation 93.9 % (95-100) L 01/24/17 03:17 Calcium 8.3 MG/DL (8.5-10.1) L 01/24/17 06:45 Phosphorus 6.6 MG/DL (2.5-4.9) H 01/24/17 06:45 Magnesium 2.3 MG/DL (1.8-2.4) 01/24/17 06:45 Assessment and Plan (1) Acute renal failure Status: Acute Assessment and plan: Chronic kidney disease. Continue to follow renal function with BMP. Current Visit: No (2) Elevated serum creatinine Problem details: Most likely due to bactrim competitive inhibition of creatinine secretion. Improved. Status: Acute Assessment and plan: Serum creatinine 3.3. Daily BMP. Current Visit: No (3) Hypertension Status: Chronic Current Visit: No Qualifiers: Hypertension type: essential hypertension Qualified Code(s): I10 - Essential (primary) hypertension (4) Respiratory distress Status: Resolved Assessment and plan: On ventilator. Current Visit: Yes (5) Hyperkalemia Status: Resolved Assessment and plan: Resolved Current Visit: Yes
[2017-01-25] MEDS: ALBUTEROL/IPRATROPIUM 3 ML NEB RESP TX SCH ×4 (00:11→19:01)
[2017-01-25] MEDS: FUROSEMIDE 40 MG/5 ML UDCUP PER TUBE SCH ×4 (02:35→20:30)
[2017-01-25] MEDS: INSULIN LISPRO 100 UNIT/ML SUBCUT SCH ×4 (02:35→17:15)
[2017-01-25 03:36] LABS: Basophils % 0.1 % (0.0-0.8); Eosinophils # 0.2 10*3/uL (0.0-0.87); Eosinophils % 2.1 % (0.00-10.9); Hematocrit 33.2 VOL% (35.7-47.0); Hemoglobin 10.7 GM/DL (12.0-16.0); Immature Granulocytes % 1.6 %; Immature Granulocytes Absolute 0.13 #; Lymphocytes % 12.7 % (21.3-54.2); Mean Corpuscular HGB Conc 32.2 GM/DL (32-36); Mean Corpuscular Hemoglobin 28 PG (27-34); Mean Corpuscular Volume 87.1 FL (87-102); Mean Platelet Volume 12.1 FL (9.6-12.0); Monocytes # 0.8 10*3/uL (0.11-0.8); Neutrophils % 73.5 % (38.7-73.9); Platelet Count 205 T/CUMM (130-400); Red Blood Count 3.81 MC/CUMM (3.8-5.5); Red Cell Distribution Width 14.1 % (9.3-17.3); White Blood Count 8.1 T/CUMM (4-12)
[2017-01-25 04:11] LABS: ABG Base Excess 0.1 MMOL/L (-2.5-2.5); ABG HCO3 24.3 MMOL/L (20-26); ABG PCO2 41.7 MM HG (35-48); ABG PH 7.388 (7.35-7.45); ABG PO2 51.8 MM HG (80-95); ABG TCO2 22.7 MMOL/L (23-27); Allen Test Positive
[2017-01-25 04:14] LABS: Osmolality,Calculated 329.7 MOS/KG (273-304); Potassium 4.2 MMOL/L (3.5-5.1)
[2017-01-25] MEDS: ENOXAPARIN 30 MG/0.3 ML SYRINGE SUBCUT SCH (09:34)
[2017-01-25] MEDS: INSULIN GLARGINE 100 UNIT/ML SUBCUT SCH ×2 (09:34→22:01)
[2017-01-25] MEDS: MULTIVITAMIN LIQUID (CENTRUM) 60 ML BOTTLE NG SCH (09:34)
[2017-01-25] MEDS: CARBIDOPA/LEVODOPA 25-100 MG TABLET PO SCH ×3 (09:34→20:30)
[2017-01-25] MEDS: ISOSORBIDE MONONITRATE 30 MG TABLET PO SCH (09:34)
[2017-01-25] MEDS: CARVEDILOL 6.25 MG TABLET PO SCH ×2 (09:34→20:30)
[2017-01-25] MEDS: amLODIPine 5 MG TABLET PO SCH (09:34)
[2017-01-25] MEDS: CLOPIDOGREL 75 MG TABLET PO SCH (09:34)
[2017-01-25] MEDS: MUPIROCIN 2% OINT 22 GM TUBE TOP SCH ×2 (09:34→20:30)
[2017-01-25] MEDS: ASPIRIN EC 81 MG TABLET PO SCH (09:34)
[2017-01-25] MEDS: ZINC OXIDE PASTE 113 GM TUBE TOP SCH ×2 (09:35→20:31)
[2017-01-25] MEDS: RIVASTIGMINE 9.5 MG/24 HR PATCH TRANSDERM SCH (09:36)
--- NOTE | 2017-01-25 11:26 | Nephrology Progress Note ---
Nephrology - PN: Subj Interval history: Patient denies shortness of breath. Review of systems GI she denies nausea or vomiting Physical exam general the patient is chronically ill-appearing, she has no pitting edema, her lungs reveal some rales and rhonchi in the right lower lobe posteriorly, she has a congested sounding cough heard without the stethoscope Assessment/plan 1. Chronic kidney disease stage IV-patient's creatinine is 3.4 mg/dL this is increased from 3.3 mg/dL yesterday for overall her kidney function is somewhat stable over the past few days 2. Congestive heart failure-patient was extubated a few days ago, she seems to be breathing okay although she does have some upper airway congestion, patient is on Lasix 80 mg p.o. 4 times a day, her weight is down about 2 kg's from yesterday I am not sure how accurate this is however her weight trend has been downward since her admission. 3. Diabetes mellitus 4. Hypertension this is controlled Exam (PN)-Nephrology - Vital Signs Vital signs: Period Temp Pulse Resp BP Sys/Romero Pulse Ox Last 24 Hr 97.5 F-98.8 F 91-106 18-33 116-159/38-74 88-96 - Lab 01/25/17 02:08 01/25/17 02:08 Most recent lab results ABG pH 7.388 (7.35-7.45) 01/25/17 04:05 ABG pCO2 41.7 MM HG (35-48) 01/25/17 04:05 ABG pO2 51.8 MM HG (80-95) L 01/25/17 04:05 ABG HCO3 24.3 MMOL/L (20-26) 01/25/17 04:05 ABG O2 Saturation 85.0 % (95-100) L 01/25/17 04:05 Calcium 8.0 MG/DL (8.5-10.1) L 01/25/17 02:08 Phosphorus 6.6 MG/DL (2.5-4.9) H 01/24/17 06:45 Magnesium 2.3 MG/DL (1.8-2.4) 01/24/17 06:45
--- NOTE | 2017-01-25 12:48 | Cardiology Progress Note ---
Assessment and Plan - Time spent with patient Time spent with patient: Greater than 30 minutes (1) Ischemic cardiomyopathy Status: Acute Assessment and plan: See plan of CARE listed below Current Visit: Yes (2) Hypertension Status: Chronic Assessment and plan: See plan of CARE listed below Current Visit: Yes (3) Chronic kidney disease (CKD) Status: Chronic Assessment and plan: See plan of CARE listed below Current Visit: Yes (4) Coronary artery disease Status: Chronic Assessment and plan: See plan of CARE listed below Current Visit: Yes (5) Acute on chronic diastolic CHF (congestive heart failure), NYHA class 2 Status: Acute Assessment and plan: See plan of CARE listed below Current Visit: Yes Cardiology - PN: Subj Interval history: RELEASE AND TECHNICAL RECORDS CLERK: Dr. Camp (new) SUMMARY: Pt. intubated and sedated, seen in ICU. Ms. Wood 71-year-old female, was followed by Dr. Kaufman in the past. Admitted January 19, 2017 with with acute kidney injury, hyperkalemia, respiratory insufficiency, severe hypertension, junctional bradycardia. Elevated cardiac biomarkers, without major report changes, suggestive of demand ischemia. Cardiomyopathy with ejection fraction around 40-45%. Currently weaned off Dopamine infusion. PMH: Dementia, type 2 diabetes mellitus, morbid obesity. Last heart catheterization was 2007 with widely patent stents in mild to moderate coronary disease present. In recent hospitalization, she was not seen by [facility]. JANUARY 22, 2017: The patient was seen today in ICU, she continues to be intubated and sedated. Vital signs stable, with improvement in blood pressure control. ABGs noted, respiratory function stable on vent, patient continues with weaning trial. No significant change in chest xray, left pleural effusion. Hemoglobin and hematocrit stable. Chronic renal failure with creatinine worse today at 3.3, BUN 94. BNP 88. History of CAD which is stable, chronic diabetes poorly controlled, chronic renal failure all being monitored. JANUARY 23, 2017: The patient was seen today in ICU, she is intubated and on T-tube trial this morning. She is awake and alert, follows simple commands. Moves bilateral upper extremities to command. Blood pressures on the high side of normal, sinus rhythm on telemetry monitoring without further episodes of bradycardia noted. Labs reviewed. Continue monitoring chronic CAD, diabetes, and renal failure. CAD, hypertension, dysrhythmia are chronic and stable. January 25, 2017: She is doing well this morning. She was extubated successfully on the fourth. Denies chest pain heaviness or tightness. She is breathing without difficulty she reports. Her vital signs are stable and there are no arrhythmias. At this point, recommend continuing aspirin and Plavix. Cardiology will sign off. ROS: Cardiovascular: Denies chest pain, heaviness, tightness Pulmonary: Denies shortness of breath, orthopnea or PND Gastrointestinal: Denies abdominal pain, nausea or vomiting IMPRESSION AND PLAN: -BRADYCARDIA -resolved. In fact, heart rates in the 90s. Can increase Coreg as needed. -CHF, acute on chronic - secondary to diastolic dysfunction. NYHA class II. Continue beta-candis. Using hydralazine and Imdur combination. Unable to utilize NALINI inhibitor for fear of worsening renal insufficiency -ICM - status post remote PCI. Continue aspirin, Plavix. No active bleeding issues. -RENAL FAILURE - Continue to monitor renal function. Hold NALINI inhibitor. -HTN - Continue hydralazine, Imdur 30 mg daily, Norvasc, beta candis. Exam (Progress Note) - Constitutional Vitals: Period Temp Pulse Resp BP Sys/Romero Pulse Ox Last 24 Hr 97.6 F-98.8 F 91-106 18-32 116-159/38-74 91-96 Exam: Exam: General: Awake, ill-appearing female. Pleasant cooperative HEENT: PERRL, normocephalic, atraumatic. Mucous membranes moist. No jaundice noted. Conjunctiva moist and clear, sclerae anicteric. Neck: No JVD, no thyromegaly or lymphadenopathy noted. Cardiac: Regular rate and rhythm. No murmur rub or gallop. Lungs: Lungs are relatively clear. Not tachypneic Abdomen: Soft, bowel sounds normoactive. Large, nontender and nondistended. No abdominal bruit or thrill noted. No masses noted. Musculoskeletal: No fluid collection. Decreased range of motion is noted, movement noted of all extremities. Extremities: No clubbing, cyanosis noted. No edema noted. Upper extremity pulses 2+. Lower extremity pulses 2+. Capillary refill less than 3 seconds. Skin: Warm and dry. No unusual lesions or rashes. Skin breakdown appreciated to right hand, and right ankle with dressing intact. Neuro: Awake, purposeful movements to command. Result/EKG - Labs CBC & BMP: 01/25/17 02:08 01/25/17 02:08 Lab Results: I have reviewed the past 24 hour labs Labs: Laboratory Results - last 24 hr 01/24/17 01/25/17 01/25/17 17:47 00:06 02:08 WBC 8.1 RBC 3.81 Hgb 10.7 L Hct 33.2 L MCV 87.1 MCH 28 MCHC 32.2 RDW 14.1 Plt Count 205 MPV 12.1 H Neut % (Auto) 73.5 Lymph % (Auto) 12.7 L Gage % (Auto) 10.0 Eos % (Auto) 2.1 Baso % (Auto) 0.1 Neut # (Auto) 6.0 Lymph # (Auto) 1.0 L Gage # (Auto) 0.8 Eos # (Auto) 0.2 Baso # (Auto) 0.0 Immature Gran % 1.6 Nucleated RBC % 0.0 Immature Gran # 0.13 Nucleated RBCs # 0.00 Immature Plt Fraction 0.0 ABG pH ABG pCO2 ABG pO2 ABG HCO3 ABG Total CO2 ABG O2 Saturation ABG Base Excess FiO2 Sodium Potassium Chloride Carbon Dioxide Anion Gap BUN Creatinine GFR Calculation BUN/Creatinine Ratio Glucose POC Glucose 265 H 334 H Calculated Osmolality Calcium 01/25/17 01/25/17 01/25/17 02:08 04:05 06:56 WBC RBC Hgb Hct MCV MCH MCHC RDW Plt Count MPV Neut % (Auto) Lymph % (Auto) Gage % (Auto) Eos % (Auto) Baso % (Auto) Neut # (Auto) Lymph # (Auto) Gage # (Auto) Eos # (Auto) Baso # (Auto) Immature Gran % Nucleated RBC % Immature Gran # Nucleated RBCs # Immature Plt Fraction ABG pH 7.388 ABG pCO2 41.7 ABG pO2 51.8 L ABG HCO3 24.3 ABG Total CO2 22.7 L ABG O2 Saturation 85.0 L ABG Base Excess 0.1 FiO2 36.00 Sodium 138 Potassium 4.2 Chloride 98 Carbon Dioxide 25 Anion Gap 19.2 H BUN 147 H D Creatinine 3.40 H GFR Calculation 14 BUN/Creatinine Ratio 43.00 H Glucose 231 H POC Glucose 90 Calculated Osmolality 329.7 H Calcium 8.0 L 01/25/17 11:24 WBC RBC Hgb Hct MCV MCH MCHC RDW Plt Count MPV Neut % (Auto) Lymph % (Auto) Gage % (Auto) Eos % (Auto) Baso % (Auto) Neut # (Auto) Lymph # (Auto) Gage # (Auto) Eos # (Auto) Baso # (Auto) Immature Gran % Nucleated RBC % Immature Gran # Nucleated RBCs # Immature Plt Fraction ABG pH ABG pCO2 ABG pO2 ABG HCO3 ABG Total CO2 ABG O2 Saturation ABG Base Excess FiO2 Sodium Potassium Chloride Carbon Dioxide Anion Gap BUN Creatinine GFR Calculation BUN/Creatinine Ratio Glucose POC Glucose 324 H Calculated Osmolality Calcium - Diagnostic Findings Procedure: Chest x-ray: report reviewed by me - EKG EKG results: interpreted by me EKG shows: sinus rhythm
--- NOTE | 2017-01-25 16:48 | Hospitalist Progress Note ---
Assessment and Plan (1) Acute respiratory failure Status: Acute Assessment and plan: due to CHF exacerbation with pulmonary edema.She is doing well on 2L Nc Current Visit: Yes (2) Acute on chronic systolic (congestive) heart failure Status: Acute Assessment and plan: on IV Lasix, EF 40-45% on 2D echo, she is diuresing well with Lasix, Cardiology is following. Current Visit: Yes (3) Acute on chronic renal failure Status: Acute Assessment and plan: Most likely due to bactrim competitive inhibition of creatinine secretion. Nephrology is following. Current Visit: Yes (4) Diabetes mellitus Status: Chronic Assessment and plan: HbA1c is 9.0. Poorly controlled Plan Start Lantus 15units qhs, follow response Current Visit: No Qualifiers: Diabetes mellitus type: type 2 (5) Hypertension Status: Chronic Assessment and plan: stable Current Visit: No Qualifiers: Hypertension type: essential hypertension Qualified Code(s): I10 - Essential (primary) hypertension (6) Coronary artery disease Status: Chronic Assessment and plan: She had previous stents to RCA and circumflex artery 10 years ago. No evidence of acute coronary syndrome, continue aspirin and Plavix. Mildly elevated troponin due to some supply demand mismatch and possibly RF. Cardiology is following. Current Visit: Yes (7) Parkinsons Status: Acute Assessment and plan: Stable on Sinemet Current Visit: No (8) Alzheimer disease Status: Chronic Assessment and plan: Stable on Exelon 9.5 mg/d patch Current Visit: No (9) History of stroke Status: Acute Assessment and plan: She was bedridden in a long-term. DVT prophylaxis with Lovenox Current Visit: Yes (10) Dysphagia Status: Acute Assessment and plan: patient failed bedside swallowing study.Follow speech therapy's recommendations. Current Visit: Yes Hospitalist: Subjective Interval history: Patient seen, she is doing better, no new complaints. Exam - Constitutional Vitals: Period Temp Pulse Resp BP Sys/Romero Pulse Ox Last 24 Hr 97.6 F-98.8 F 91-106 18-32 116-144/38-69 91-96 General appearance: no acute distress, over weight - Head Head exam: Present: normal inspection - Respiratory Respiratory exam: Present: decreased breath sounds - Cardiovascular Cardiovascular exam: Present: regular rate and rhythm - GI/Abdominal GI/Abdominal exam: Present: normal bowel sounds - Extremities Exam Extremities exam: Present: normal inspection - Neurological Exam Neurological exam: Present: alert, oriented X3 Results - Labs CBC & BMP: 01/25/17 02:08 01/25/17 02:08 Lab Results: I have reviewed the past 24 hour labs
[2017-01-25] MEDS ORDERED: INSULIN GLARGINE 100 UNIT/ML SUBCUT SCH (21:00)
[2017-01-26] MEDS: ALBUTEROL/IPRATROPIUM 3 ML NEB RESP TX SCH ×4 (01:24→19:14)
[2017-01-26] MEDS: INSULIN LISPRO 100 UNIT/ML SUBCUT SCH ×4 (03:22→18:23)
[2017-01-26] MEDS: FUROSEMIDE 40 MG/5 ML UDCUP PER TUBE SCH ×4 (03:23→21:57)
[2017-01-26 03:45] LABS: Allen Test Positive
[2017-01-26 03:46] LABS: ABG Base Excess -1.8 MMOL/L (-2.5-2.5); ABG HCO3 22.9 MMOL/L (20-26); ABG Oxygen Saturation 98.1 % (95-100); ABG PCO2 42.2 MM HG (35-48); ABG PH 7.357 (7.35-7.45); ABG TCO2 21.4 MMOL/L (23-27)
[2017-01-26] MEDS: CLOPIDOGREL 75 MG TABLET PO SCH (09:01)
[2017-01-26] MEDS: ASPIRIN EC 81 MG TABLET PO SCH (09:01)
[2017-01-26] MEDS: ENOXAPARIN 30 MG/0.3 ML SYRINGE SUBCUT SCH (09:01)
[2017-01-26] MEDS: amLODIPine 5 MG TABLET PO SCH ×2 (09:01→09:21)
[2017-01-26] MEDS: CARBIDOPA/LEVODOPA 25-100 MG TABLET PO SCH ×3 (09:02→21:59)
[2017-01-26] MEDS: ISOSORBIDE MONONITRATE 30 MG TABLET PO SCH (09:02)
[2017-01-26] MEDS: CARVEDILOL 6.25 MG TABLET PO SCH ×2 (09:02→21:59)
[2017-01-26] MEDS: ZINC OXIDE PASTE 113 GM TUBE TOP SCH ×2 (09:02→21:59)
[2017-01-26] MEDS: INSULIN GLARGINE 100 UNIT/ML SUBCUT SCH ×2 (09:02→21:58)
[2017-01-26] MEDS: MUPIROCIN 2% OINT 22 GM TUBE TOP SCH ×2 (09:02→21:59)
[2017-01-26] MEDS: RIVASTIGMINE 9.5 MG/24 HR PATCH TRANSDERM SCH (09:08)
[2017-01-26] MEDS: MULTIVITAMIN LIQUID (CENTRUM) 60 ML BOTTLE NG SCH (09:08)
--- NOTE | 2017-01-26 12:01 | Nephrology Progress Note ---
Nephrology - PN: Subj Interval history: She is awake and alert. She denies shortness of breath. Family states she appears stronger Exam (PN)-Nephrology - Vital Signs Vital signs: Period Temp Pulse Resp BP Sys/Romero Pulse Ox Last 24 Hr 97.8 F-99.3 F 82-103 16-20 105-124/52-68 93-99 Exam: Gen.: Alert and oriented x3. ENT: Pupils equal round reactive to light. EOMs intact. Mucous membranes moist. Neck: Supple. No JVD or bruit. Cardiovascular: Regular rate and rhythm. No murmur rub or gallop Lungs: Clear Abdomen: Soft. Nontender. Positive bowel sounds. No organomegaly Extremities: No edema - Lab 01/25/17 02:08 01/25/17 02:08 Most recent lab results ABG pH 7.357 (7.35-7.45) 01/26/17 03:38 ABG pCO2 42.2 MM HG (35-48) 01/26/17 03:38 ABG pO2 114.0 MM HG (80-95) H 01/26/17 03:38 ABG HCO3 22.9 MMOL/L (20-26) 01/26/17 03:38 ABG O2 Saturation 98.1 % (95-100) 01/26/17 03:38 Calcium 8.0 MG/DL (8.5-10.1) L 01/25/17 02:08 Phosphorus 6.6 MG/DL (2.5-4.9) H 01/24/17 06:45 Magnesium 2.3 MG/DL (1.8-2.4) 01/24/17 06:45 Assessment and Plan (1) Acute on chronic renal failure Status: Acute Assessment and plan: 71-year-old woman with: * CRF 4. Creatinine was stable at 3.4 yesterday. No lab today. Weight has decreased. BMP tomorrow * CHF. Compensated * Hypertension * Diabetes mellitus * Cerebrovascular disease Current Visit: Yes (2) History of stroke Status: Acute Current Visit: Yes (3) Ischemic cardiomyopathy Status: Acute Current Visit: Yes (4) Hypertension Status: Chronic Current Visit: Yes (5) Diabetes mellitus Status: Chronic Current Visit: No Qualifiers: Diabetes mellitus type: type 2
--- NOTE | 2017-01-26 12:29 | Hospitalist Progress Note ---
Assessment and Plan (1) Acute respiratory failure Status: Acute Assessment and plan: due to CHF exacerbation with pulmonary edema.She is doing well on 2L Nc Current Visit: Yes (2) Acute on chronic systolic (congestive) heart failure Status: Acute Assessment and plan: on IV Lasix, EF 40-45% on 2D echo, she is diuresing well with Lasix, Cardiology is following. Current Visit: Yes (3) Acute on chronic renal failure Status: Acute Assessment and plan: Most likely due to bactrim competitive inhibition of creatinine secretion. Nephrology is following. Current Visit: Yes (4) Diabetes mellitus Status: Chronic Assessment and plan: HbA1c is 9.0. Improving. Plan Will increase Lantus to 45mg bid, follow response Current Visit: No Qualifiers: Diabetes mellitus type: type 2 (5) Hypertension Status: Chronic Assessment and plan: stable Current Visit: No Qualifiers: Hypertension type: essential hypertension Qualified Code(s): I10 - Essential (primary) hypertension (6) Coronary artery disease Status: Chronic Assessment and plan: She had previous stents to RCA and circumflex artery 10 years ago. No evidence of acute coronary syndrome, continue aspirin and Plavix. Mildly elevated troponin due to some supply demand mismatch and possibly RF. Cardiology is following. Current Visit: Yes (7) Parkinsons Status: Acute Assessment and plan: Stable on Sinemet Current Visit: No (8) Alzheimer disease Status: Chronic Assessment and plan: Stable on Exelon 9.5 mg/d patch Current Visit: No (9) History of stroke Status: Acute Assessment and plan: She was bedridden in a skilled nursing. DVT prophylaxis with Lovenox Current Visit: Yes (10) Dysphagia Status: Acute Assessment and plan: Speech therapy is following. patient is doing well on thickened liquids plus pureed diet Current Visit: Yes Hospitalist: Subjective Interval history: Patient ate her pureed breakfast well. Family members were present in the room and were happy about progress. [place] if she continues to improve. Exam - Constitutional Vitals: Period Temp Pulse Resp BP Sys/Romero Pulse Ox Last 24 Hr 97.8 F-99.3 F 82-103 16-20 105-126/52-68 93-99 General appearance: no acute distress - Head Head exam: Present: normal inspection - Respiratory Respiratory exam: Present: clear to auscultation bilaterally - Cardiovascular Cardiovascular exam: Present: regular rate and rhythm - GI/Abdominal GI/Abdominal exam: Present: normal bowel sounds - Neurological Exam Neurological exam: Present: oriented X3 Results - Labs CBC & BMP: 01/25/17 02:08 01/25/17 02:08 Lab Results: I have reviewed the past 24 hour labs
[2017-01-27] MEDS: ALBUTEROL/IPRATROPIUM 3 ML NEB RESP TX SCH ×4 (00:34→19:49)
[2017-01-27] MEDS: INSULIN LISPRO 100 UNIT/ML SUBCUT SCH ×4 (01:25→18:49)
[2017-01-27] MEDS: FUROSEMIDE 40 MG/5 ML UDCUP PER TUBE SCH ×4 (02:44→22:20)
[2017-01-27 06:57] LABS: Calcium 8.1 MG/DL (8.5-10.1); Osmolality,Calculated 333.5 MOS/KG (273-304); Potassium 4.1 MMOL/L (3.5-5.1)
[2017-01-27] MEDS: ISOSORBIDE MONONITRATE 30 MG TABLET PO SCH (07:59)
[2017-01-27] MEDS: CLOPIDOGREL 75 MG TABLET PO SCH (07:59)
[2017-01-27] MEDS: ASPIRIN EC 81 MG TABLET PO SCH (07:59)
[2017-01-27] MEDS: CARVEDILOL 6.25 MG TABLET PO SCH ×2 (07:59→22:20)
[2017-01-27] MEDS: MUPIROCIN 2% OINT 22 GM TUBE TOP SCH ×2 (07:59→22:20)
[2017-01-27] MEDS: RIVASTIGMINE 9.5 MG/24 HR PATCH TRANSDERM SCH (07:59)
[2017-01-27] MEDS: INSULIN GLARGINE 100 UNIT/ML SUBCUT SCH ×2 (07:59→22:19)
[2017-01-27] MEDS: ENOXAPARIN 30 MG/0.3 ML SYRINGE SUBCUT SCH (07:59)
[2017-01-27] MEDS: CARBIDOPA/LEVODOPA 25-100 MG TABLET PO SCH ×3 (07:59→22:20)
[2017-01-27] MEDS: amLODIPine 5 MG TABLET PO SCH (08:00)
[2017-01-27] MEDS: MULTIVITAMIN LIQUID (CENTRUM) 60 ML BOTTLE NG SCH (08:00)
[2017-01-27] MEDS: ZINC OXIDE PASTE 113 GM TUBE TOP SCH ×2 (08:01→22:20)
--- NOTE | 2017-01-27 11:47 | Hospitalist Progress Note ---
Assessment and Plan (1) Acute respiratory failure Status: Acute Assessment and plan: due to CHF exacerbation with pulmonary edema.She is doing well on 2L Nc Current Visit: Yes (2) Acute on chronic systolic (congestive) heart failure Status: Acute Assessment and plan: on IV Lasix, EF 40-45% on 2D echo, she is diuresing well with Lasix, Cardiology is following. Current Visit: Yes (3) Acute on chronic renal failure Status: Acute Assessment and plan: Most likely due to bactrim competitive inhibition of creatinine secretion. Nephrology is following. Current Visit: Yes (4) Diabetes mellitus Status: Chronic Assessment and plan: HbA1c is 9.0. Improving. Plan stable, continue current regime Current Visit: No Qualifiers: Diabetes mellitus type: type 2 (5) Hypertension Status: Chronic Assessment and plan: stable Current Visit: No Qualifiers: Hypertension type: essential hypertension Qualified Code(s): I10 - Essential (primary) hypertension (6) Coronary artery disease Status: Chronic Assessment and plan: She had previous stents to RCA and circumflex artery 10 years ago. No evidence of acute coronary syndrome, continue aspirin and Plavix. Mildly elevated troponin due to some supply demand mismatch and possibly RF. Cardiology is following. Current Visit: Yes (7) Parkinsons Status: Acute Assessment and plan: Stable on Sinemet Current Visit: No (8) Alzheimer disease Status: Chronic Assessment and plan: Stable on Exelon 9.5 mg/d patch Current Visit: No (9) History of stroke Status: Acute Assessment and plan: [facility]. DVT prophylaxis with Lovenox Current Visit: Yes (10) Dysphagia Status: Acute Assessment and plan: Speech therapy is following. patient is doing well on thickened liquids plus pureed diet Current Visit: Yes Hospitalist: Subjective Interval history: Patient was sleeping peacefully, no new complaints. She will hopefully dc to the [facility]. Exam - Constitutional Vitals: Period Temp Pulse Resp BP Sys/Romero Pulse Ox Last 24 Hr 96.4 F-99.3 F 84-94 16-21 116-134/56-75 92-99 General appearance: no acute distress - Head Head exam: Present: normal inspection - Respiratory Respiratory exam: Present: clear to auscultation bilaterally - Cardiovascular Cardiovascular exam: Present: regular rate and rhythm - GI/Abdominal GI/Abdominal exam: Present: normal bowel sounds - Extremities Exam Extremities exam: Present: normal inspection Results - Labs CBC & BMP: 01/25/17 02:08 01/27/17 05:52 Lab Results: I have reviewed the past 24 hour labs
--- NOTE | 2017-01-27 11:48 | Nephrology Progress Note ---
Nephrology - PN: Subj Interval history: She is lethargic but arousable. She denies shortness of breath. Exam (PN)-Nephrology - Vital Signs Vital signs: Period Temp Pulse Resp BP Sys/Romero Pulse Ox Last 24 Hr 96.4 F-99.3 F 84-94 16-21 116-134/56-75 92-99 Exam: ENT: Normal Cardiovascular: Regular rate and rhythm. No murmur rub or gallop Lungs: Clear Extremities: No edema - Lab 01/25/17 02:08 01/27/17 05:52 Most recent lab results ABG pH 7.357 (7.35-7.45) 01/26/17 03:38 ABG pCO2 42.2 MM HG (35-48) 01/26/17 03:38 ABG pO2 114.0 MM HG (80-95) H 01/26/17 03:38 ABG HCO3 22.9 MMOL/L (20-26) 01/26/17 03:38 ABG O2 Saturation 98.1 % (95-100) 01/26/17 03:38 Calcium 8.1 MG/DL (8.5-10.1) L 01/27/17 05:52 Phosphorus 6.6 MG/DL (2.5-4.9) H 01/24/17 06:45 Magnesium 2.3 MG/DL (1.8-2.4) 01/24/17 06:45 Assessment and Plan (1) Acute on chronic renal failure Status: Acute Assessment and plan: 71-year-old woman with: * CRF 4. Creatinine stable at 3.5. BUN is higher. Lasix decreased to 3 times daily * CHF. Compensated * Hypertension * Diabetes mellitus * Cerebrovascular disease Current Visit: Yes (2) History of stroke Status: Acute Current Visit: Yes (3) Ischemic cardiomyopathy Status: Acute Current Visit: Yes (4) Hypertension Status: Chronic Current Visit: Yes (5) Diabetes mellitus Status: Chronic Current Visit: No
[2017-01-28] MEDS: ALBUTEROL/IPRATROPIUM 3 ML NEB RESP TX SCH ×2 (00:39→07:41)
[2017-01-28] MEDS: INSULIN LISPRO 100 UNIT/ML SUBCUT SCH ×2 (00:45→05:58)
[2017-01-28] MEDS: FUROSEMIDE 40 MG/5 ML UDCUP PER TUBE SCH (03:56)
[2017-01-28 06:32] LABS: Magnesium 2.9 MG/DL (1.8-2.4); Phosphorous 8.7 MG/DL (2.5-4.9); Prealbumin 37.3 MG/DL (20-40)
[2017-01-28] MEDS: ISOSORBIDE MONONITRATE 30 MG TABLET PO SCH (08:15)
[2017-01-28] MEDS: ENOXAPARIN 30 MG/0.3 ML SYRINGE SUBCUT SCH (08:15)
[2017-01-28] MEDS: ASPIRIN EC 81 MG TABLET PO SCH (08:15)
[2017-01-28] MEDS: ZINC OXIDE PASTE 113 GM TUBE TOP SCH (08:15)
[2017-01-28] MEDS: amLODIPine 5 MG TABLET PO SCH (08:15)
[2017-01-28] MEDS: MUPIROCIN 2% OINT 22 GM TUBE TOP SCH (08:15)
[2017-01-28] MEDS: CARBIDOPA/LEVODOPA 25-100 MG TABLET PO SCH (08:15)
[2017-01-28] MEDS: MULTIVITAMIN LIQUID (CENTRUM) 60 ML BOTTLE NG SCH (08:15)
[2017-01-28] MEDS: CLOPIDOGREL 75 MG TABLET PO SCH (08:15)
[2017-01-28] MEDS: CARVEDILOL 6.25 MG TABLET PO SCH (08:15)
[2017-01-28] MEDS: RIVASTIGMINE 9.5 MG/24 HR PATCH TRANSDERM SCH (08:16)
[2017-01-28] MEDS: INSULIN GLARGINE 100 UNIT/ML SUBCUT SCH (08:16)
--- NOTE | 2017-01-28 10:42 | Discharge Summary ---
<Krupa Harris - Last Filed: 01/28/17 09:17> Hospital Course - Hospital Course Hospital Course: Ms Wood 71 y/o w/PMHx Afib, CAD, HTN, CT, CVA, Dementia, dyslipidemia, Parkinson's, DM, Arthritis, GERD presented to ED on 01/19/17 as transfer via [facility] from [place] for respiratory distress and elevated BNP. Hospital Medicine was consulted for admission. Intubated, cxr shows bilateral infiltrates/edema and admit to critical care, start diuretics, consult pulmonary , uncontrolled diabetes with hypoglycemia, hyperkalemia, CKD stage IV, elevated troponin-repeat serial cardiac enzymes, cardiology consult. IN ED: BNP 2000, WBC 11.8, ABG pH 7.198, pCO2 50.4, pO2 73.5, HCO3 17.2, base excess -8.9, K 6.0 , Chloride 114, carbon dioxide 18, anion gap 17.0, BUN 48, Creatinine 2.30, Glucose 335, Alkaline Phosphatase 282, CK-MB 7.3, Troponin 0.605, urinalysis negative for infection. Blood culture final - no growth. Sputum culture final - normal. -A1c 9.0. Increased Lantus, blood glucose is better controlled. -Cardiology consult/plan/recommendations: EF 40-45%, continue diuretics, ASA, Plavix, and Coreg for ICM &CAD, Imdur, labetalol, norvasc for HTN. -Pulmonary consult/plan/recommendations: intubated for acute respiratory failure , acute CHF. Weaned and successfully extubated patient. Venous doppler showed no DVT. -Nephrology consult/plan/recommendations: Lasix, amp of calcium gluconate for hyperkalemia: treated and resolved. Today Ms Wood is stable and will be discharged back [facility]. Labs are improved and stable. Blood pressure is controlled. Diabetes is controlled. She will be transferred [facility] to [facility]. She will need to follow up with Primary Care Provider. She will need to follow up with Dr Camp for cardiology. Speech therapy saw and made some recommendations. Discharge Plan - Discharge Data Disposition: Disch/Xfer to Snf - Discharge Medications New Albuterol/Ipratropium Neb [Duoneb] 3 ml RESP TX RT Q6H amLODIPine [Norvasc] 5 mg PO DAILY tablet Carvedilol [Coreg] 6.25 mg PO BID tablet Furosemide Liquid [Lasix Liquid] 80 mg PER TUBE Q8H Insulin Glargine [Lantus] 55 unit SUBCUT BID unit Insulin Lispro [HumaLOG] See Protocol SUBCUT Q6HR unit Isosorbide Mononitrate [Imdur] 30 mg PO DAILY tablet Mupirocin 2% Oint [Bactroban 2% Oint] 1 applic TOP BID applic Oxymetazoline 0.05% Nasal Spr [Afrin Nasal [place]] 2 spray BOTH NARES BID PRN bottle PRN Reason: nose bleed Zinc Oxide Paste [Desitin Paste] 1 applic TOP BID applic hydrALAZINE TAB [Apresoline Tab] 50 mg PO TID tablet Multivitamin Liquid (Centrum) [Centrum Liquid] 15 ml NG DAILY bottle Continue Bisacodyl Supp [Dulcolax Supp] 10 mg RECTAL Q8H PRN PRN Reason: Constipation Sennosides [Senna] 8.8 mg PO Q8H PRN PRN Reason: Constipation Multivitamin [One Daily] 1 each PO DAILY Aspirin [Ecotrin] 81 mg PO DAILY Sertraline [Zoloft] 75 mg PO BEDTIME Carbidopa/Levodopa 25-100 [Sinemet 25-100] 1 tablet PO TID Memantine [Namenda] 10 mg PO BID Pantoprazole Tab [Protonix Tab] 40 mg PO DAILY OLANZapine [Olanzapine] 5 mg PO Q48H Rivastigmine 9.5 mg/24Hr Patch [Exelon 9.5 mg/24 hr Patch] 1 patch TRANSDERM DAILY Clopidogrel [Plavix] 75 mg PO DAILY Acetaminophen 650 mg PO Q6H PRN PRN Reason: Pain Ferrous Sulfate 325 mg PO DAILY Nystatin 1 applic TOP BID Ezetimibe [Zetia] 10 mg PO BEDTIME OLANZapine [Olanzapine] 2.5 mg PO Q48H Discontinued Magnesium Hydroxide Susp [Milk of Magnesia] 60 ml PO DAILY PRN PRN Reason: Constipation Alum/Mag/Simeth Max Str Liquid [Mylanta Max Strength Liquid] 30 ml PO Q8HR PRN PRN Reason: Reflux Carvedilol [Coreg] 3.125 mg PO BID Insulin Detemir [Levemir] 89 unit SUBCUT 1600 Multivitamin (Ocuvite) [Ocuvite] 1 tablet PO DAILY Linagliptin [Tradjenta] 5 mg PO DAILY - Follow Up or Referral - Forms/Instructions Exam - Constitutional Vitals: Period Temp Pulse Resp BP Sys/Romero Pulse Ox Last 24 Hr 96.6 F-98.8 F 78-97 16-20 124-141/58-77 92-99 Discharge Results Procedures and tests throughout hospitalization: Pending Orders 01/31/17 04:00 Magnesium MOTH Phosphorous MOTH Prealbumin MOTH Labs on day of discharge: Labs from last 24 hours 01/28/17 01/28/17 01/28/17 07:23 06:38 05:58 POC Glucose 111 H 129 H 59 L Phosphorus Magnesium Prealbumin 01/28/17 01/27/17 01/27/17 04:29 23:51 20:52 POC Glucose 250 H 304 H Phosphorus 8.7 H Magnesium 2.9 H Prealbumin 37.3 01/27/17 11:27 POC Glucose 151 H Phosphorus Magnesium Prealbumin DS: Provider Date of admission: 01/19/17 02:41 Primary care physician: . No PCP Attending physician on admission: Edouard Moore MD Consults: 01/19/17 02:41 Consult to Physician [CONS] Routine Comment: Acute respiratory failure intubated [place] [facility] [place] Provider Notified: No When should Consulting Provider be notified: In am Person Notified: MD morocho 01/19/17 02:53 Consult to Physician [CONS] Routine Comment: Elevated troponin Consulting Provider: Cardiology - [facility] Consulting Provider Notified: No When should Consulting Provider be notified: In am Person Notified: MD morocho 01/19/17 04:33 Consult to Dietitian [CONS] Routine Reason for Dietitian: TF-Initiate/Manage Consult Comment: PT ON VENT. PT hAS NGT 01/19/17 04:37 Consult to Pastoral Services [CONS] Routine Comment: Pastoral Screen: Declines Visit Pastoral Screen Source of Request: Family 01/19/17 07:25 Consult to Physician [CONS] Routine Comment: renal failure Consulting Provider: Finn Wang Jr. Consulting Provider Notified: Yes Consult to Specialist Group: Nephrology When should Consulting Provider be notified: Now Person Notified: Dr. Wang Date Notified: 01/19/17 Time Notified: 07:46 01/21/17 20:20 Consult to Physical Therapy [CONS] Routine Reason for Physical Therapy: Weakness Discharging clinician: Krupa Harris NP <Leyda Olsen - Last Filed: 01/28/17 10:54> Hospital Course - Time spent with patient Time with patient DS: Greater than 30 minutes (greater than 30mins) Diagnosis - Discharge Diagnosis (1) Acute respiratory failure Status: Acute (2) Acute on chronic systolic (congestive) heart failure Status: Acute (3) Acute on chronic renal failure Status: Acute (4) Diabetes mellitus Status: Chronic (5) Hypertension Status: Chronic (6) Coronary artery disease Status: Chronic (7) Parkinsons Status: Acute (8) Alzheimer disease Status: Chronic (9) History of stroke Status: Acute (10) Dysphagia Status: Acute Discharge Plan - Discharge Data Condition at Discharge: Stable Discharge Diet: advance to your usual diet Exam - Constitutional General appearance: no acute distress - Head Head exam: Present: normal inspection - Respiratory Respiratory exam: Present: clear to auscultation bilaterally - Cardiovascular Cardiovascular exam: Present: regular rate and rhythm - GI/Abdominal GI/Abdominal exam: Present: normal bowel sounds - Extremities Exam Extremities exam: Present: normal inspection
[2017-01-28 11:23] VITALS: BP 127/68
== END 2017-01-28 12:28 | DRG 207 ==
LOC: EDUNIT# → EDBD → N.ED 01:29 → N.ICU 02:41 → SUATTDRO 02:41 → N.ICU 03:30 → N.5E 01-24 15:04
PROVIDERS: ADMIT Internal Medicine; ATTEND Internal Medicine

== ENCOUNTER 2017-03-14 22:00 | Observation (INO) ==
[2017-03-14] MEDS ORDERED: ASPIRIN 325 MG TABLET PO STA (22:47)
[2017-03-14] MEDS ORDERED: ASPIRIN 325 MG TABLET ONE (23:27)
[2017-03-14 23:36] LABS: Basophils % 0.2 % (0.0-0.8); Eosinophils # 0.2 10*3/uL (0.0-0.87); Eosinophils % 2.6 % (0.00-10.9); Hematocrit 32.2 VOL% (35.7-47.0); Hemoglobin 10.2 GM/DL (12.0-16.0); Immature Granulocytes % 1.1 %; Immature Granulocytes Absolute 0.07 #; Lymphocytes # 1.3 10*3/uL (1.4-4.0); Lymphocytes % 20.5 % (21.3-54.2); Mean Corpuscular HGB Conc 31.7 GM/DL (32-36); Mean Corpuscular Hemoglobin 29 PG (27-34); Mean Corpuscular Volume 90.7 FL (87-102); Mean Platelet Volume 10.5 FL (9.6-12.0); Monocytes # 0.5 10*3/uL (0.11-0.8); Monocytes % 8.4 % (1.7-12.7); Neutrophils # 4.2 10*3/uL (1.4-7.4); Neutrophils % 67.2 % (38.7-73.9); Platelet Count 187 T/CUMM (130-400); Red Blood Count 3.55 MC/CUMM (3.8-5.5); Red Cell Distribution Width 14.9 % (9.3-17.3); White Blood Count 6.2 T/CUMM (4-12)
[2017-03-14] MEDS ORDERED: INSULIN REGULAR 100 UNIT/ML IV STA (23:38)
[2017-03-14 23:52] LABS: Alanine Aminotransferase 10 U/L (13-56); Alkaline Phosphatase 156 U/L (45-117); Aspartate Amino Transferase 17 U/L (0-37); Bilirubin,Total < 0.39 MG/DL (0.2-1.0); Blood Urea Nitrogen 72 MG/DL (7-18); Glucose 353 MG/DL (74-106); Osmolality,Calculated 313.4 MOS/KG (273-304); Sodium 140 MMOL/L (136-145); Total Protein 6.3 G/DL (6.4-8.3)
[2017-03-15] MEDS ORDERED: INSULIN REGULAR 100 UNIT/ML ONE (00:01)
[2017-03-15] MEDS ORDERED: ONDANSETRON 4 MG/2 ML VIAL IV PRN (01:25)
[2017-03-15] MEDS ORDERED: GLUCAGON 1 MG VIAL IM PRN ×2 (01:25→01:43)
[2017-03-15] MEDS ORDERED: ACETAMINOPHEN 325 MG TABLET PO PRN (01:25)
[2017-03-15] MEDS ORDERED: DEXTROSE 50% 25 GM/50 ML VIAL IV PRN ×2 (01:25→01:43)
[2017-03-15 03:27] LABS: Basophils % 0.2 % (0.0-0.8); Eosinophils # 0.2 10*3/uL (0.0-0.87); Eosinophils % 2.8 % (0.00-10.9); Hematocrit 31.1 VOL% (35.7-47.0); Hemoglobin 9.8 GM/DL (12.0-16.0); Immature Granulocytes % 1.1 %; Immature Granulocytes Absolute 0.07 #; Lymphocytes # 1.9 10*3/uL (1.4-4.0); Lymphocytes % 30.9 % (21.3-54.2); Mean Corpuscular HGB Conc 31.5 GM/DL (32-36); Mean Corpuscular Hemoglobin 29 PG (27-34); Mean Corpuscular Volume 90.4 FL (87-102); Mean Platelet Volume 10.4 FL (9.6-12.0); Monocytes # 0.5 10*3/uL (0.11-0.8); Monocytes % 8.8 % (1.7-12.7); Neutrophils # 3.5 10*3/uL (1.4-7.4); Neutrophils % 56.2 % (38.7-73.9); Platelet Count 175 T/CUMM (130-400); Red Blood Count 3.44 MC/CUMM (3.8-5.5); Red Cell Distribution Width 14.9 % (9.3-17.3); White Blood Count 6.1 T/CUMM (4-12)
[2017-03-15 03:53] LABS: Magnesium 3.1 MG/DL (1.8-2.4); Potassium 4.4 MMOL/L (3.5-5.1)
[2017-03-15] MEDS: ENOXAPARIN 100 MG/ML SYRINGE SUBCUT SCH (04:26)
[2017-03-15] MEDS ORDERED: ENOXAPARIN 80 MG/0.8 ML SYRINGE SUBCUT SCH (04:30)
[2017-03-15] MEDS ORDERED: ASPIRIN EC 325 MG TABLET PO ONE (04:31)
[2017-03-15] MEDS: INSULIN LISPRO 100 UNIT/ML SUBCUT SCH ×4 (08:21→20:41)
[2017-03-15] MEDS: ISOSORBIDE MONONITRATE 30 MG TABLET PO SCH (09:51)
[2017-03-15] MEDS: OLANZapine 2.5 MG TABLET PO SCH (12:28)
[2017-03-15] MEDS: ASPIRIN EC 81 MG TABLET PO SCH (12:28)
[2017-03-15] MEDS ORDERED: FUROSEMIDE 20 MG TABLET PO SCH (12:31)
[2017-03-15 13:41] LABS: Apearance,Urine CLOUDY (Clear); Bacteria,Urine Moderate /HPF (Few); Bilirubin,Urine Negative (Negative); Blood, Urine Small mg/dL (Negative); Glucose,Urine (UA) 50 mg/dL (Negative); Ketones,Urine Negative (Negative); Nitrite,Urine Negative (Negative); Protein,Urine 100 MG/DL; RBC,Urine 13 /HPF (0-4); Squamous Epithelial Cell,Urine Occasional /HPF (0-10); Urine Color Amber (Yellow); Urine Specific Gravity 1.009 (1.001-1.035); Urine Urobilinogen < 2.0 EU/DL (0.2-1.0); WBC,Urine 1152 /HPF (0-6)
[2017-03-15] MEDS: FUROSEMIDE 40 MG/4 ML VIAL IV SCH (14:19)
[2017-03-15] MEDS: CARBIDOPA/LEVODOPA 25-100 MG TABLET PO SCH ×2 (14:24→20:40)
[2017-03-15] MEDS: ATORVASTATIN 80 MG TABLET PO SCH (16:12)
[2017-03-15] MEDS: SERTRALINE 50 MG TABLET PO SCH (20:41)
[2017-03-15] MEDS: PANTOPRAZOLE 40 MG TABLET PO SCH (20:41)
[2017-03-15] MEDS: EZETIMIBE 10 MG TABLET PO SCH (20:41)
[2017-03-15] MEDS: CARVEDILOL 6.25 MG TABLET PO SCH (20:41)
[2017-03-15] MEDS: MEMANTINE 10 MG TABLET PO SCH (20:51)
[2017-03-16 05:48] LABS: Basophils % 0.2 % (0.0-0.8); Eosinophils # 0.2 10*3/uL (0.0-0.87); Eosinophils % 4.2 % (0.00-10.9); Hematocrit 31.9 VOL% (35.7-47.0); Immature Granulocytes % 0.9 %; Immature Granulocytes Absolute 0.05 #; Lymphocytes # 2.1 10*3/uL (1.4-4.0); Lymphocytes % 36.6 % (21.3-54.2); Mean Corpuscular HGB Conc 31.3 GM/DL (32-36); Mean Corpuscular Hemoglobin 29 PG (27-34); Mean Corpuscular Volume 92.5 FL (87-102); Monocytes # 0.5 10*3/uL (0.11-0.8); Monocytes % 9.2 % (1.7-12.7); Neutrophils # 2.8 10*3/uL (1.4-7.4); Neutrophils % 48.9 % (38.7-73.9); Platelet Count 174 T/CUMM (130-400); Red Blood Count 3.45 MC/CUMM (3.8-5.5); White Blood Count 5.7 T/CUMM (4-12)
[2017-03-16 06:08] LABS: Calcium 8.5 MG/DL (8.5-10.1); Magnesium 2.8 MG/DL (1.8-2.4); Osmolality,Calculated 300.5 MOS/KG (273-304); Potassium 5.3 MMOL/L (3.5-5.1)
[2017-03-16 06:12] LABS: Risk Ratio 5.28; VLDL CHOLESTEROL 52.6 MG/DL
[2017-03-16] MEDS: ENOXAPARIN 100 MG/ML SYRINGE SUBCUT SCH (06:13)
[2017-03-16 06:18] LABS: Calcium 8.4 MG/DL (8.5-10.1); Osmolality,Calculated 299.5 MOS/KG (273-304); Potassium 5.3 MMOL/L (3.5-5.1)
[2017-03-16 06:34] LABS: Troponin I Only 0.475 NG/ML (0.00-0.045)
[2017-03-16] MEDS: INSULIN LISPRO 100 UNIT/ML SUBCUT SCH ×4 (08:26→20:46)
[2017-03-16] MEDS: MULTIVITAMIN (CENTRUM) TABLET PO SCH (08:27)
[2017-03-16] MEDS: ATORVASTATIN 80 MG TABLET PO SCH (08:27)
[2017-03-16] MEDS: CARVEDILOL 6.25 MG TABLET PO SCH ×2 (08:27→20:40)
[2017-03-16] MEDS: CARBIDOPA/LEVODOPA 25-100 MG TABLET PO SCH ×3 (08:27→20:40)
[2017-03-16] MEDS: ASPIRIN EC 81 MG TABLET PO SCH (08:27)
[2017-03-16] MEDS: CLOPIDOGREL 75 MG TABLET PO SCH (08:27)
[2017-03-16] MEDS: FUROSEMIDE 40 MG/4 ML VIAL IV SCH (08:28)
[2017-03-16] MEDS: ISOSORBIDE MONONITRATE 30 MG TABLET PO SCH (08:28)
[2017-03-16] MEDS: MEMANTINE 10 MG TABLET PO SCH ×2 (08:28→20:40)
[2017-03-16] MEDS: PANTOPRAZOLE 40 MG TABLET PO SCH ×2 (08:28→20:40)
[2017-03-16] MEDS: RIVASTIGMINE 4.6 MG/24 HR PATCH TRANSDERM SCH (08:34)
[2017-03-16] MEDS ORDERED: FUROSEMIDE 20 MG TABLET PO SCH (09:00)
[2017-03-16] MEDS ORDERED: SODIUM POLYSTYRENE SULFATE 15 GM/60 ML BOTTLE PO ONE (14:30)
[2017-03-16] MEDS: INSULIN GLARGINE 100 UNIT/ML SUBCUT SCH (15:13)
[2017-03-16] MEDS: cefTRIAXone 1,000 MG in SYRINGE 1 EACH IV SCH (15:17)
[2017-03-16] MEDS: EZETIMIBE 10 MG TABLET PO SCH (20:40)
[2017-03-16] MEDS: SERTRALINE 50 MG TABLET PO SCH (20:40)
[2017-03-17 04:50] LABS: Basophils % 0.2 % (0.0-0.8); Eosinophils # 0.2 10*3/uL (0.0-0.87); Eosinophils % 3.6 % (0.00-10.9); Hematocrit 31.3 VOL% (35.7-47.0); Immature Granulocytes % 0.5 %; Immature Granulocytes Absolute 0.03 #; Lymphocytes # 1.8 10*3/uL (1.4-4.0); Lymphocytes % 30.9 % (21.3-54.2); Mean Corpuscular HGB Conc 31.9 GM/DL (32-36); Mean Corpuscular Hemoglobin 29 PG (27-34); Mean Corpuscular Volume 89.9 FL (87-102); Mean Platelet Volume 10.9 FL (9.6-12.0); Monocytes # 0.5 10*3/uL (0.11-0.8); Monocytes % 9.1 % (1.7-12.7); Neutrophils # 3.2 10*3/uL (1.4-7.4); Neutrophils % 55.7 % (38.7-73.9); Platelet Count 175 T/CUMM (130-400); Red Blood Count 3.48 MC/CUMM (3.8-5.5); Red Cell Distribution Width 14.6 % (9.3-17.3); White Blood Count 5.8 T/CUMM (4-12)
[2017-03-17 05:14] LABS: Calcium 8.3 MG/DL (8.5-10.1); Magnesium 2.6 MG/DL (1.8-2.4); Osmolality,Calculated 296.7 MOS/KG (273-304); Osmolality,Calculated 301.4 MOS/KG (273-304); Potassium 4.8 MMOL/L (3.5-5.1)
[2017-03-17] MEDS: ISOSORBIDE MONONITRATE 30 MG TABLET PO SCH (08:17)
[2017-03-17] MEDS: MEMANTINE 10 MG TABLET PO SCH (08:17)
[2017-03-17] MEDS: ATORVASTATIN 80 MG TABLET PO SCH (08:17)
[2017-03-17] MEDS: CLOPIDOGREL 75 MG TABLET PO SCH (08:18)
[2017-03-17] MEDS: PANTOPRAZOLE 40 MG TABLET PO SCH (08:18)
[2017-03-17] MEDS: MULTIVITAMIN (CENTRUM) TABLET PO SCH (08:18)
[2017-03-17] MEDS: ASPIRIN EC 81 MG TABLET PO SCH (08:18)
[2017-03-17] MEDS: CARBIDOPA/LEVODOPA 25-100 MG TABLET PO SCH (08:18)
[2017-03-17] MEDS: CARVEDILOL 6.25 MG TABLET PO SCH (08:18)
[2017-03-17] MEDS: RIVASTIGMINE 4.6 MG/24 HR PATCH TRANSDERM SCH (08:18)
[2017-03-17] MEDS: INSULIN GLARGINE 100 UNIT/ML SUBCUT SCH (08:21)
[2017-03-17] MEDS: INSULIN LISPRO 100 UNIT/ML SUBCUT SCH ×2 (08:21→11:53)
[2017-03-17] MEDS: FUROSEMIDE 40 MG/4 ML VIAL IV SCH (08:23)
[2017-03-17] MEDS: OLANZapine 2.5 MG TABLET PO SCH (11:52)
[2017-03-17 12:16] VITALS: BP 130/65
[2017-03-17] MEDS: cefTRIAXone 1,000 MG in SYRINGE 1 EACH IV SCH (12:39)
== END 2017-03-17 13:00 ==
LOC: EDBD → EDUNIT# → N.EDINP 22:00 → N.ED 22:00 → SUATTDRO 03-15 00:57 → N.TELEN 03-15 01:34
PROVIDERS: ADMIT Hospitalist; ATTEND Internal Medicine

== ENCOUNTER 2017-05-07 23:03 | Inpatient (IN) ==
[2017-05-07] MEDS ORDERED: FUROSEMIDE 100 MG/10 ML VIAL IV STA (23:39)
[2017-05-07] MEDS ORDERED: hydrALAZINE 20 MG/1 ML VIAL IV STA (23:42)
[2017-05-07] MEDS ORDERED: hydrALAZINE 20 MG/1 ML VIAL ONE (23:44)
[2017-05-07] MEDS ORDERED: FUROSEMIDE 40 MG/4 ML VIAL ONE (23:44)
[2017-05-08] MEDS ORDERED: ACETAMINOPHEN 500 MG TABLET PO STA (00:12)
[2017-05-08] MEDS ORDERED: ACETAMINOPHEN 500 MG TABLET ONE (00:18)
[2017-05-08 00:27] LABS: Basophils % 0.2 % (0.0-0.8); Eosinophils # 0.2 10*3/uL (0.0-0.87); Eosinophils % 2.2 % (0.00-10.9); Hematocrit 32.3 VOL% (35.7-47.0); Hemoglobin 10.1 GM/DL (12.0-16.0); Immature Granulocytes % 0.5 %; Immature Granulocytes Absolute 0.04 #; Lymphocytes # 0.9 10*3/uL (1.4-4.0); Lymphocytes % 10.4 % (21.3-54.2); Mean Corpuscular HGB Conc 31.3 GM/DL (32-36); Mean Corpuscular Hemoglobin 30 PG (27-34); Mean Corpuscular Volume 96.1 FL (87-102); Mean Platelet Volume 10.9 FL (9.6-12.0); Monocytes # 0.4 10*3/uL (0.11-0.8); Monocytes % 4.7 % (1.7-12.7); Neutrophils # 6.8 10*3/uL (1.4-7.4); Platelet Count 159 T/CUMM (130-400); Red Blood Count 3.36 MC/CUMM (3.8-5.5); Red Cell Distribution Width 14.4 % (9.3-17.3); White Blood Count 8.2 T/CUMM (4-12)
[2017-05-08 00:38] LABS: Alanine Aminotransferase < 6 U/L (13-56); Albumin 3.3 G/DL (3.4-5.0); Alkaline Phosphatase 121 U/L (45-117); Aspartate Amino Transferase 19 U/L (0-37); Bilirubin,Total < 0.39 MG/DL (0.2-1.0); Blood Urea Nitrogen 40 MG/DL (7-18); Calcium 8.1 MG/DL (8.5-10.1); Glucose 288 MG/DL (74-106); Osmolality,Calculated 301.3 MOS/KG (273-304); Potassium 4.5 MMOL/L (3.5-5.1); Sodium 141 MMOL/L (136-145); Total Protein 6.5 G/DL (6.4-8.3)
[2017-05-08 00:40] LABS: Amorphous Crystals,Urine Occasional /HPF (Few); Apearance,Urine CLEAR (Clear); Bacteria,Urine Occasional /HPF (Few); Bilirubin,Urine Negative (Negative); Blood, Urine Negative (Negative); Glucose,Urine (UA) >=500 mg/dL (Negative); Ketones,Urine Negative (Negative); Mucus,Urine Occasional /LPF (Occasional); Nitrite,Urine Negative (Negative); Protein,Urine 100 MG/DL; RBC,Urine <1 /HPF (0-4); Urine Color Yellow (Yellow); Urine Specific Gravity 1.006 (1.001-1.035); Urine Urobilinogen < 2.0 EU/DL (0.2-1.0); WBC,Urine <1 /HPF (0-6)
[2017-05-08] MEDS ORDERED: MAGNESIUM SULF RIDER 4 GM in PREMIX 1 EACH IV PRN (02:16)
[2017-05-08] MEDS ORDERED: DEXTROSE 50% 25 GM/50 ML VIAL IV PRN (02:16)
[2017-05-08] MEDS ORDERED: ZALEPLON 5 MG CAPSULE PO PRN (02:16)
[2017-05-08] MEDS ORDERED: ONDANSETRON 4 MG/2 ML VIAL IV PRN (02:16)
[2017-05-08] MEDS ORDERED: GLUCAGON 1 MG VIAL IM PRN (02:16)
[2017-05-08] MEDS ORDERED: MAGNESIUM SULF RIDER 2 GM in PREMIX 1 EACH IV PRN ×2 (02:16→09:35)
[2017-05-08 07:03] LABS: Basophils % 0.3 % (0.0-0.8); Eosinophils # 0.1 10*3/uL (0.0-0.87); Eosinophils % 0.9 % (0.00-10.9); Hematocrit 30.3 VOL% (35.7-47.0); Hemoglobin 9.4 GM/DL (12.0-16.0); Immature Granulocytes % 0.3 %; Immature Granulocytes Absolute 0.02 #; Lymphocytes # 1.4 10*3/uL (1.4-4.0); Lymphocytes % 24.8 % (21.3-54.2); Mean Corpuscular Hemoglobin 30 PG (27-34); Mean Corpuscular Volume 95.3 FL (87-102); Mean Platelet Volume 10.8 FL (9.6-12.0); Monocytes # 0.4 10*3/uL (0.11-0.8); Monocytes % 6.2 % (1.7-12.7); Neutrophils # 3.9 10*3/uL (1.4-7.4); Neutrophils % 67.5 % (38.7-73.9); Platelet Count 161 T/CUMM (130-400); Red Blood Count 3.18 MC/CUMM (3.8-5.5); Red Cell Distribution Width 14.3 % (9.3-17.3); White Blood Count 5.8 T/CUMM (4-12)
[2017-05-08 07:30] LABS: Calcium 8.2 MG/DL (8.5-10.1); Potassium 4.5 MMOL/L (3.5-5.1)
[2017-05-08] MEDS: ALBUTEROL/IPRATROPIUM 3 ML NEB RESP TX SCH ×3 (07:31→19:27)
[2017-05-08] MEDS ORDERED: FUROSEMIDE 40 MG/4 ML VIAL IV SCH (08:00)
[2017-05-08] MEDS ORDERED: ENOXAPARIN 30 MG/0.3 ML SYRINGE SUBCUT SCH (09:00)
[2017-05-08] MEDS ORDERED: diphenhydrAMINE CAP 25 MG CAPSULE PO ONE (09:35)
[2017-05-08] MEDS ORDERED: DIAZEPAM 5 MG TABLET PO ONE (09:35)
[2017-05-08] MEDS ORDERED: POTASSIUM CHLORIDE RIDER 10 MEQ in PREMIX 1 EACH IV PRN (09:35)
[2017-05-08] MEDS ORDERED: ENOXAPARIN 80 MG/0.8 ML SYRINGE SUBCUT ONE ×2 (09:43→09:47)
[2017-05-08] MEDS: ISOSORBIDE MONONITRATE 30 MG TABLET PO SCH (09:45)
[2017-05-08] MEDS: CARVEDILOL 6.25 MG TABLET PO SCH ×2 (09:45→21:43)
[2017-05-08] MEDS: PANTOPRAZOLE 40 MG TABLET PO SCH (09:45)
[2017-05-08] MEDS: ASPIRIN EC 81 MG TABLET PO SCH (09:45)
[2017-05-08] MEDS: CLOPIDOGREL 75 MG TABLET PO SCH (09:46)
[2017-05-08] MEDS: amLODIPine 5 MG TABLET PO SCH (09:46)
[2017-05-08] MEDS ORDERED: SODIUM CHLORIDE 0.45% 1,000 ML IV SCH (10:00)
[2017-05-08] MEDS: INSULIN REGULAR 100 UNIT/ML SUBCUT SCH ×4 (10:08→21:56)
[2017-05-08] MEDS ORDERED: LIDOCAINE 1% 20 ML VIAL ONE (10:22)
[2017-05-08] MEDS ORDERED: HYDROmorphone 2 MG/1 ML VIAL ONE (10:23)
[2017-05-08] MEDS ORDERED: MIDAZOLAM 2 MG/2 ML VIAL ONE (10:24)
[2017-05-08] MEDS ORDERED: HYDROmorphone 2 MG/1 ML VIAL IV PRN (11:23)
[2017-05-08] MEDS ORDERED: NITROGLYCERIN SL 0.4 MG TABLET SL PRN (11:23)
[2017-05-08] MEDS ORDERED: CLOPIDOGREL 75 MG TABLET ONE (11:27)
[2017-05-08] MEDS: SODIUM CHLORIDE 0.45% 1,000 ML IV SCH (12:30)
[2017-05-08 12:43] LABS: CKMB % 6.9 %
[2017-05-08 12:50] LABS: Troponin I Only 2.79 NG/ML (0.00-0.045)
[2017-05-08] MEDS: CEFUROXIME 250 MG TABLET PO SCH ×2 (13:55→21:42)
[2017-05-08] MEDS: ATORVASTATIN 80 MG TABLET PO SCH (13:55)
[2017-05-08] MEDS: FERROUS SULFATE 325 MG TABLET PO SCH (13:55)
[2017-05-08] MEDS: OLANZapine 2.5 MG TABLET PO SCH (13:56)
[2017-05-08] MEDS: CARBIDOPA/LEVODOPA 25-100 MG TABLET PO SCH ×3 (13:56→21:43)
[2017-05-08] MEDS: MULTIVITAMIN (CENTRUM) TABLET PO SCH (13:56)
[2017-05-08] MEDS: RIVASTIGMINE 4.6 MG/24 HR PATCH TRANSDERM SCH (14:33)
[2017-05-08] MEDS: SERTRALINE 50 MG TABLET PO SCH (21:43)
[2017-05-08] MEDS: ACETAMINOPHEN 325 MG TABLET PO PRN (21:48)
[2017-05-09] MEDS: ALBUTEROL/IPRATROPIUM 3 ML NEB RESP TX SCH ×4 (01:13→19:52)
[2017-05-09] MEDS: SODIUM CHLORIDE 0.45% 1,000 ML IV SCH ×2 (02:58→14:58)
[2017-05-09 05:13] LABS: Basophils % 0.2 % (0.0-0.8); Eosinophils # 0.2 10*3/uL (0.0-0.87); Eosinophils % 3.4 % (0.00-10.9); Hematocrit 28.5 VOL% (35.7-47.0); Hemoglobin 9.1 GM/DL (12.0-16.0); Immature Granulocytes % 0.4 %; Immature Granulocytes Absolute 0.02 #; Lymphocytes # 1.4 10*3/uL (1.4-4.0); Lymphocytes % 26.7 % (21.3-54.2); Mean Corpuscular HGB Conc 31.9 GM/DL (32-36); Mean Corpuscular Hemoglobin 30 PG (27-34); Mean Corpuscular Volume 93.1 FL (87-102); Mean Platelet Volume 11.2 FL (9.6-12.0); Monocytes # 0.5 10*3/uL (0.11-0.8); Neutrophils # 3.2 10*3/uL (1.4-7.4); Neutrophils % 60.3 % (38.7-73.9); Platelet Count 157 T/CUMM (130-400); Red Blood Count 3.06 MC/CUMM (3.8-5.5); Red Cell Distribution Width 14.4 % (9.3-17.3); White Blood Count 5.2 T/CUMM (4-12)
[2017-05-09 06:13] LABS: Calcium 7.8 MG/DL (8.5-10.1); Osmolality,Calculated 294.5 MOS/KG (273-304); Potassium 4.4 MMOL/L (3.5-5.1)
[2017-05-09] MEDS: INSULIN REGULAR 100 UNIT/ML SUBCUT SCH ×4 (08:40→21:10)
[2017-05-09] MEDS: CARBIDOPA/LEVODOPA 25-100 MG TABLET PO SCH ×3 (08:41→21:09)
[2017-05-09] MEDS: CEFUROXIME 250 MG TABLET PO SCH ×2 (08:41→21:10)
[2017-05-09] MEDS: OLANZapine 2.5 MG TABLET PO SCH (08:41)
[2017-05-09] MEDS: PANTOPRAZOLE 40 MG TABLET PO SCH (08:41)
[2017-05-09] MEDS: CLOPIDOGREL 75 MG TABLET PO SCH (08:41)
[2017-05-09] MEDS: amLODIPine 5 MG TABLET PO SCH (08:41)
[2017-05-09] MEDS: FERROUS SULFATE 325 MG TABLET PO SCH (08:41)
[2017-05-09] MEDS: CARVEDILOL 6.25 MG TABLET PO SCH ×2 (08:41→21:10)
[2017-05-09] MEDS: MULTIVITAMIN (CENTRUM) TABLET PO SCH (08:42)
[2017-05-09] MEDS: ATORVASTATIN 80 MG TABLET PO SCH (08:42)
[2017-05-09] MEDS: ASPIRIN EC 81 MG TABLET PO SCH (08:42)
[2017-05-09] MEDS: ISOSORBIDE MONONITRATE 30 MG TABLET PO SCH (08:42)
[2017-05-09] MEDS ORDERED: OLANZapine 5 MG TABLET PO SCH (09:00)
[2017-05-09] MEDS: RIVASTIGMINE 4.6 MG/24 HR PATCH TRANSDERM SCH (14:58)
[2017-05-09] MEDS: ACETAMINOPHEN 325 MG TABLET PO PRN (21:09)
[2017-05-09] MEDS: SERTRALINE 50 MG TABLET PO SCH (21:10)
[2017-05-10] MEDS: ALBUTEROL/IPRATROPIUM 3 ML NEB RESP TX SCH ×2 (01:22→07:30)
[2017-05-10] MEDS: SODIUM CHLORIDE 0.45% 1,000 ML IV SCH (05:38)
[2017-05-10] MEDS: FERROUS SULFATE 325 MG TABLET PO SCH (09:30)
[2017-05-10] MEDS: PANTOPRAZOLE 40 MG TABLET PO SCH (09:30)
[2017-05-10] MEDS: amLODIPine 5 MG TABLET PO SCH (09:30)
[2017-05-10] MEDS: CARVEDILOL 6.25 MG TABLET PO SCH (09:31)
[2017-05-10] MEDS: ATORVASTATIN 80 MG TABLET PO SCH (09:31)
[2017-05-10] MEDS: ISOSORBIDE MONONITRATE 30 MG TABLET PO SCH (09:31)
[2017-05-10] MEDS: CEFUROXIME 250 MG TABLET PO SCH (09:31)
[2017-05-10] MEDS: CARBIDOPA/LEVODOPA 25-100 MG TABLET PO SCH (09:31)
[2017-05-10] MEDS: ASPIRIN EC 81 MG TABLET PO SCH (09:31)
[2017-05-10] MEDS: MULTIVITAMIN (CENTRUM) TABLET PO SCH (09:31)
[2017-05-10] MEDS: CLOPIDOGREL 75 MG TABLET PO SCH (09:31)
[2017-05-10] MEDS: INSULIN REGULAR 100 UNIT/ML SUBCUT SCH (09:32)
[2017-05-10] MEDS: OLANZapine 2.5 MG TABLET PO SCH (09:48)
[2017-05-10] MEDS: ACETAMINOPHEN 325 MG TABLET PO PRN (09:48)
[2017-05-10] MEDS: RIVASTIGMINE 4.6 MG/24 HR PATCH TRANSDERM SCH (09:49)
[2017-05-10 12:00] VITALS: BP 131/63
== END 2017-05-10 12:30 | DRG 246 ==
LOC: EDUNIT# → EDBD → N.ED 23:03 → SUATTDRO 05-08 02:12 → N.EDINP 05-08 02:12 → N.TELES 05-08 02:30
PROVIDERS: ADMIT Internal Medicine; ATTEND Internal Medicine
PROC: CLCCHCL (ICD-10-PCS; 2017-05-08 10:15)

== ENCOUNTER 2017-08-16 20:01 | Inpatient (IN) ==
[2017-08-16 20:49] LABS: Basophils % 0.3 % (0.0-0.8); Eosinophils # 0.1 10*3/uL (0.0-0.87); Eosinophils % 1.3 % (0.00-10.9); Hematocrit 28.9 VOL% (35.7-47.0); Hemoglobin 9.2 GM/DL (12.0-16.0); Immature Granulocytes % 0.4 %; Immature Granulocytes Absolute 0.03 #; Lymphocytes # 1.2 10*3/uL (1.4-4.0); Lymphocytes % 15.2 % (21.3-54.2); Mean Corpuscular HGB Conc 31.8 GM/DL (32-36); Mean Corpuscular Hemoglobin 30 PG (27-34); Mean Corpuscular Volume 93.5 FL (87-102); Mean Platelet Volume 11.3 FL (9.6-12.0); Monocytes # 0.6 10*3/uL (0.11-0.8); Monocytes % 6.9 % (1.7-12.7); Neutrophils # 6.1 10*3/uL (1.4-7.4); Neutrophils % 75.9 % (38.7-73.9); Platelet Count 183 T/CUMM (130-400); Red Blood Count 3.09 MC/CUMM (3.8-5.5); Red Cell Distribution Width 14.7 % (9.3-17.3)
[2017-08-16 21:16] LABS: Alanine Aminotransferase 13 U/L (13-56); Albumin 3.1 G/DL (3.4-5.0); Alkaline Phosphatase 97 U/L (45-117); Aspartate Amino Transferase 22 U/L (0-37); Bilirubin,Total < 0.39 MG/DL (0.2-1.0); Blood Urea Nitrogen 41 MG/DL (7-18); Calcium 8.4 MG/DL (8.5-10.1); Glucose 293 MG/DL (74-106); Osmolality,Calculated 299.4 MOS/KG (273-304); Potassium 5.4 MMOL/L (3.5-5.1); Sodium 140 MMOL/L (136-145); Total Protein 6.2 G/DL (6.4-8.3)
[2017-08-16] MEDS ORDERED: ATROPINE 1 MG/10 ML SYRINGE ONE ×2 (21:17→22:56)
[2017-08-16] MEDS ORDERED: ATROPINE 1 MG/10 ML SYRINGE IV STA ×2 (22:41→23:07)
[2017-08-17] MEDS ORDERED: hydrOXYzine HCL 25 MG TABLET PO PRN (04:41)
[2017-08-17] MEDS ORDERED: ALUMINUM/MAGNES/SIMETH MAX STR 30 ML UDCUP PO PRN (04:41)
[2017-08-17] MEDS ORDERED: LOPERAMIDE 2 MG CAPSULE PO PRN (04:41)
[2017-08-17] MEDS ORDERED: MAGNESIUM HYDROXIDE SUSP 30 ML UDCUP PO PRN (04:41)
[2017-08-17] MEDS ORDERED: diphenhydrAMINE CAP 25 MG CAPSULE PO PRN (04:41)
[2017-08-17] MEDS ORDERED: SENNA 8.6 MG TABLET PO PRN (04:41)
[2017-08-17] MEDS ORDERED: GLUCAGON 1 MG VIAL IM PRN (04:44)
[2017-08-17] MEDS ORDERED: DEXTROSE 50% 25 GM/50 ML VIAL IV PRN (04:44)
[2017-08-17] MEDS ORDERED: ONDANSETRON 4 MG/2 ML VIAL IV PRN (04:44)
[2017-08-17] MEDS ORDERED: GLUCAGON 1 MG VIAL IM ONE (05:30)
[2017-08-17] MEDS ORDERED: INSULIN REGULAR 100 UNIT/ML ONE (05:39)
[2017-08-17] MEDS: INSULIN REGULAR 100 UNIT/ML SUBCUT SCH ×5 (05:58→21:02)
[2017-08-17] MEDS: BISACODYL 10 MG SUPP RECTAL SCH ×3 (05:58→21:21)
[2017-08-17] MEDS: FUROSEMIDE 20 MG TABLET PO SCH (06:25)
[2017-08-17 06:48] LABS: Troponin I Only 0.069 NG/ML (0.00-0.045)
[2017-08-17] MEDS: ALBUTEROL/IPRATROPIUM 3 ML NEB RESP TX SCH ×3 (07:10→19:08)
[2017-08-17] MEDS: ATORVASTATIN 80 MG TABLET PO SCH (08:30)
[2017-08-17] MEDS: FERROUS SULFATE 325 MG TABLET PO SCH (08:30)
[2017-08-17] MEDS: MULTIVITAMIN (CENTRUM) TABLET PO SCH (08:30)
[2017-08-17] MEDS: ISOSORBIDE MONONITRATE 30 MG TABLET PO SCH (08:30)
[2017-08-17] MEDS: INSULIN GLARGINE 100 UNIT/ML SUBCUT SCH (08:30)
[2017-08-17] MEDS: ASPIRIN EC 81 MG TABLET PO SCH (08:30)
[2017-08-17] MEDS: amLODIPine 5 MG TABLET PO SCH (08:30)
[2017-08-17] MEDS: CLOPIDOGREL 75 MG TABLET PO SCH (08:30)
[2017-08-17] MEDS: PANTOPRAZOLE 40 MG TABLET PO SCH ×2 (08:35→21:00)
[2017-08-17] MEDS: RIVASTIGMINE 4.6 MG/24 HR PATCH TRANSDERM SCH (08:35)
[2017-08-17] MEDS: CARBIDOPA/LEVODOPA 25-100 MG TABLET PO SCH ×3 (08:35→21:00)
[2017-08-17] MEDS: ENOXAPARIN 30 MG/0.3 ML SYRINGE SUBCUT SCH (08:35)
[2017-08-17] MEDS ORDERED: OLANZapine 5 MG TABLET PO SCH (09:00)
[2017-08-17] MEDS ORDERED: MEMANTINE 10 MG TABLET PO SCH (09:00)
[2017-08-17 11:28] LABS: Troponin I Only 0.059 NG/ML (0.00-0.045)
[2017-08-17 14:10] LABS: Apearance,Urine Slightly Hazy (Clear); Urine Color Yellow (Yellow); Urine Specific Gravity 1.005 (1.001-1.035)
[2017-08-17 14:11] LABS: Bilirubin,Urine Negative (Negative); Blood, Urine Negative (Negative); Ketones,Urine Negative (Negative); Nitrite,Urine Negative (Negative); Urine Urobilinogen 0.2 EU/DL (0.2-1.0)
[2017-08-17] MEDS ORDERED: INSULIN GLARGINE 100 UNIT/ML SUBCUT SCH (20:00)
[2017-08-17] MEDS: SERTRALINE 50 MG TABLET PO SCH (21:01)
[2017-08-17] MEDS: ACETAMINOPHEN 325 MG TABLET PO PRN (22:34)
[2017-08-18] MEDS: ALBUTEROL/IPRATROPIUM 3 ML NEB RESP TX SCH ×4 (00:15→19:26)
[2017-08-18] MEDS: INSULIN REGULAR 100 UNIT/ML SUBCUT SCH ×6 (01:30→21:33)
[2017-08-18 05:59] LABS: Basophils % 0.2 % (0.0-0.8); Eosinophils # 0.1 10*3/uL (0.0-0.87); Eosinophils % 1.4 % (0.00-10.9); Hematocrit 26.8 VOL% (35.7-47.0); Hemoglobin 8.5 GM/DL (12.0-16.0); Immature Granulocytes % 0.5 %; Immature Granulocytes Absolute 0.03 #; Lymphocytes # 2.6 10*3/uL (1.4-4.0); Lymphocytes % 40.3 % (21.3-54.2); Mean Corpuscular HGB Conc 31.7 GM/DL (32-36); Mean Corpuscular Hemoglobin 30 PG (27-34); Mean Corpuscular Volume 93.1 FL (87-102); Mean Platelet Volume 10.9 FL (9.6-12.0); Monocytes # 0.6 10*3/uL (0.11-0.8); Monocytes % 9.8 % (1.7-12.7); Neutrophils # 3.1 10*3/uL (1.4-7.4); Neutrophils % 47.8 % (38.7-73.9); Platelet Count 149 T/CUMM (130-400); Red Blood Count 2.88 MC/CUMM (3.8-5.5); White Blood Count 6.6 T/CUMM (4-12)
[2017-08-18 06:27] LABS: Albumin 2.9 G/DL (3.4-5.0); Bilirubin,Total 0.6 MG/DL (0.2-1.0); Calcium 8.2 MG/DL (8.5-10.1); Osmolality,Calculated 291.7 MOS/KG (273-304); Potassium 5.6 MMOL/L (3.5-5.1); Total Protein 5.6 G/DL (6.4-8.3)
[2017-08-18] MEDS: FUROSEMIDE 20 MG TABLET PO SCH (06:40)
[2017-08-18] MEDS: BISACODYL 10 MG SUPP RECTAL SCH ×3 (06:41→21:34)
[2017-08-18] MEDS ORDERED: SODIUM POLYSTYRENE SULFATE 15 GM/60 ML BOTTLE PO ONE (07:25)
[2017-08-18] MEDS: PANTOPRAZOLE 40 MG TABLET PO SCH ×3 (07:37→21:33)
[2017-08-18] MEDS: ATORVASTATIN 80 MG TABLET PO SCH (07:37)
[2017-08-18] MEDS: MULTIVITAMIN (CENTRUM) TABLET PO SCH ×2 (07:37→08:31)
[2017-08-18] MEDS: CLOPIDOGREL 75 MG TABLET PO SCH (07:37)
[2017-08-18] MEDS: FERROUS SULFATE 325 MG TABLET PO SCH (07:37)
[2017-08-18] MEDS: CARBIDOPA/LEVODOPA 25-100 MG TABLET PO SCH ×4 (07:38→21:33)
[2017-08-18] MEDS: ISOSORBIDE MONONITRATE 30 MG TABLET PO SCH (07:38)
[2017-08-18] MEDS: RIVASTIGMINE 4.6 MG/24 HR PATCH TRANSDERM SCH ×2 (07:38→08:31)
[2017-08-18] MEDS: INSULIN GLARGINE 100 UNIT/ML SUBCUT SCH (07:38)
[2017-08-18] MEDS: ASPIRIN EC 81 MG TABLET PO SCH ×2 (07:38→08:31)
[2017-08-18] MEDS: amLODIPine 5 MG TABLET PO SCH (07:38)
[2017-08-18] MEDS: ENOXAPARIN 30 MG/0.3 ML SYRINGE SUBCUT SCH ×2 (07:39→08:32)
[2017-08-18] MEDS: OLANZapine 2.5 MG TABLET PO SCH (08:32)
[2017-08-18] MEDS ORDERED: SODIUM CHLORIDE 0.9% 1,000 ML IV SCH (09:00)
[2017-08-18] MEDS: ACETAMINOPHEN 325 MG TABLET PO PRN (09:52)
[2017-08-18] MEDS ORDERED: FUROSEMIDE 40 MG/4 ML VIAL IV ONE ×2 (15:12→15:58)
[2017-08-18] MEDS ORDERED: FUROSEMIDE 100 MG/10 ML VIAL ONE (15:35)
[2017-08-18 15:40] LABS: ABG Base Excess -7.4 MMOL/L (-2.5-2.5); ABG HCO3 18.3 MMOL/L (20-26); ABG Oxygen Saturation 89.2 % (95-100); ABG PO2 72.4 MM HG (80-95)
[2017-08-18 15:44] LABS: ABG PCO2 77.3 MM HG (35-48)
[2017-08-18] MEDS ORDERED: SUCCINYLCHOLINE 200 MG/10 ML VIAL ONE (16:42)
[2017-08-18] MEDS ORDERED: PROPOFOL 200 MG/20 ML VIAL IV ONE (16:43)
[2017-08-18] MEDS: PROPOFOL 1,000 MG/100 ML BOTTLE IV SCH ×2 (16:51→21:34)
[2017-08-18] MEDS ORDERED: PROPOFOL 1,000 MG/100 ML BOTTLE IV SCH (17:00)
[2017-08-18] MEDS ORDERED: NOREPINEPHRINE 8 MG in SODIUM CHLORIDE 0.9% 242 ML IV PRN (17:02)
[2017-08-18] MEDS ORDERED: NOREPINEPHRINE 4 MG/4 ML VIAL IV ONE (17:04)
[2017-08-18] MEDS ORDERED: DOPamine 800 MG/250 ML PREMIX IV PRN (17:08)
[2017-08-18] MEDS: ENOXAPARIN 100 MG/ML SYRINGE SUBCUT SCH (17:38)
[2017-08-18] MEDS: CEFTAROLINE 200 MG in SODIUM CHLORIDE 0.9% 100 ML IV SCH (17:39)
[2017-08-18 17:41] LABS: Troponin I Only 0.035 NG/ML (0.00-0.045)
[2017-08-18 17:47] LABS: ABG HCO3 20.3 MMOL/L (20-26); ABG Oxygen Saturation 99.9 % (95-100); ABG PCO2 45.2 MM HG (35-48); ABG PH 7.286 (7.35-7.45); Allen Test Positive; Pt O2 Delivery Device Ventilator
[2017-08-18 19:25] LABS: Apearance,Urine Clear (Clear); Glucose,Urine (UA) 50 mg/dL (Negative); Ketones,Urine Negative (Negative); Nitrite,Urine Negative (Negative); Protein,Urine 100 MG/DL; Urine Color Yellow (Yellow); Urine Specific Gravity 1.005 (1.001-1.035)
[2017-08-18 19:26] LABS: Bilirubin,Urine Negative (Negative); Blood, Urine Negative (Negative)
[2017-08-18 19:31] LABS: Bacteria,Urine Few /HPF (Few); RBC,Urine 0-3 /HPF (0-4); Transitional Epi Cells,Urine Few /HPF (<1)
[2017-08-18] MEDS: SERTRALINE 50 MG TABLET PO SCH (21:33)
[2017-08-18 23:17] LABS: Troponin I Only 0.166 NG/ML (0.00-0.045)
[2017-08-19] MEDS: FUROSEMIDE 40 MG/4 ML VIAL IV SCH ×4 (00:15→23:48)
[2017-08-19] MEDS: ALBUTEROL/IPRATROPIUM 3 ML NEB RESP TX SCH ×4 (00:38→19:47)
[2017-08-19] MEDS: INSULIN REGULAR 100 UNIT/ML SUBCUT SCH ×7 (00:55→23:48)
[2017-08-19] MEDS: PROPOFOL 1,000 MG/100 ML BOTTLE IV SCH ×5 (02:03→22:36)
[2017-08-19 04:28] LABS: Basophils % 0.1 % (0.0-0.8); Eosinophils % 0.5 % (0.00-10.9); Hematocrit 28.8 VOL% (35.7-47.0); Hemoglobin 9.5 GM/DL (12.0-16.0); Immature Granulocytes % 0.4 %; Immature Granulocytes Absolute 0.03 #; Lymphocytes # 2.3 10*3/uL (1.4-4.0); Lymphocytes % 27.8 % (21.3-54.2); Mean Corpuscular Hemoglobin 29 PG (27-34); Mean Corpuscular Volume 88.9 FL (87-102); Mean Platelet Volume 11.5 FL (9.6-12.0); Monocytes # 0.6 10*3/uL (0.11-0.8); Neutrophils # 5.3 10*3/uL (1.4-7.4); Neutrophils % 64.2 % (38.7-73.9); Platelet Count 142 T/CUMM (130-400); Red Blood Count 3.24 MC/CUMM (3.8-5.5); Red Cell Distribution Width 14.3 % (9.3-17.3); White Blood Count 8.2 T/CUMM (4-12)
[2017-08-19 04:29] LABS: Allen Test Positive; Pt O2 Delivery Device Ventilator
[2017-08-19 04:30] LABS: ABG Base Excess 1.3 MMOL/L (-2.5-2.5); ABG HCO3 25.6 MMOL/L (20-26); ABG Oxygen Saturation 99.3 % (95-100); ABG PCO2 21.5 MM HG (35-48); ABG TCO2 18.8 MMOL/L (23-27)
[2017-08-19 04:33] LABS: ABG PH 7.603 (7.35-7.45)
[2017-08-19 05:13] LABS: Troponin I Only 0.216 NG/ML (0.00-0.045)
[2017-08-19 05:46] LABS: Calcium 8.1 MG/DL (8.5-10.1); Osmolality,Calculated 288.8 MOS/KG (273-304); Potassium 4.1 MMOL/L (3.5-5.1)
[2017-08-19] MEDS: CEFTAROLINE 200 MG in SODIUM CHLORIDE 0.9% 100 ML IV SCH ×2 (05:46→18:20)
[2017-08-19] MEDS: BISACODYL 10 MG SUPP RECTAL SCH ×3 (05:46→21:08)
[2017-08-19] MEDS: CLOPIDOGREL 75 MG TABLET PO SCH (09:21)
[2017-08-19] MEDS: MULTIVITAMIN (CENTRUM) TABLET PO SCH (09:22)
[2017-08-19] MEDS: amLODIPine 5 MG TABLET PO SCH (09:22)
[2017-08-19] MEDS: PANTOPRAZOLE 40 MG TABLET PO SCH ×2 (09:22→20:23)
[2017-08-19] MEDS: FERROUS SULFATE 325 MG TABLET PO SCH (09:23)
[2017-08-19] MEDS: ATORVASTATIN 80 MG TABLET PO SCH (09:23)
[2017-08-19] MEDS: ISOSORBIDE MONONITRATE 30 MG TABLET PO SCH (09:23)
[2017-08-19] MEDS: ASPIRIN EC 81 MG TABLET PO SCH (09:23)
[2017-08-19] MEDS: CARBIDOPA/LEVODOPA 25-100 MG TABLET PO SCH ×3 (09:24→20:24)
[2017-08-19] MEDS: RIVASTIGMINE 4.6 MG/24 HR PATCH TRANSDERM SCH (09:26)
[2017-08-19 11:15] LABS: Glucose,Urine (UA) 150 mg/dL (Negative); Protein,Urine 100 MG/DL
[2017-08-19] MEDS: ENOXAPARIN 100 MG/ML SYRINGE SUBCUT SCH (16:30)
[2017-08-19] MEDS: SERTRALINE 50 MG TABLET PO SCH (20:22)
[2017-08-20] MEDS: ALBUTEROL/IPRATROPIUM 3 ML NEB RESP TX SCH ×4 (00:55→19:45)
[2017-08-20] MEDS: PROPOFOL 1,000 MG/100 ML BOTTLE IV SCH ×2 (03:17→19:34)
[2017-08-20 03:30] LABS: ABG Base Excess -1.1 MMOL/L (-2.5-2.5); ABG HCO3 23.5 MMOL/L (20-26); ABG Oxygen Saturation 99.3 % (95-100); ABG PCO2 33.2 MM HG (35-48); ABG TCO2 20.7 MMOL/L (23-27); Allen Test Positive; Pt O2 Delivery Device Ventilator
[2017-08-20] MEDS: INSULIN REGULAR 100 UNIT/ML SUBCUT SCH ×5 (04:11→20:13)
[2017-08-20 05:05] LABS: Basophils % 0.2 % (0.0-0.8); Eosinophils # 0.1 10*3/uL (0.0-0.87); Hematocrit 24.9 VOL% (35.7-47.0); Hemoglobin 8.1 GM/DL (12.0-16.0); Immature Granulocytes % 0.5 %; Immature Granulocytes Absolute 0.03 #; Lymphocytes # 1.5 10*3/uL (1.4-4.0); Mean Corpuscular HGB Conc 32.5 GM/DL (32-36); Mean Corpuscular Hemoglobin 30 PG (27-34); Mean Corpuscular Volume 90.5 FL (87-102); Mean Platelet Volume 11.5 FL (9.6-12.0); Monocytes # 0.4 10*3/uL (0.11-0.8); Monocytes % 7.2 % (1.7-12.7); Neutrophils # 3.9 10*3/uL (1.4-7.4); Neutrophils % 66.1 % (38.7-73.9); Platelet Count 136 T/CUMM (130-400); Red Blood Count 2.75 MC/CUMM (3.8-5.5); Red Cell Distribution Width 14.9 % (9.3-17.3); White Blood Count 5.9 T/CUMM (4-12)
[2017-08-20 05:35] LABS: Prealbumin 16.8 MG/DL (20-40)
[2017-08-20 05:36] LABS: Calcium 8.2 MG/DL (8.5-10.1); Osmolality,Calculated 294.8 MOS/KG (273-304); Osmolality,Calculated 295.8 MOS/KG (273-304); Potassium 3.8 MMOL/L (3.5-5.1)
[2017-08-20] MEDS: CEFTAROLINE 200 MG in SODIUM CHLORIDE 0.9% 100 ML IV SCH ×2 (05:45→18:23)
[2017-08-20] MEDS: BISACODYL 10 MG SUPP RECTAL SCH ×3 (05:49→21:08)
[2017-08-20] MEDS: FERROUS SULFATE 325 MG TABLET PO SCH (08:14)
[2017-08-20] MEDS: amLODIPine 5 MG TABLET PO SCH (08:15)
[2017-08-20] MEDS: ATORVASTATIN 80 MG TABLET PO SCH (08:15)
[2017-08-20] MEDS: CLOPIDOGREL 75 MG TABLET PO SCH (08:16)
[2017-08-20] MEDS: ISOSORBIDE MONONITRATE 30 MG TABLET PO SCH (08:19)
[2017-08-20] MEDS: FUROSEMIDE 40 MG/4 ML VIAL IV SCH (08:37)
[2017-08-20] MEDS: MULTIVITAMIN (CENTRUM) TABLET PO SCH (09:26)
[2017-08-20] MEDS: ASPIRIN EC 81 MG TABLET PO SCH (09:27)
[2017-08-20] MEDS: PANTOPRAZOLE 40 MG TABLET PO SCH ×2 (09:27→20:12)
[2017-08-20] MEDS: CARBIDOPA/LEVODOPA 25-100 MG TABLET PO SCH ×3 (09:28→20:12)
[2017-08-20] MEDS: RIVASTIGMINE 4.6 MG/24 HR PATCH TRANSDERM SCH (09:30)
[2017-08-20] MEDS: OLANZapine 2.5 MG TABLET PO SCH (12:35)
[2017-08-20] MEDS: ASCORBIC ACID 500 MG TABLET PO SCH ×2 (14:56→20:13)
[2017-08-20] MEDS ORDERED: FUROSEMIDE 40 MG/4 ML VIAL IV SCH (16:00)
[2017-08-20] MEDS: ENOXAPARIN 100 MG/ML SYRINGE SUBCUT SCH (17:17)
[2017-08-20] MEDS: SERTRALINE 50 MG TABLET PO SCH (20:13)
[2017-08-20] MEDS: INSULIN GLARGINE 100 UNIT/ML SUBCUT SCH (20:13)
[2017-08-21] MEDS: INSULIN REGULAR 100 UNIT/ML SUBCUT SCH ×6 (00:24→21:45)
[2017-08-21] MEDS: ALBUTEROL/IPRATROPIUM 3 ML NEB RESP TX SCH ×4 (00:30→19:44)
[2017-08-21] MEDS: PROPOFOL 1,000 MG/100 ML BOTTLE IV SCH ×2 (00:32→18:08)
[2017-08-21 04:11] LABS: ABG Base Excess 1.3 MMOL/L (-2.5-2.5); ABG HCO3 24.2 MMOL/L (20-26); ABG Oxygen Saturation 98.5 % (95-100); ABG PCO2 31.9 MM HG (35-48); ABG PH 7.498 (7.35-7.45); ABG PO2 163.3 MM HG (80-95); ABG TCO2 25.2 MMOL/L (23-27)
[2017-08-21 04:43] LABS: Basophils % 0.2 % (0.0-0.8); Eosinophils # 0.1 10*3/uL (0.0-0.87); Eosinophils % 1.8 % (0.00-10.9); Hematocrit 27.1 VOL% (35.7-47.0); Hemoglobin 8.7 GM/DL (12.0-16.0); Immature Granulocytes % 0.5 %; Immature Granulocytes Absolute 0.03 #; Lymphocytes # 1.3 10*3/uL (1.4-4.0); Lymphocytes % 19.9 % (21.3-54.2); Mean Corpuscular HGB Conc 32.1 GM/DL (32-36); Mean Corpuscular Hemoglobin 29 PG (27-34); Mean Corpuscular Volume 91.6 FL (87-102); Mean Platelet Volume 11.7 FL (9.6-12.0); Monocytes # 0.5 10*3/uL (0.11-0.8); Monocytes % 8.3 % (1.7-12.7); Neutrophils # 4.4 10*3/uL (1.4-7.4); Neutrophils % 69.3 % (38.7-73.9); Platelet Count 133 T/CUMM (130-400); Red Blood Count 2.96 MC/CUMM (3.8-5.5); Red Cell Distribution Width 14.9 % (9.3-17.3); White Blood Count 6.3 T/CUMM (4-12)
[2017-08-21 05:03] LABS: Calcium 8.2 MG/DL (8.5-10.1); Osmolality,Calculated 293.2 MOS/KG (273-304)
[2017-08-21] MEDS: CEFTAROLINE 200 MG in SODIUM CHLORIDE 0.9% 100 ML IV SCH ×2 (05:04→18:36)
[2017-08-21] MEDS: BISACODYL 10 MG SUPP RECTAL SCH ×3 (05:04→21:46)
[2017-08-21] MEDS: FUROSEMIDE 40 MG/4 ML VIAL IV SCH (10:00)
[2017-08-21] MEDS: CLOPIDOGREL 75 MG TABLET PO SCH (10:03)
[2017-08-21] MEDS: ASCORBIC ACID 500 MG TABLET PO SCH ×2 (10:03→21:46)
[2017-08-21] MEDS: FERROUS SULFATE 325 MG TABLET PO SCH (10:03)
[2017-08-21] MEDS: ATORVASTATIN 80 MG TABLET PO SCH (10:03)
[2017-08-21] MEDS: ASPIRIN EC 81 MG TABLET PO SCH (10:03)
[2017-08-21] MEDS: MULTIVITAMIN (CENTRUM) TABLET PO SCH (10:04)
[2017-08-21] MEDS: amLODIPine 5 MG TABLET PO SCH (10:04)
[2017-08-21] MEDS: RIVASTIGMINE 4.6 MG/24 HR PATCH TRANSDERM SCH (10:05)
[2017-08-21] MEDS: CARBIDOPA/LEVODOPA 25-100 MG TABLET PO SCH ×3 (10:05→21:47)
[2017-08-21] MEDS: PANTOPRAZOLE 40 MG TABLET PO SCH ×2 (10:05→21:47)
[2017-08-21] MEDS: ISOSORBIDE MONONITRATE 30 MG TABLET PO SCH (10:05)
[2017-08-21] MEDS: ENOXAPARIN 100 MG/ML SYRINGE SUBCUT SCH (15:57)
[2017-08-21] MEDS: INSULIN GLARGINE 100 UNIT/ML SUBCUT SCH (21:45)
[2017-08-21] MEDS: SERTRALINE 50 MG TABLET PO SCH (21:46)
[2017-08-22] MEDS: INSULIN REGULAR 100 UNIT/ML SUBCUT SCH ×6 (00:25→20:21)
[2017-08-22] MEDS: ALBUTEROL/IPRATROPIUM 3 ML NEB RESP TX SCH ×4 (00:35→19:34)
[2017-08-22 04:48] LABS: Basophils % 0.2 % (0.0-0.8); Eosinophils # 0.2 10*3/uL (0.0-0.87); Eosinophils % 2.7 % (0.00-10.9); Hemoglobin 8.9 GM/DL (12.0-16.0); Immature Granulocytes % 0.3 %; Immature Granulocytes Absolute 0.02 #; Lymphocytes # 1.3 10*3/uL (1.4-4.0); Lymphocytes % 21.7 % (21.3-54.2); Mean Corpuscular Hemoglobin 30 PG (27-34); Mean Corpuscular Volume 90.3 FL (87-102); Mean Platelet Volume 10.9 FL (9.6-12.0); Monocytes # 0.7 10*3/uL (0.11-0.8); Monocytes % 11.7 % (1.7-12.7); Neutrophils # 3.7 10*3/uL (1.4-7.4); Neutrophils % 63.4 % (38.7-73.9); Platelet Count 160 T/CUMM (130-400); Red Blood Count 2.99 MC/CUMM (3.8-5.5); White Blood Count 5.9 T/CUMM (4-12)
[2017-08-22] MEDS: BISACODYL 10 MG SUPP RECTAL SCH ×3 (05:20→21:00)
[2017-08-22] MEDS: CEFTAROLINE 200 MG in SODIUM CHLORIDE 0.9% 100 ML IV SCH ×2 (05:20→16:36)
[2017-08-22 05:23] LABS: Calcium 8.2 MG/DL (8.5-10.1); Osmolality,Calculated 306.5 MOS/KG (273-304); Potassium 3.8 MMOL/L (3.5-5.1)
[2017-08-22] MEDS: FERROUS SULFATE 325 MG TABLET PO SCH (08:11)
[2017-08-22] MEDS: MULTIVITAMIN (CENTRUM) TABLET PO SCH (08:11)
[2017-08-22] MEDS: PANTOPRAZOLE 40 MG TABLET PO SCH ×2 (08:11→20:21)
[2017-08-22] MEDS: OLANZapine 2.5 MG TABLET PO SCH (08:12)
[2017-08-22] MEDS: CARBIDOPA/LEVODOPA 25-100 MG TABLET PO SCH ×3 (08:12→20:22)
[2017-08-22] MEDS: CLOPIDOGREL 75 MG TABLET PO SCH (08:12)
[2017-08-22] MEDS: ISOSORBIDE MONONITRATE 30 MG TABLET PO SCH (08:12)
[2017-08-22] MEDS: amLODIPine 5 MG TABLET PO SCH (08:12)
[2017-08-22] MEDS: ASCORBIC ACID 500 MG TABLET PO SCH ×2 (08:12→20:22)
[2017-08-22] MEDS: ATORVASTATIN 80 MG TABLET PO SCH (08:12)
[2017-08-22] MEDS: RIVASTIGMINE 4.6 MG/24 HR PATCH TRANSDERM SCH (08:12)
[2017-08-22] MEDS: ASPIRIN EC 81 MG TABLET PO SCH (08:12)
[2017-08-22] MEDS: FUROSEMIDE 40 MG/4 ML VIAL IV SCH (08:13)
[2017-08-22] MEDS: ENOXAPARIN 100 MG/ML SYRINGE SUBCUT SCH (16:35)
[2017-08-22] MEDS: INSULIN GLARGINE 100 UNIT/ML SUBCUT SCH (20:20)
[2017-08-22] MEDS: SERTRALINE 50 MG TABLET PO SCH (20:21)
[2017-08-22] MEDS: ACETAMINOPHEN 325 MG TABLET PO PRN (20:21)
[2017-08-22] MEDS: ZINC OXIDE PASTE 113 GM TUBE TOP SCH (20:23)
[2017-08-23] MEDS: INSULIN REGULAR 100 UNIT/ML SUBCUT SCH ×6 (00:31→21:22)
[2017-08-23] MEDS: ALBUTEROL/IPRATROPIUM 3 ML NEB RESP TX SCH ×4 (01:20→20:00)
[2017-08-23 05:12] LABS: Basophils % 0.2 % (0.0-0.8); Eosinophils # 0.2 10*3/uL (0.0-0.87); Eosinophils % 3.8 % (0.00-10.9); Hematocrit 25.8 VOL% (35.7-47.0); Hemoglobin 8.3 GM/DL (12.0-16.0); Immature Granulocytes % 0.4 %; Immature Granulocytes Absolute 0.02 #; Lymphocytes # 1.5 10*3/uL (1.4-4.0); Lymphocytes % 28.3 % (21.3-54.2); Mean Corpuscular HGB Conc 32.2 GM/DL (32-36); Mean Corpuscular Hemoglobin 29 PG (27-34); Mean Corpuscular Volume 90.2 FL (87-102); Mean Platelet Volume 11.4 FL (9.6-12.0); Monocytes # 0.6 10*3/uL (0.11-0.8); Monocytes % 11.6 % (1.7-12.7); Neutrophils # 2.9 10*3/uL (1.4-7.4); Neutrophils % 55.7 % (38.7-73.9); Platelet Count 171 T/CUMM (130-400); Red Blood Count 2.86 MC/CUMM (3.8-5.5); Red Cell Distribution Width 14.9 % (9.3-17.3); White Blood Count 5.3 T/CUMM (4-12)
[2017-08-23] MEDS: CEFTAROLINE 200 MG in SODIUM CHLORIDE 0.9% 100 ML IV SCH ×2 (05:24→16:09)
[2017-08-23 05:46] LABS: Calcium 8.4 MG/DL (8.5-10.1); Osmolality,Calculated 311.1 MOS/KG (273-304); Potassium 3.9 MMOL/L (3.5-5.1)
[2017-08-23] MEDS: BISACODYL 10 MG SUPP RECTAL SCH ×3 (05:51→23:07)
[2017-08-23] MEDS: ASPIRIN EC 81 MG TABLET PO SCH (09:06)
[2017-08-23] MEDS: AMPICILLIN 500 MG CAPSULE PO SCH (09:12)
[2017-08-23] MEDS: ATORVASTATIN 80 MG TABLET PO SCH (09:13)
[2017-08-23] MEDS: ASCORBIC ACID 500 MG TABLET PO SCH ×2 (09:13→21:20)
[2017-08-23] MEDS: amLODIPine 5 MG TABLET PO SCH (09:13)
[2017-08-23] MEDS: CLOPIDOGREL 75 MG TABLET PO SCH (09:13)
[2017-08-23] MEDS: FERROUS SULFATE 325 MG TABLET PO SCH (09:13)
[2017-08-23] MEDS: CARBIDOPA/LEVODOPA 25-100 MG TABLET PO SCH ×3 (09:13→21:20)
[2017-08-23] MEDS: ISOSORBIDE MONONITRATE 30 MG TABLET PO SCH (09:13)
[2017-08-23] MEDS: PANTOPRAZOLE 40 MG TABLET PO SCH ×2 (09:13→21:20)
[2017-08-23] MEDS: MULTIVITAMIN (CENTRUM) TABLET PO SCH (09:14)
[2017-08-23] MEDS: FUROSEMIDE 40 MG/4 ML VIAL IV SCH (09:14)
[2017-08-23] MEDS: RIVASTIGMINE 4.6 MG/24 HR PATCH TRANSDERM SCH (10:58)
[2017-08-23] MEDS: ZINC OXIDE PASTE 113 GM TUBE TOP SCH (12:09)
[2017-08-23] MEDS: ENOXAPARIN 30 MG/0.3 ML SYRINGE SUBCUT SCH (16:15)
[2017-08-23] MEDS: ACETAMINOPHEN 325 MG TABLET PO PRN (21:17)
[2017-08-23] MEDS: SERTRALINE 50 MG TABLET PO SCH (21:20)
[2017-08-23] MEDS: INSULIN GLARGINE 100 UNIT/ML SUBCUT SCH (21:23)
[2017-08-24] MEDS: ALBUTEROL/IPRATROPIUM 3 ML NEB RESP TX SCH ×4 (01:16→19:04)
[2017-08-24] MEDS: CEFTAROLINE 200 MG in SODIUM CHLORIDE 0.9% 100 ML IV SCH (04:59)
[2017-08-24 05:01] LABS: Basophils % 0.2 % (0.0-0.8); Eosinophils # 0.3 10*3/uL (0.0-0.87); Eosinophils % 4.3 % (0.00-10.9); Hematocrit 25.2 VOL% (35.7-47.0); Hemoglobin 8.3 GM/DL (12.0-16.0); Immature Granulocytes % 0.9 %; Immature Granulocytes Absolute 0.05 #; Lymphocytes # 1.2 10*3/uL (1.4-4.0); Lymphocytes % 21.1 % (21.3-54.2); Mean Corpuscular HGB Conc 32.9 GM/DL (32-36); Mean Corpuscular Hemoglobin 29 PG (27-34); Mean Corpuscular Volume 89.4 FL (87-102); Mean Platelet Volume 11.4 FL (9.6-12.0); Monocytes # 0.6 10*3/uL (0.11-0.8); Monocytes % 9.8 % (1.7-12.7); Neutrophils # 3.7 10*3/uL (1.4-7.4); Neutrophils % 63.7 % (38.7-73.9); Platelet Count 190 T/CUMM (130-400); Red Blood Count 2.82 MC/CUMM (3.8-5.5); Red Cell Distribution Width 14.4 % (9.3-17.3); White Blood Count 5.8 T/CUMM (4-12)
[2017-08-24 05:36] LABS: Calcium 8.3 MG/DL (8.5-10.1); Osmolality,Calculated 313.3 MOS/KG (273-304); Potassium 3.8 MMOL/L (3.5-5.1)
[2017-08-24] MEDS: BISACODYL 10 MG SUPP RECTAL SCH ×2 (08:01→14:12)
[2017-08-24] MEDS: ZINC OXIDE PASTE 113 GM TUBE TOP SCH ×2 (08:01→10:33)
[2017-08-24] MEDS: INSULIN REGULAR 100 UNIT/ML SUBCUT SCH ×6 (08:02→21:00)
[2017-08-24] MEDS: ENOXAPARIN 100 MG/ML SYRINGE SUBCUT SCH (08:28)
[2017-08-24] MEDS ORDERED: INSULIN GLARGINE 100 UNIT/ML SUBCUT SCH (08:34)
[2017-08-24] MEDS: CLOPIDOGREL 75 MG TABLET PO SCH (09:21)
[2017-08-24] MEDS: CARBIDOPA/LEVODOPA 25-100 MG TABLET PO SCH ×3 (09:22→21:00)
[2017-08-24] MEDS: ISOSORBIDE MONONITRATE 30 MG TABLET PO SCH (09:22)
[2017-08-24] MEDS: ASCORBIC ACID 500 MG TABLET PO SCH ×2 (09:22→20:58)
[2017-08-24] MEDS: ASPIRIN EC 81 MG TABLET PO SCH (09:22)
[2017-08-24] MEDS: ATORVASTATIN 80 MG TABLET PO SCH (09:22)
[2017-08-24] MEDS: OLANZapine 2.5 MG TABLET PO SCH (09:22)
[2017-08-24] MEDS: PANTOPRAZOLE 40 MG TABLET PO SCH ×2 (09:22→20:58)
[2017-08-24] MEDS: MULTIVITAMIN (CENTRUM) TABLET PO SCH (09:22)
[2017-08-24] MEDS: FERROUS SULFATE 325 MG TABLET PO SCH (09:22)
[2017-08-24] MEDS: amLODIPine 5 MG TABLET PO SCH (09:23)
[2017-08-24] MEDS: FUROSEMIDE 40 MG/4 ML VIAL IV SCH (09:26)
[2017-08-24] MEDS: AMPICILLIN 500 MG CAPSULE PO SCH (10:32)
[2017-08-24] MEDS: RIVASTIGMINE 4.6 MG/24 HR PATCH TRANSDERM SCH (10:33)
[2017-08-24] MEDS: ENOXAPARIN 30 MG/0.3 ML SYRINGE SUBCUT SCH (15:34)
[2017-08-24] MEDS: SERTRALINE 50 MG TABLET PO SCH (20:59)
[2017-08-25] MEDS: ALBUTEROL/IPRATROPIUM 3 ML NEB RESP TX SCH ×4 (00:04→20:09)
[2017-08-25] MEDS: BISACODYL 10 MG SUPP RECTAL SCH ×3 (05:36→14:59)
[2017-08-25] MEDS: ZINC OXIDE PASTE 113 GM TUBE TOP SCH ×3 (05:36→21:13)
[2017-08-25] MEDS ORDERED: INSULIN GLARGINE 100 UNIT/ML SUBCUT SCH (07:10)
[2017-08-25] MEDS ORDERED: INSULIN NPH 100 UNIT/ML SUBCUT ONE (07:30)
[2017-08-25] MEDS: ISOSORBIDE MONONITRATE 30 MG TABLET PO SCH (08:14)
[2017-08-25] MEDS: ASPIRIN EC 81 MG TABLET PO SCH (08:14)
[2017-08-25] MEDS: CARBIDOPA/LEVODOPA 25-100 MG TABLET PO SCH ×3 (08:14→21:08)
[2017-08-25] MEDS: MULTIVITAMIN (CENTRUM) TABLET PO SCH (08:14)
[2017-08-25] MEDS: CLOPIDOGREL 75 MG TABLET PO SCH (08:14)
[2017-08-25] MEDS: AMPICILLIN 500 MG CAPSULE PO SCH (08:14)
[2017-08-25] MEDS: PANTOPRAZOLE 40 MG TABLET PO SCH ×2 (08:14→21:08)
[2017-08-25] MEDS: ATORVASTATIN 80 MG TABLET PO SCH (08:14)
[2017-08-25] MEDS: ASCORBIC ACID 500 MG TABLET PO SCH ×2 (08:14→21:08)
[2017-08-25] MEDS: INSULIN REGULAR 100 UNIT/ML SUBCUT SCH ×4 (08:15→21:07)
[2017-08-25] MEDS: FERROUS SULFATE 325 MG TABLET PO SCH (08:15)
[2017-08-25] MEDS: amLODIPine 5 MG TABLET PO SCH (08:15)
[2017-08-25] MEDS: FUROSEMIDE 40 MG/4 ML VIAL IV SCH (08:16)
[2017-08-25] MEDS: RIVASTIGMINE 4.6 MG/24 HR PATCH TRANSDERM SCH (08:16)
[2017-08-25] MEDS: ENOXAPARIN 30 MG/0.3 ML SYRINGE SUBCUT SCH (16:36)
[2017-08-25] MEDS: SERTRALINE 50 MG TABLET PO SCH (21:08)
[2017-08-26] MEDS: ALBUTEROL/IPRATROPIUM 3 ML NEB RESP TX SCH ×2 (01:06→07:37)
[2017-08-26] MEDS: BISACODYL 10 MG SUPP RECTAL SCH ×2 (05:13→07:38)
[2017-08-26 06:15] LABS: Basophils % 0.2 % (0.0-0.8); Eosinophils # 0.3 10*3/uL (0.0-0.87); Eosinophils % 4.9 % (0.00-10.9); Hematocrit 25.6 VOL% (35.7-47.0); Hemoglobin 8.2 GM/DL (12.0-16.0); Immature Granulocytes % 1.1 %; Immature Granulocytes Absolute 0.06 #; Lymphocytes # 1.3 10*3/uL (1.4-4.0); Lymphocytes % 23.6 % (21.3-54.2); Mean Corpuscular Hemoglobin 29 PG (27-34); Mean Corpuscular Volume 91.8 FL (87-102); Mean Platelet Volume 10.9 FL (9.6-12.0); Monocytes # 0.5 10*3/uL (0.11-0.8); Monocytes % 9.5 % (1.7-12.7); Neutrophils # 3.5 10*3/uL (1.4-7.4); Neutrophils % 60.7 % (38.7-73.9); Platelet Count 206 T/CUMM (130-400); Red Blood Count 2.79 MC/CUMM (3.8-5.5); Red Cell Distribution Width 14.2 % (9.3-17.3); White Blood Count 5.7 T/CUMM (4-12)
[2017-08-26 06:44] LABS: Calcium 8.8 MG/DL (8.5-10.1); Osmolality,Calculated 310.4 MOS/KG (273-304); Potassium 4.1 MMOL/L (3.5-5.1)
[2017-08-26 07:59] VITALS: BP 138/64
[2017-08-26] MEDS: FUROSEMIDE 40 MG/4 ML VIAL IV SCH (09:45)
[2017-08-26] MEDS: MULTIVITAMIN (CENTRUM) TABLET PO SCH (09:45)
[2017-08-26] MEDS: PANTOPRAZOLE 40 MG TABLET PO SCH (09:45)
[2017-08-26] MEDS: OLANZapine 2.5 MG TABLET PO SCH (09:45)
[2017-08-26] MEDS: CLOPIDOGREL 75 MG TABLET PO SCH (09:45)
[2017-08-26] MEDS: FERROUS SULFATE 325 MG TABLET PO SCH (09:45)
[2017-08-26] MEDS: amLODIPine 5 MG TABLET PO SCH (09:46)
[2017-08-26] MEDS: CARBIDOPA/LEVODOPA 25-100 MG TABLET PO SCH (09:46)
[2017-08-26] MEDS: ATORVASTATIN 80 MG TABLET PO SCH (09:46)
[2017-08-26] MEDS: ASCORBIC ACID 500 MG TABLET PO SCH (09:46)
[2017-08-26] MEDS: ISOSORBIDE MONONITRATE 30 MG TABLET PO SCH (09:46)
[2017-08-26] MEDS: ASPIRIN EC 81 MG TABLET PO SCH (09:46)
[2017-08-26] MEDS: INSULIN REGULAR 100 UNIT/ML SUBCUT SCH ×2 (09:46→12:35)
[2017-08-26] MEDS: AMPICILLIN 500 MG CAPSULE PO SCH (09:50)
[2017-08-26] MEDS: ZINC OXIDE PASTE 113 GM TUBE TOP SCH (09:51)
[2017-08-26] MEDS: RIVASTIGMINE 4.6 MG/24 HR PATCH TRANSDERM SCH (11:23)
== END 2017-08-26 13:30 | DRG 208 ==
LOC: EDUNIT# → EDBD → N.ED 20:01 → N.EDINP 20:01 → N.TELES 23:15 → N.CC 08-18 16:13 → SUATTDRO 08-18 16:14 → N.TELES 08-22 20:43
PROVIDERS: ADMIT Hospitalist; ATTEND Hospitalist

== ENCOUNTER 2017-09-09 08:17 | Inpatient (IN) ==
[2017-09-09] MEDS ORDERED: FUROSEMIDE 100 MG/10 ML VIAL IV STA (10:03)
[2017-09-09] MEDS ORDERED: methylPREDNISolone SOD SUC 125 MG/2 ML VIAL IV STA (10:03)
[2017-09-09] MEDS ORDERED: ONDANSETRON 4 MG/2 ML VIAL IV STA (10:03)
[2017-09-09 10:19] LABS: Basophils % 0.1 % (0.0-0.8); Eosinophils # 0.1 10*3/uL (0.0-0.87); Eosinophils % 0.8 % (0.00-10.9); Hematocrit 31.5 VOL% (35.7-47.0); Immature Granulocytes % 0.6 %; Immature Granulocytes Absolute 0.09 #; Lymphocytes # 0.9 10*3/uL (1.4-4.0); Lymphocytes % 5.7 % (21.3-54.2); Mean Corpuscular HGB Conc 31.7 GM/DL (32-36); Mean Corpuscular Hemoglobin 30 PG (27-34); Mean Corpuscular Volume 93.5 FL (87-102); Mean Platelet Volume 11.1 FL (9.6-12.0); Monocytes # 0.7 10*3/uL (0.11-0.8); Monocytes % 4.1 % (1.7-12.7); Neutrophils # 13.9 10*3/uL (1.4-7.4); Neutrophils % 88.7 % (38.7-73.9); Platelet Count 195 T/CUMM (130-400); Red Blood Count 3.37 MC/CUMM (3.8-5.5); Red Cell Distribution Width 15.1 % (9.3-17.3); White Blood Count 15.7 T/CUMM (4-12)
[2017-09-09 10:24] LABS: PT Patient Result 10.2 SECS
[2017-09-09 10:30] LABS: Alanine Aminotransferase 16 U/L (13-56); Albumin 3.2 G/DL (3.4-5.0); Alkaline Phosphatase 85 U/L (45-117); Aspartate Amino Transferase 26 U/L (0-37); Bilirubin,Total < 0.39 MG/DL (0.2-1.0); Blood Urea Nitrogen 46 MG/DL (7-18); Glucose 124 MG/DL (74-106); Osmolality,Calculated 291.4 MOS/KG (273-304); Potassium 5.1 MMOL/L (3.5-5.1); Sodium 140 MMOL/L (136-145); Total Protein 7.4 G/DL (6.4-8.3)
[2017-09-09] MEDS ORDERED: ALBUTEROL 2.5 MG/3 ML NEB RESP TX SCH (10:30)
[2017-09-09 10:43] LABS: ABG Base Excess 0.4 MMOL/L (-2.5-2.5); ABG HCO3 24.7 MMOL/L (20-26); ABG Oxygen Saturation 95.3 % (95-100); ABG PCO2 42.6 MM HG (35-48); ABG PH 7.385 (7.35-7.45); ABG PO2 71.9 MM HG (80-95); ABG TCO2 23.4 MMOL/L (23-27)
[2017-09-09 11:29] LABS: Apearance,Urine CLEAR (Clear); Bacteria,Urine Occasional /HPF (Few); Bilirubin,Urine Negative (Negative); Blood, Urine Negative (Negative); Glucose,Urine (UA) Negative (Negative); Ketones,Urine Negative (Negative); Mucus,Urine Occasional /LPF (Occasional); Nitrite,Urine Negative (Negative); Protein,Urine 100 MG/DL; RBC,Urine <1 /HPF (0-4); Squamous Epithelial Cell,Urine Occasional /HPF (0-10); Urine Color Straw (Yellow); Urine Specific Gravity 1.008 (1.001-1.035); Urine Urobilinogen < 2.0 EU/DL (0.2-1.0); WBC,Urine <1 /HPF (0-6)
[2017-09-09] MEDS ORDERED: MORPHINE 4 MG/1 ML VIAL IV PRN (14:41)
[2017-09-09] MEDS ORDERED: ONDANSETRON 4 MG/2 ML VIAL IV PRN (14:41)
[2017-09-09] MEDS ORDERED: PROMETHAZINE 25 MG/1 ML VIAL IM PRN (14:41)
[2017-09-09] MEDS ORDERED: GLUCAGON 1 MG VIAL IM PRN (14:41)
[2017-09-09] MEDS ORDERED: DEXTROSE 50% 25 GM/50 ML VIAL IV PRN (14:41)
[2017-09-09] MEDS: CARBIDOPA/LEVODOPA 25-100 MG TABLET PO SCH ×2 (15:17→21:48)
[2017-09-09] MEDS: FUROSEMIDE 40 MG TABLET PO SCH (16:17)
[2017-09-09] MEDS: INSULIN REGULAR 100 UNIT/ML SUBCUT SCH ×2 (18:18→22:38)
[2017-09-09] MEDS: FERROUS SULFATE 325 MG TABLET PO SCH (21:47)
[2017-09-09] MEDS: DOCUSATE SODIUM 100 MG CAPSULE PO SCH (21:47)
[2017-09-09] MEDS: SERTRALINE 50 MG TABLET PO SCH (21:48)
[2017-09-09] MEDS: ATORVASTATIN 80 MG TABLET PO SCH (21:48)
[2017-09-09] MEDS: ENOXAPARIN 30 MG/0.3 ML SYRINGE SUBCUT SCH (21:49)
[2017-09-09] MEDS: INSULIN GLARGINE 100 UNIT/ML SUBCUT SCH (22:36)
[2017-09-09 22:55] LABS: Troponin I Only 0.236 NG/ML (0.00-0.045)
[2017-09-10] MEDS: amLODIPine 5 MG TABLET PO SCH (09:38)
[2017-09-10] MEDS: DOCUSATE SODIUM 100 MG CAPSULE PO SCH ×2 (09:39→20:59)
[2017-09-10] MEDS: FUROSEMIDE 40 MG TABLET PO SCH ×2 (09:39→17:45)
[2017-09-10] MEDS: PANTOPRAZOLE 40 MG TABLET PO SCH (09:39)
[2017-09-10] MEDS: CLOPIDOGREL 75 MG TABLET PO SCH (09:39)
[2017-09-10] MEDS: FERROUS SULFATE 325 MG TABLET PO SCH ×2 (09:39→21:02)
[2017-09-10] MEDS: ISOSORBIDE MONONITRATE 30 MG TABLET PO SCH (09:39)
[2017-09-10] MEDS: CARBIDOPA/LEVODOPA 25-100 MG TABLET PO SCH ×3 (09:39→21:07)
[2017-09-10] MEDS: INSULIN GLARGINE 100 UNIT/ML SUBCUT SCH ×2 (09:39→20:58)
[2017-09-10] MEDS: ASPIRIN EC 81 MG TABLET PO SCH (09:39)
[2017-09-10] MEDS: RIVASTIGMINE 4.6 MG/24 HR PATCH TRANSDERM SCH (09:41)
[2017-09-10] MEDS: INSULIN REGULAR 100 UNIT/ML SUBCUT SCH ×4 (09:42→21:02)
[2017-09-10 09:45] LABS: Calcium 8.8 MG/DL (8.5-10.1); Osmolality,Calculated 294.8 MOS/KG (273-304); Potassium 5.9 MMOL/L (3.5-5.1)
[2017-09-10] MEDS ORDERED: SODIUM POLYSTYRENE SULFATE 15 GM/60 ML BOTTLE PO ONE (11:37)
[2017-09-10] MEDS: INSULIN LISPRO 100 UNIT/ML SUBCUT SCH (13:34)
[2017-09-10] MEDS: ENOXAPARIN 30 MG/0.3 ML SYRINGE SUBCUT SCH (21:02)
[2017-09-10] MEDS: SERTRALINE 50 MG TABLET PO SCH (21:02)
[2017-09-10] MEDS: ATORVASTATIN 80 MG TABLET PO SCH (21:06)
[2017-09-11] MEDS: INSULIN REGULAR 100 UNIT/ML SUBCUT SCH ×3 (06:38→18:20)
[2017-09-11 07:20] LABS: Basophils % 0.1 % (0.0-0.8); Eosinophils # 0.1 10*3/uL (0.0-0.87); Eosinophils % 1.3 % (0.00-10.9); Hematocrit 27.1 VOL% (35.7-47.0); Hemoglobin 8.4 GM/DL (12.0-16.0); Immature Granulocytes % 0.4 %; Immature Granulocytes Absolute 0.03 #; Lymphocytes % 28.8 % (21.3-54.2); Mean Corpuscular Hemoglobin 30 PG (27-34); Mean Corpuscular Volume 95.8 FL (87-102); Mean Platelet Volume 10.8 FL (9.6-12.0); Monocytes # 0.5 10*3/uL (0.11-0.8); Monocytes % 6.6 % (1.7-12.7); Neutrophils # 4.3 10*3/uL (1.4-7.4); Neutrophils % 62.8 % (38.7-73.9); Platelet Count 151 T/CUMM (130-400); Red Blood Count 2.83 MC/CUMM (3.8-5.5); Red Cell Distribution Width 14.6 % (9.3-17.3); White Blood Count 6.9 T/CUMM (4-12)
[2017-09-11 07:53] LABS: Calcium 8.5 MG/DL (8.5-10.1); Osmolality,Calculated 297.1 MOS/KG (273-304); Potassium 4.9 MMOL/L (3.5-5.1)
[2017-09-11] MEDS: ISOSORBIDE MONONITRATE 30 MG TABLET PO SCH (09:55)
[2017-09-11] MEDS: INSULIN GLARGINE 100 UNIT/ML SUBCUT SCH (09:56)
[2017-09-11] MEDS: ASPIRIN EC 81 MG TABLET PO SCH (09:56)
[2017-09-11] MEDS: FUROSEMIDE 20 MG TABLET PO SCH (09:57)
[2017-09-11] MEDS: amLODIPine 5 MG TABLET PO SCH (09:57)
[2017-09-11] MEDS: PANTOPRAZOLE 40 MG TABLET PO SCH (09:58)
[2017-09-11] MEDS: CARBIDOPA/LEVODOPA 25-100 MG TABLET PO SCH ×3 (09:59→20:42)
[2017-09-11] MEDS: CLOPIDOGREL 75 MG TABLET PO SCH (09:59)
[2017-09-11] MEDS: FERROUS SULFATE 325 MG TABLET PO SCH ×2 (10:02→20:42)
[2017-09-11] MEDS: DOCUSATE SODIUM 100 MG CAPSULE PO SCH ×2 (10:03→20:42)
[2017-09-11] MEDS ORDERED: INSULIN GLARGINE 100 UNIT/ML SUBCUT SCH ×2 (11:19)
[2017-09-11] MEDS ORDERED: SODIUM CHLORIDE 0.65% NASAL SPRAY 45 ML BOTTLE BOTH NARES PRN (11:25)
[2017-09-11] MEDS: INSULIN LISPRO 100 UNIT/ML SUBCUT SCH (12:20)
[2017-09-11] MEDS: RIVASTIGMINE 4.6 MG/24 HR PATCH TRANSDERM SCH (12:29)
[2017-09-11] MEDS: ZINC OXIDE PASTE 113 GM TUBE TOP SCH ×2 (12:29→20:42)
[2017-09-11] MEDS ORDERED: NITROGLYCERIN SL 0.4 MG TABLET SL PRN (15:46)
[2017-09-11] MEDS ORDERED: ISOSORBIDE MONONITRATE 60 MG TABLET PO SCH (15:46)
[2017-09-11] MEDS ORDERED: ALUMINUM/MAGNES/SIMETH MAX STR 30 ML UDCUP PO PRN (15:54)
[2017-09-11] MEDS ORDERED: ALUM/MAG/SIMETH/LIDO VISC 1:1 30 ML BOTTLE PO PRN (15:54)
[2017-09-11] MEDS ORDERED: MAGNESIUM HYDROXIDE SUSP 30 ML UDCUP PO PRN (15:54)
[2017-09-11 16:33] LABS: Troponin I Only 0.096 NG/ML (0.00-0.045)
[2017-09-11] MEDS: ATORVASTATIN 80 MG TABLET PO SCH (20:42)
[2017-09-11] MEDS: ENOXAPARIN 30 MG/0.3 ML SYRINGE SUBCUT SCH (20:42)
[2017-09-11] MEDS: SERTRALINE 50 MG TABLET PO SCH (20:43)
[2017-09-12 07:06] LABS: Basophils % 0.3 % (0.0-0.8); Eosinophils # 0.1 10*3/uL (0.0-0.87); Eosinophils % 2.1 % (0.00-10.9); Immature Granulocytes % 0.5 %; Immature Granulocytes Absolute 0.03 #; Lymphocytes # 1.6 10*3/uL (1.4-4.0); Lymphocytes % 24.8 % (21.3-54.2); Mean Corpuscular Hemoglobin 30 PG (27-34); Mean Corpuscular Volume 95.1 FL (87-102); Mean Platelet Volume 10.8 FL (9.6-12.0); Monocytes # 0.5 10*3/uL (0.11-0.8); Monocytes % 7.4 % (1.7-12.7); Neutrophils # 4.1 10*3/uL (1.4-7.4); Neutrophils % 64.9 % (38.7-73.9); Platelet Count 170 T/CUMM (130-400); Red Blood Count 3.05 MC/CUMM (3.8-5.5); Red Cell Distribution Width 14.5 % (9.3-17.3); White Blood Count 6.3 T/CUMM (4-12)
[2017-09-12 07:34] LABS: Calcium 8.7 MG/DL (8.5-10.1); Potassium 4.9 MMOL/L (3.5-5.1)
[2017-09-12 07:49] VITALS: BP 169/80
[2017-09-12] MEDS: INSULIN REGULAR 100 UNIT/ML SUBCUT SCH (08:21)
[2017-09-12] MEDS: CLOPIDOGREL 75 MG TABLET PO SCH (08:56)
[2017-09-12] MEDS: FERROUS SULFATE 325 MG TABLET PO SCH (08:56)
[2017-09-12] MEDS: FUROSEMIDE 20 MG TABLET PO SCH (08:57)
[2017-09-12] MEDS: CARBIDOPA/LEVODOPA 25-100 MG TABLET PO SCH (08:57)
[2017-09-12] MEDS: ZINC OXIDE PASTE 113 GM TUBE TOP SCH (08:58)
[2017-09-12] MEDS: PANTOPRAZOLE 40 MG TABLET PO SCH (08:58)
[2017-09-12] MEDS: ASPIRIN EC 81 MG TABLET PO SCH (08:58)
[2017-09-12] MEDS: DOCUSATE SODIUM 100 MG CAPSULE PO SCH (08:58)
[2017-09-12] MEDS: amLODIPine 5 MG TABLET PO SCH (08:58)
[2017-09-12] MEDS: RIVASTIGMINE 4.6 MG/24 HR PATCH TRANSDERM SCH (09:08)
== END 2017-09-12 10:10 | DRG 291 ==
LOC: EDBD → EDUNIT# → N.ED 08:17 → N.EDINP 11:31 → N.4E 14:00
PROVIDERS: ADMIT Internal Medicine; ATTEND Internal Medicine

== ENCOUNTER 2017-10-12 07:30 | Inpatient (IN) ==
[2017-10-12] MEDS ORDERED: FUROSEMIDE 20 MG/2 ML VIAL IV STA (08:16)
[2017-10-12 09:48] LABS: Basophils % 0.1 % (0.0-0.8); Eosinophils % 0.4 % (0.00-10.9); Hematocrit 24.8 VOL% (35.7-47.0); Hemoglobin 7.9 GM/DL (12.0-16.0); Immature Granulocytes % 0.6 %; Immature Granulocytes Absolute 0.06 #; Lymphocytes # 0.5 10*3/uL (1.4-4.0); Lymphocytes % 5.2 % (21.3-54.2); Mean Corpuscular HGB Conc 31.9 GM/DL (32-36); Mean Corpuscular Hemoglobin 30 PG (27-34); Mean Platelet Volume 10.6 FL (9.6-12.0); Monocytes # 0.5 10*3/uL (0.11-0.8); Monocytes % 4.8 % (1.7-12.7); NRBC # 0.03 10*3/uL; Neutrophils # 8.9 10*3/uL (1.4-7.4); Neutrophils % 88.9 % (38.7-73.9); Platelet Count 210 T/CUMM (130-400); Red Blood Count 2.61 MC/CUMM (3.8-5.5); Red Cell Distribution Width 15.1 % (9.3-17.3)
[2017-10-12 10:10] LABS: INR 1.1; PT Patient Result 11.1 SECS
[2017-10-12 10:33] LABS: Alanine Aminotransferase 13 U/L (13-56); Albumin 3.3 G/DL (3.4-5.0); Alkaline Phosphatase 88 U/L (45-117); Aspartate Amino Transferase 15 U/L (0-37); Blood Urea Nitrogen 72 MG/DL (7-18); Calcium 8.3 MG/DL (8.5-10.1); Glucose 300 MG/DL (74-106); Osmolality,Calculated 299.2 MOS/KG (273-304); Potassium 5.3 MMOL/L (3.5-5.1); Sodium 134 MMOL/L (136-145); Total Protein 6.5 G/DL (6.4-8.3)
[2017-10-12 10:39] LABS: Troponin I Only 0.064 NG/ML (0.00-0.045)
[2017-10-12] MEDS ORDERED: MAGNESIUM SULF RIDER 2 GM in PREMIX 1 EACH IV PRN (12:47)
[2017-10-12] MEDS ORDERED: ACETAMINOPHEN 325 MG TABLET PO PRN (12:47)
[2017-10-12] MEDS ORDERED: ONDANSETRON 4 MG/2 ML VIAL IV PRN (12:47)
[2017-10-12] MEDS ORDERED: POTASSIUM CHLORIDE 20 MEQ TABLET PO PRN (12:47)
[2017-10-12] MEDS ORDERED: MAGNESIUM SULF RIDER 4 GM in PREMIX 1 EACH IV PRN (12:47)
[2017-10-12] MEDS ORDERED: PANTOPRAZOLE 40 MG TABLET PO SCH (13:00)
[2017-10-12] MEDS ORDERED: LEVOFLOXACIN INJ 750 MG in PREMIX 1 EACH IV SCH (14:30)
[2017-10-12] MEDS ORDERED: NITROGLYCERIN SL 0.4 MG TABLET SL ONE (14:36)
[2017-10-12] MEDS: NITROGLYCERIN SL 0.4 MG TABLET SL PRN ×2 (14:41→14:46)
[2017-10-12] MEDS ORDERED: MORPHINE 10 MG/1 ML VIAL ONE (14:44)
[2017-10-12] MEDS ORDERED: FUROSEMIDE 40 MG/4 ML VIAL ONE (14:46)
[2017-10-12] MEDS ORDERED: ASPIRIN EC 325 MG TABLET PO ONE (14:47)
[2017-10-12] MEDS ORDERED: ALUM/MAG/SIMETH/LIDO VISC 1:1 30 ML BOTTLE PO ONE ×2 (14:49→15:18)
[2017-10-12] MEDS ORDERED: METOPROLOL TARTRATE 5 MG/5 ML VIAL IV ONE ×2 (14:52→15:18)
[2017-10-12] MEDS ORDERED: ENOXAPARIN 80 MG/0.8 ML SYRINGE SUBCUT ONE (14:54)
[2017-10-12] MEDS ORDERED: HYDROmorphone 2 MG/1 ML VIAL ONE (14:55)
[2017-10-12] MEDS ORDERED: LORazepam 2 MG/1 ML VIAL ONE (14:56)
[2017-10-12] MEDS ORDERED: ENOXAPARIN 100 MG/ML SYRINGE SUBCUT ONE (15:15)
[2017-10-12] MEDS ORDERED: MORPHINE 4 MG/1 ML VIAL IV ONE (15:15)
[2017-10-12] MEDS ORDERED: ASPIRIN 325 MG TABLET PO ONE (15:16)
[2017-10-12] MEDS ORDERED: FUROSEMIDE 40 MG/4 ML VIAL IV ONE (15:17)
[2017-10-12] MEDS ORDERED: methylPREDNISolone SOD SUC 40 MG/1 ML VIAL IV ONE (15:18)
[2017-10-12] MEDS ORDERED: HYDROmorphone 2 MG/1 ML VIAL IV ONE (15:19)
[2017-10-12] MEDS ORDERED: LORazepam 2 MG/1 ML VIAL IV ONE (15:19)
[2017-10-12] MEDS ORDERED: SODIUM POLYSTYRENE SULFATE 15 GM/60 ML BOTTLE PO STA ×2 (15:30→17:29)
[2017-10-12] MEDS ORDERED: GLUCAGON 1 MG VIAL IM PRN (15:37)
[2017-10-12] MEDS ORDERED: DEXTROSE 50% 25 GM/50 ML VIAL IV PRN (15:37)
[2017-10-12] MEDS ORDERED: ALBUTEROL/IPRATROPIUM 3 ML NEB RESP TX PRN (15:38)
[2017-10-12] MEDS ORDERED: ALBUTEROL/IPRATROPIUM 3 ML NEB RESP TX ONE (15:38)
[2017-10-12 15:39] LABS: Allen Test Positive; Pt O2 Delivery Device Venturi Mask
[2017-10-12 15:40] LABS: ABG Base Excess -2.5 MMOL/L (-2.5-2.5); ABG HCO3 25.5 MMOL/L (20-26); ABG Oxygen Saturation 93.1 % (95-100); ABG PCO2 61.6 MM HG (35-48); ABG PH 7.234 (7.35-7.45); ABG PO2 82.3 MM HG (80-95); ABG TCO2 27.3 MMOL/L (23-27)
[2017-10-12] MEDS: ENOXAPARIN 30 MG/0.3 ML SYRINGE SUBCUT SCH (15:42)
[2017-10-12] MEDS ORDERED: FUROSEMIDE 20 MG/2 ML VIAL IV SCH (16:00)
[2017-10-12] MEDS ORDERED: ETOMIDATE 20 MG/10 ML VIAL IV ONE (16:17)
[2017-10-12] MEDS ORDERED: ATROPINE 1 MG/10 ML SYRINGE ONE ×2 (16:20→16:31)
[2017-10-12 16:25] LABS: Basophils % 0.1 % (0.0-0.8); Eosinophils % 0.4 % (0.00-10.9); Hematocrit 22.9 VOL% (35.7-47.0); Hemoglobin 7.2 GM/DL (12.0-16.0); Immature Granulocytes % 0.7 %; Immature Granulocytes Absolute 0.05 #; Lymphocytes # 0.5 10*3/uL (1.4-4.0); Lymphocytes % 7.9 % (21.3-54.2); Mean Corpuscular HGB Conc 31.4 GM/DL (32-36); Mean Corpuscular Hemoglobin 30 PG (27-34); Mean Corpuscular Volume 96.6 FL (87-102); Mean Platelet Volume 11.1 FL (9.6-12.0); Monocytes # 0.3 10*3/uL (0.11-0.8); Monocytes % 4.2 % (1.7-12.7); NRBC # 0.03 10*3/uL; Neutrophils # 5.9 10*3/uL (1.4-7.4); Neutrophils % 86.7 % (38.7-73.9); Platelet Count 191 T/CUMM (130-400); Red Blood Count 2.37 MC/CUMM (3.8-5.5); White Blood Count 6.8 T/CUMM (4-12)
[2017-10-12] MEDS ORDERED: NOREPINEPHRINE 4 MG/4 ML VIAL IV ONE (16:39)
[2017-10-12] MEDS ORDERED: NOREPINEPHRINE 8 MG in SODIUM CHLORIDE 0.9% 242 ML IV PRN (16:45)
[2017-10-12 16:52] LABS: Bacteria,Urine Moderate /HPF (Few); RBC,Urine 1629 /HPF (0-4); WBC,Urine 55542 /HPF (0-6)
[2017-10-12 17:01] LABS: Apearance,Urine CLOUDY (Clear); Bilirubin,Urine Negative (Negative); Blood, Urine Small mg/dL (Negative); Glucose,Urine (UA) 50 mg/dL (Negative); Ketones,Urine Negative (Negative); Nitrite,Urine Negative (Negative); Protein,Urine Negative; Urine Color Amber (Yellow); Urine Specific Gravity 1.011 (1.001-1.035); Urine Urobilinogen < 2.0 EU/DL (0.2-1.0)
[2017-10-12 17:08] LABS: Troponin I Only 0.065 NG/ML (0.00-0.045)
[2017-10-12 17:37] LABS: ABG HCO3 21.1 MMOL/L (20-26); ABG Oxygen Saturation 98.8 % (95-100); ABG PCO2 40.6 MM HG (35-48); ABG PH 7.333 (7.35-7.45)
[2017-10-12] MEDS ORDERED: PANTOPRAZOLE 40 MG VIAL IV ONE (17:38)
[2017-10-12] MEDS: FUROSEMIDE 20 MG/2 ML VIAL IV SCH (17:51)
[2017-10-12] MEDS: PIPERACILLIN/TAZOBACTAM 2,250 MG in SODIUM CHLORIDE 0.9% 100 ML IV SCH (17:51)
[2017-10-12] MEDS: PANTOPRAZOLE 40 MG VIAL IV SCH (17:53)
[2017-10-12] MEDS: INSULIN REGULAR 100 UNIT/ML SUBCUT SCH (18:02)
[2017-10-12] MEDS ORDERED: DOPamine 800 MG/250 ML PREMIX IV PRN (19:39)
[2017-10-12] MEDS ORDERED: CARVEDILOL 3.125 MG TABLET PO SCH (21:00)
[2017-10-12] MEDS: ATORVASTATIN 80 MG TABLET PO SCH (21:45)
[2017-10-12] MEDS: MIDAZOLAM 100 MG in SODIUM CHLORIDE 0.9% 80 ML IV PRN (23:12)
[2017-10-13] MEDS: INSULIN REGULAR 100 UNIT/ML SUBCUT SCH ×5 (00:20→23:42)
[2017-10-13] MEDS: methylPREDNISolone SOD SUC 40 MG/1 ML VIAL IV SCH ×4 (00:21→23:44)
[2017-10-13 04:28] LABS: ABG Base Excess -0.3 MMOL/L (-2.5-2.5); ABG HCO3 24.2 MMOL/L (20-26); ABG PCO2 22.6 MM HG (35-48); ABG PH 7.575 (7.35-7.45); ABG TCO2 19.7 MMOL/L (23-27); Allen Test Positive; Pt O2 Delivery Device Ventilator
[2017-10-13 05:15] LABS: Hematocrit 22.1 VOL% (35.7-47.0); Hemoglobin 7.4 GM/DL (12.0-16.0); Immature Granulocytes % 0.4 %; Immature Granulocytes Absolute 0.02 #; Lymphocytes # 0.4 10*3/uL (1.4-4.0); Lymphocytes % 7.3 % (21.3-54.2); Mean Corpuscular HGB Conc 33.5 GM/DL (32-36); Mean Corpuscular Hemoglobin 30 PG (27-34); Mean Corpuscular Volume 89.5 FL (87-102); Mean Platelet Volume 11.2 FL (9.6-12.0); Monocytes # 0.3 10*3/uL (0.11-0.8); Monocytes % 5.7 % (1.7-12.7); Neutrophils # 4.4 10*3/uL (1.4-7.4); Neutrophils % 86.6 % (38.7-73.9); Platelet Count 207 T/CUMM (130-400); Red Blood Count 2.47 MC/CUMM (3.8-5.5); Red Cell Distribution Width 14.7 % (9.3-17.3); White Blood Count 5.1 T/CUMM (4-12)
[2017-10-13 05:34] LABS: Albumin 2.9 G/DL (3.4-5.0); Calcium 8.7 MG/DL (8.5-10.1); Osmolality,Calculated 304.1 MOS/KG (273-304); Potassium 4.9 MMOL/L (3.5-5.1)
[2017-10-13] MEDS: PIPERACILLIN/TAZOBACTAM 2,250 MG in SODIUM CHLORIDE 0.9% 100 ML IV SCH ×2 (05:58→17:31)
[2017-10-13 06:27] LABS: Risk Ratio 2.09; Thyroid Stimulating Hormone 0.478 uIU/ml (0.358-3.74)
[2017-10-13] MEDS ORDERED: amLODIPine 5 MG TABLET PO SCH (08:00)
[2017-10-13] MEDS: PANTOPRAZOLE 40 MG VIAL IV SCH (10:26)
[2017-10-13] MEDS: ISOSORBIDE MONONITRATE 30 MG TABLET PO SCH (10:27)
[2017-10-13] MEDS: ASPIRIN EC 81 MG TABLET PO SCH (10:27)
[2017-10-13] MEDS: FUROSEMIDE 20 MG/2 ML VIAL IV SCH ×2 (10:27→17:30)
[2017-10-13] MEDS: MIDAZOLAM 100 MG in SODIUM CHLORIDE 0.9% 80 ML IV PRN ×2 (11:18→20:42)
[2017-10-13] MEDS: ENOXAPARIN 30 MG/0.3 ML SYRINGE SUBCUT SCH (13:01)
[2017-10-13] MEDS ORDERED: PANTOPRAZOLE 40 MG VIAL IV SCH (17:30)
[2017-10-13] MEDS: ATORVASTATIN 80 MG TABLET PO SCH (20:20)
[2017-10-14 04:11] LABS: Hematocrit 22.5 VOL% (35.7-47.0); Hemoglobin 7.2 GM/DL (12.0-16.0); Immature Granulocytes % 0.4 %; Immature Granulocytes Absolute 0.03 #; Lymphocytes # 0.4 10*3/uL (1.4-4.0); Lymphocytes % 5.7 % (21.3-54.2); Mean Corpuscular Hemoglobin 30 PG (27-34); Mean Corpuscular Volume 92.6 FL (87-102); Mean Platelet Volume 10.6 FL (9.6-12.0); Monocytes # 0.1 10*3/uL (0.11-0.8); Monocytes % 1.6 % (1.7-12.7); Neutrophils # 6.5 10*3/uL (1.4-7.4); Neutrophils % 92.3 % (38.7-73.9); Platelet Count 197 T/CUMM (130-400); Red Blood Count 2.43 MC/CUMM (3.8-5.5); Red Cell Distribution Width 14.9 % (9.3-17.3)
[2017-10-14 04:39] LABS: Band Neutrophils 2 % (0-10); Lymphocytes 6 % (20-55); Nucleated Red Blood Cells 1 (0-5); Segmented Neutrophils 91 % (50-85); Total Cells Counted 100
[2017-10-14 04:40] LABS: Anisocytosis 1+; Platelet Estimate Normal
[2017-10-14 04:42] LABS: ABG Base Excess -0.3 MMOL/L (-2.5-2.5); ABG HCO3 24.2 MMOL/L (20-26); ABG PCO2 27.9 MM HG (35-48); ABG PH 7.508 (7.35-7.45); ABG TCO2 20.7 MMOL/L (23-27); Allen Test Positive; Pt O2 Delivery Device Ventilator
[2017-10-14 04:42] LABS: Albumin 2.6 G/DL (3.4-5.0); Calcium 8.7 MG/DL (8.5-10.1); Osmolality,Calculated 305.5 MOS/KG (273-304); Potassium 4.4 MMOL/L (3.5-5.1)
[2017-10-14] MEDS: INSULIN REGULAR 100 UNIT/ML SUBCUT SCH ×3 (05:21→17:14)
[2017-10-14] MEDS: PIPERACILLIN/TAZOBACTAM 2,250 MG in SODIUM CHLORIDE 0.9% 100 ML IV SCH ×2 (05:21→17:07)
[2017-10-14] MEDS: MIDAZOLAM 100 MG in SODIUM CHLORIDE 0.9% 80 ML IV PRN ×2 (08:06→18:45)
[2017-10-14] MEDS ORDERED: SODIUM CHLORIDE 0.9% 1,000 ML IV PRN (08:59)
[2017-10-14] MEDS: methylPREDNISolone SOD SUC 40 MG/1 ML VIAL IV SCH ×2 (09:16→17:01)
[2017-10-14] MEDS: ISOSORBIDE MONONITRATE 30 MG TABLET PO SCH (09:18)
[2017-10-14] MEDS: ASPIRIN EC 81 MG TABLET PO SCH (09:19)
[2017-10-14] MEDS: FUROSEMIDE 20 MG/2 ML VIAL IV SCH ×2 (09:20→16:59)
[2017-10-14] MEDS: PANTOPRAZOLE 40 MG VIAL IV SCH (09:23)
[2017-10-14] MEDS: ENOXAPARIN 30 MG/0.3 ML SYRINGE SUBCUT SCH (12:12)
[2017-10-14] MEDS: ZINC OXIDE PASTE 113 GM TUBE TOP SCH ×2 (16:53→20:09)
[2017-10-14] MEDS: LEVOFLOXACIN INJ 500 MG in PREMIX 1 EACH IV SCH (16:53)
[2017-10-14] MEDS: ATORVASTATIN 80 MG TABLET PO SCH (20:09)
[2017-10-15] MEDS: INSULIN REGULAR 100 UNIT/ML SUBCUT SCH ×5 (00:01→23:41)
[2017-10-15] MEDS: methylPREDNISolone SOD SUC 40 MG/1 ML VIAL IV SCH ×4 (00:01→23:41)
[2017-10-15 03:40] LABS: ABG Base Excess -1.4 MMOL/L (-2.5-2.5); ABG HCO3 23.3 MMOL/L (20-26); ABG Oxygen Saturation 99.6 % (95-100); ABG PCO2 30.8 MM HG (35-48); ABG PH 7.454 (7.35-7.45); ABG TCO2 19.2 MMOL/L (23-27)
[2017-10-15 04:51] LABS: Hematocrit 25.7 VOL% (35.7-47.0); Hemoglobin 8.4 GM/DL (12.0-16.0); Immature Granulocytes % 0.5 %; Immature Granulocytes Absolute 0.03 #; Lymphocytes # 0.2 10*3/uL (1.4-4.0); Lymphocytes % 3.7 % (21.3-54.2); Mean Corpuscular HGB Conc 32.7 GM/DL (32-36); Mean Corpuscular Hemoglobin 30 PG (27-34); Mean Corpuscular Volume 92.1 FL (87-102); Mean Platelet Volume 10.9 FL (9.6-12.0); Monocytes # 0.2 10*3/uL (0.11-0.8); Monocytes % 3.1 % (1.7-12.7); Neutrophils % 92.7 % (38.7-73.9); Platelet Count 199 T/CUMM (130-400); Red Blood Count 2.79 MC/CUMM (3.8-5.5); Red Cell Distribution Width 15.3 % (9.3-17.3); White Blood Count 6.4 T/CUMM (4-12)
[2017-10-15 05:19] LABS: Albumin 2.6 G/DL (3.4-5.0); Calcium 8.2 MG/DL (8.5-10.1); Osmolality,Calculated 315.4 MOS/KG (273-304)
[2017-10-15] MEDS: PIPERACILLIN/TAZOBACTAM 2,250 MG in SODIUM CHLORIDE 0.9% 100 ML IV SCH (05:23)
[2017-10-15 05:28] LABS: Calcium 8.1 MG/DL (8.5-10.1); Osmolality,Calculated 315.5 MOS/KG (273-304); Potassium 3.9 MMOL/L (3.5-5.1)
[2017-10-15 05:41] LABS: Band Neutrophils 1 % (0-10); Lymphocytes 4 % (20-55); Platelet Estimate Normal; Segmented Neutrophils 95 % (50-85); Total Cells Counted 100
[2017-10-15] MEDS: MIDAZOLAM 100 MG in SODIUM CHLORIDE 0.9% 80 ML IV PRN ×2 (06:30→18:30)
[2017-10-15] MEDS: ASPIRIN EC 81 MG TABLET PO SCH (09:16)
[2017-10-15] MEDS: ISOSORBIDE MONONITRATE 30 MG TABLET PO SCH (09:16)
[2017-10-15] MEDS: PANTOPRAZOLE 40 MG VIAL IV SCH (09:16)
[2017-10-15] MEDS: FUROSEMIDE 20 MG/2 ML VIAL IV SCH ×2 (09:18→16:35)
[2017-10-15] MEDS: ZINC OXIDE PASTE 113 GM TUBE TOP SCH ×2 (09:19→20:06)
[2017-10-15] MEDS ORDERED: amLODIPine 10 MG TABLET PO SCH (09:23)
[2017-10-15] MEDS: INSULIN GLARGINE 100 UNIT/ML SUBCUT SCH (12:31)
[2017-10-15] MEDS: ENOXAPARIN 30 MG/0.3 ML SYRINGE SUBCUT SCH (12:32)
[2017-10-15] MEDS: CARBIDOPA/LEVODOPA 25-100 MG TABLET PO SCH ×2 (16:35→20:06)
[2017-10-15] MEDS: MENTHOL/ZINC OXIDE OINT 71 GM JAR TOP SCH ×2 (16:35→20:06)
[2017-10-15] MEDS: ATORVASTATIN 80 MG TABLET PO SCH (20:06)
[2017-10-16 03:50] LABS: ABG Base Excess -0.3 MMOL/L (-2.5-2.5); ABG HCO3 22.8 MMOL/L (20-26); ABG Oxygen Saturation 98.8 % (95-100); ABG PCO2 31.6 MM HG (35-48); ABG PH 7.476 (7.35-7.45); ABG PO2 215.9 MM HG (80-95); ABG TCO2 23.8 MMOL/L (23-27)
[2017-10-16 05:06] LABS: Hematocrit 27.9 VOL% (35.7-47.0); Immature Granulocytes % 1.1 %; Immature Granulocytes Absolute 0.07 #; Lymphocytes # 0.3 10*3/uL (1.4-4.0); Lymphocytes % 4.4 % (21.3-54.2); Mean Corpuscular HGB Conc 32.3 GM/DL (32-36); Mean Corpuscular Hemoglobin 30 PG (27-34); Mean Corpuscular Volume 93.6 FL (87-102); Mean Platelet Volume 11.4 FL (9.6-12.0); Monocytes # 0.2 10*3/uL (0.11-0.8); Monocytes % 3.2 % (1.7-12.7); Neutrophils % 91.3 % (38.7-73.9); Platelet Count 197 T/CUMM (130-400); Red Blood Count 2.98 MC/CUMM (3.8-5.5); Red Cell Distribution Width 15.4 % (9.3-17.3); White Blood Count 6.5 T/CUMM (4-12)
[2017-10-16 05:23] LABS: Calcium 8.2 MG/DL (8.5-10.1); Osmolality,Calculated 325.3 MOS/KG (273-304); Potassium 4.4 MMOL/L (3.5-5.1)
[2017-10-16 05:26] LABS: Albumin 2.7 G/DL (3.4-5.0); Calcium 8.3 MG/DL (8.5-10.1); Osmolality,Calculated 325.3 MOS/KG (273-304); Potassium 4.3 MMOL/L (3.5-5.1)
[2017-10-16] MEDS: MIDAZOLAM 100 MG in SODIUM CHLORIDE 0.9% 80 ML IV PRN (05:32)
[2017-10-16 05:40] LABS: Hypochromasia 1+; Lymphocytes 8 % (20-55); Ovalocytes Slight; Platelet Estimate Adequate; Segmented Neutrophils 88 % (50-85); Total Cells Counted 100
[2017-10-16] MEDS: INSULIN REGULAR 100 UNIT/ML SUBCUT SCH ×3 (05:42→19:44)
[2017-10-16] MEDS: ASPIRIN EC 81 MG TABLET PO SCH (08:15)
[2017-10-16] MEDS: RIVASTIGMINE 4.6 MG/24 HR PATCH TRANSDERM SCH (08:15)
[2017-10-16] MEDS: CARBIDOPA/LEVODOPA 25-100 MG TABLET PO SCH ×3 (08:15→22:11)
[2017-10-16] MEDS: ISOSORBIDE MONONITRATE 30 MG TABLET PO SCH (08:15)
[2017-10-16] MEDS: INSULIN GLARGINE 100 UNIT/ML SUBCUT SCH (08:17)
[2017-10-16] MEDS: methylPREDNISolone SOD SUC 40 MG/1 ML VIAL IV SCH ×2 (08:18→15:53)
[2017-10-16] MEDS: PANTOPRAZOLE 40 MG VIAL IV SCH (08:18)
[2017-10-16] MEDS: FUROSEMIDE 20 MG/2 ML VIAL IV SCH ×2 (08:18→15:56)
[2017-10-16] MEDS: ZINC OXIDE PASTE 113 GM TUBE TOP SCH ×2 (08:19→22:11)
[2017-10-16] MEDS: MENTHOL/ZINC OXIDE OINT 71 GM JAR TOP SCH ×3 (08:19→22:10)
[2017-10-16] MEDS: ISOSORBIDE DINITRATE 20 MG TABLET PO SCH ×3 (09:52→22:11)
[2017-10-16] MEDS: hydrALAZINE 25 MG TABLET PO SCH ×3 (09:52→22:10)
[2017-10-16] MEDS: amLODIPine 5 MG TABLET PO SCH (09:52)
[2017-10-16] MEDS: ENOXAPARIN 30 MG/0.3 ML SYRINGE SUBCUT SCH (13:26)
[2017-10-16] MEDS: LEVOFLOXACIN INJ 500 MG in PREMIX 1 EACH IV SCH (15:53)
[2017-10-16] MEDS: ATORVASTATIN 80 MG TABLET PO SCH (22:11)
[2017-10-17] MEDS: INSULIN REGULAR 100 UNIT/ML SUBCUT SCH ×2 (00:59→06:29)
[2017-10-17] MEDS: methylPREDNISolone SOD SUC 40 MG/1 ML VIAL IV SCH ×3 (01:06→21:27)
[2017-10-17 04:30] LABS: ABG Base Excess 0.8 MMOL/L (-2.5-2.5); ABG HCO3 25.2 MMOL/L (20-26); ABG PCO2 31.2 MM HG (35-48); ABG PH 7.486 (7.35-7.45); ABG TCO2 21.3 MMOL/L (23-27); Allen Test Positive; Pt O2 Delivery Device Ventilator
[2017-10-17 05:16] LABS: Basophils % 0.1 % (0.0-0.8); Hematocrit 27.1 VOL% (35.7-47.0); Hemoglobin 8.8 GM/DL (12.0-16.0); Immature Granulocytes % 2.5 %; Lymphocytes # 0.4 10*3/uL (1.4-4.0); Lymphocytes % 5.2 % (21.3-54.2); Mean Corpuscular HGB Conc 32.5 GM/DL (32-36); Mean Corpuscular Hemoglobin 30 PG (27-34); Mean Corpuscular Volume 91.9 FL (87-102); Mean Platelet Volume 11.2 FL (9.6-12.0); Monocytes # 0.4 10*3/uL (0.11-0.8); Neutrophils # 7.1 10*3/uL (1.4-7.4); Neutrophils % 87.2 % (38.7-73.9); Platelet Count 192 T/CUMM (130-400); Red Blood Count 2.95 MC/CUMM (3.8-5.5); Red Cell Distribution Width 14.8 % (9.3-17.3); White Blood Count 8.1 T/CUMM (4-12)
[2017-10-17 05:48] LABS: Calcium 8.6 MG/DL (8.5-10.1); Osmolality,Calculated 333.1 MOS/KG (273-304); Potassium 4.5 MMOL/L (3.5-5.1)
[2017-10-17] MEDS: MIDAZOLAM 100 MG in SODIUM CHLORIDE 0.9% 80 ML IV PRN (06:45)
[2017-10-17] MEDS: FUROSEMIDE 20 MG/2 ML VIAL IV SCH ×2 (07:53→15:25)
[2017-10-17] MEDS: PANTOPRAZOLE 40 MG VIAL IV SCH (08:08)
[2017-10-17] MEDS: INSULIN GLARGINE 100 UNIT/ML SUBCUT SCH ×2 (08:08→12:36)
[2017-10-17] MEDS: RIVASTIGMINE 4.6 MG/24 HR PATCH TRANSDERM SCH (08:09)
[2017-10-17] MEDS: ISOSORBIDE DINITRATE 20 MG TABLET PO SCH ×3 (08:09→21:27)
[2017-10-17] MEDS: amLODIPine 5 MG TABLET PO SCH (08:09)
[2017-10-17] MEDS: ASPIRIN EC 81 MG TABLET PO SCH (08:09)
[2017-10-17] MEDS: hydrALAZINE 25 MG TABLET PO SCH ×3 (08:09→21:27)
[2017-10-17] MEDS: CARBIDOPA/LEVODOPA 25-100 MG TABLET PO SCH ×3 (08:09→21:27)
[2017-10-17] MEDS: MENTHOL/ZINC OXIDE OINT 71 GM JAR TOP SCH ×3 (08:10→21:34)
[2017-10-17] MEDS: ZINC OXIDE PASTE 113 GM TUBE TOP SCH ×2 (08:10→21:34)
[2017-10-17] MEDS: INSULIN LISPRO 100 UNIT/ML SUBCUT SCH ×3 (12:40→21:27)
[2017-10-17] MEDS: ENOXAPARIN 30 MG/0.3 ML SYRINGE SUBCUT SCH (12:41)
[2017-10-17] MEDS: ATORVASTATIN 80 MG TABLET PO SCH (21:27)
[2017-10-18] MEDS: INSULIN LISPRO 100 UNIT/ML SUBCUT SCH ×6 (00:45→20:11)
[2017-10-18 04:33] LABS: ABG Base Excess 1.2 MMOL/L (-2.5-2.5); ABG HCO3 25.5 MMOL/L (20-26); ABG PCO2 31.6 MM HG (35-48); ABG TCO2 21.9 MMOL/L (23-27)
[2017-10-18] MEDS: MIDAZOLAM 100 MG in SODIUM CHLORIDE 0.9% 80 ML IV PRN (04:33)
[2017-10-18 05:16] LABS: Eosinophils % 0.3 % (0.00-10.9); Hematocrit 27.5 VOL% (35.7-47.0); Hemoglobin 8.9 GM/DL (12.0-16.0); Immature Granulocytes % 2.9 %; Lymphocytes # 1.5 10*3/uL (1.4-4.0); Mean Corpuscular HGB Conc 32.4 GM/DL (32-36); Mean Corpuscular Hemoglobin 30 PG (27-34); Mean Corpuscular Volume 92.6 FL (87-102); Mean Platelet Volume 11.4 FL (9.6-12.0); Monocytes # 0.8 10*3/uL (0.11-0.8); Monocytes % 7.6 % (1.7-12.7); Neutrophils # 7.6 10*3/uL (1.4-7.4); Neutrophils % 74.2 % (38.7-73.9); Platelet Count 191 T/CUMM (130-400); Red Blood Count 2.97 MC/CUMM (3.8-5.5); Red Cell Distribution Width 14.9 % (9.3-17.3); White Blood Count 10.2 T/CUMM (4-12)
[2017-10-18 05:40] LABS: Calcium 8.5 MG/DL (8.5-10.1); Potassium 4.4 MMOL/L (3.5-5.1)
[2017-10-18 06:07] LABS: Prealbumin 34.5 MG/DL (20-40)
[2017-10-18] MEDS: INSULIN GLARGINE 100 UNIT/ML SUBCUT SCH (09:11)
[2017-10-18] MEDS: FUROSEMIDE 20 MG/2 ML VIAL IV SCH ×2 (09:12→16:24)
[2017-10-18] MEDS: methylPREDNISolone SOD SUC 40 MG/1 ML VIAL IV SCH ×2 (09:14→20:13)
[2017-10-18] MEDS: ASPIRIN EC 81 MG TABLET PO SCH (09:16)
[2017-10-18] MEDS: hydrALAZINE 25 MG TABLET PO SCH ×2 (09:16→16:24)
[2017-10-18] MEDS: CARBIDOPA/LEVODOPA 25-100 MG TABLET PO SCH ×3 (09:16→21:30)
[2017-10-18] MEDS: ISOSORBIDE DINITRATE 20 MG TABLET PO SCH ×3 (09:16→21:30)
[2017-10-18] MEDS: RIVASTIGMINE 4.6 MG/24 HR PATCH TRANSDERM SCH (09:16)
[2017-10-18] MEDS: amLODIPine 5 MG TABLET PO SCH (09:16)
[2017-10-18] MEDS: ZINC OXIDE PASTE 113 GM TUBE TOP SCH ×2 (09:17→21:30)
[2017-10-18] MEDS: MENTHOL/ZINC OXIDE OINT 71 GM JAR TOP SCH ×3 (09:17→21:30)
[2017-10-18] MEDS: PANTOPRAZOLE 40 MG VIAL IV SCH (09:17)
[2017-10-18 09:44] LABS: ABG Base Excess 0.1 MMOL/L (-2.5-2.5); ABG HCO3 24.5 MMOL/L (20-26); ABG Oxygen Saturation 94.7 % (95-100); ABG PCO2 47.8 MM HG (35-48); ABG PH 7.346 (7.35-7.45); ABG PO2 81.8 MM HG (80-95); ABG TCO2 23.9 MMOL/L (23-27)
[2017-10-18 10:54] LABS: ABG Base Excess 0.6 MMOL/L (-2.5-2.5); ABG HCO3 26.2 MMOL/L (20-26); ABG Oxygen Saturation 97.3 % (95-100); ABG PCO2 46.3 MM HG (35-48); ABG PO2 113.2 MM HG (80-95); ABG TCO2 27.6 MMOL/L (23-27)
[2017-10-18] MEDS: ENOXAPARIN 30 MG/0.3 ML SYRINGE SUBCUT SCH (12:57)
[2017-10-18 13:33] LABS: Apearance,Urine CLOUDY (Clear); Bacteria,Urine Many /HPF (Few); Bilirubin,Urine Negative (Negative); Blood, Urine Small mg/dL (Negative); Glucose,Urine (UA) 50 mg/dL (Negative); Ketones,Urine Negative (Negative); Nitrite,Urine Negative (Negative); Protein,Urine 100 MG/DL; RBC,Urine 17 /HPF (0-4); Urine Color Yellow (Yellow); Urine Urobilinogen < 2.0 EU/DL (0.2-1.0); WBC,Urine 921 /HPF (0-6)
[2017-10-18] MEDS: ALBUTEROL/IPRATROPIUM 3 ML NEB RESP TX SCH ×2 (13:51→19:46)
[2017-10-18] MEDS: LEVOFLOXACIN INJ 500 MG in PREMIX 1 EACH IV SCH (16:24)
[2017-10-18] MEDS: ATORVASTATIN 80 MG TABLET PO SCH (21:30)
[2017-10-19] MEDS: INSULIN LISPRO 100 UNIT/ML SUBCUT SCH ×7 (00:22→23:42)
[2017-10-19] MEDS: ALBUTEROL/IPRATROPIUM 3 ML NEB RESP TX SCH ×4 (00:53→20:00)
[2017-10-19] MEDS: hydrALAZINE 25 MG TABLET PO SCH ×4 (01:10→21:19)
[2017-10-19 03:52] LABS: ABG Base Excess 0.2 MMOL/L (-2.5-2.5); ABG HCO3 24.6 MMOL/L (20-26); ABG Oxygen Saturation 93.5 % (95-100); ABG PH 7.387 (7.35-7.45); ABG TCO2 23.2 MMOL/L (23-27); Allen Test Positive; Pt O2 Delivery Device Room Air
[2017-10-19 04:16] LABS: Calcium 8.7 MG/DL (8.5-10.1); Osmolality,Calculated 336.1 MOS/KG (273-304); Potassium 4.8 MMOL/L (3.5-5.1)
[2017-10-19] MEDS: FUROSEMIDE 20 MG/2 ML VIAL IV SCH ×2 (07:56→17:32)
[2017-10-19] MEDS: methylPREDNISolone SOD SUC 40 MG/1 ML VIAL IV SCH ×2 (07:58→19:56)
[2017-10-19] MEDS: RIVASTIGMINE 4.6 MG/24 HR PATCH TRANSDERM SCH (09:52)
[2017-10-19] MEDS: PANTOPRAZOLE 40 MG VIAL IV SCH (09:52)
[2017-10-19] MEDS: INSULIN GLARGINE 100 UNIT/ML SUBCUT SCH (09:53)
[2017-10-19] MEDS: ISOSORBIDE DINITRATE 20 MG TABLET PO SCH ×3 (09:53→21:19)
[2017-10-19] MEDS: ASPIRIN EC 81 MG TABLET PO SCH (09:53)
[2017-10-19] MEDS: amLODIPine 5 MG TABLET PO SCH (09:53)
[2017-10-19] MEDS: CARBIDOPA/LEVODOPA 25-100 MG TABLET PO SCH ×3 (09:53→21:19)
[2017-10-19] MEDS: MENTHOL/ZINC OXIDE OINT 71 GM JAR TOP SCH ×3 (09:54→21:19)
[2017-10-19] MEDS: ZINC OXIDE PASTE 113 GM TUBE TOP SCH ×2 (09:55→21:19)
[2017-10-19] MEDS: NITROGLYCERIN SL 0.4 MG TABLET SL PRN (13:30)
[2017-10-19] MEDS: ENOXAPARIN 30 MG/0.3 ML SYRINGE SUBCUT SCH (13:38)
[2017-10-19] MEDS: ATORVASTATIN 80 MG TABLET PO SCH (21:19)
[2017-10-20] MEDS: ALBUTEROL/IPRATROPIUM 3 ML NEB RESP TX SCH ×4 (00:30→20:30)
[2017-10-20 02:30] LABS: Calcium 8.5 MG/DL (8.5-10.1); Osmolality,Calculated 338.3 MOS/KG (273-304); Potassium 4.6 MMOL/L (3.5-5.1)
[2017-10-20] MEDS: INSULIN LISPRO 100 UNIT/ML SUBCUT SCH ×4 (04:11→21:33)
[2017-10-20 04:19] LABS: ABG Base Excess -0.1 MMOL/L (-2.5-2.5); ABG HCO3 24.3 MMOL/L (20-26); ABG Oxygen Saturation 96.2 % (95-100); ABG PCO2 39.5 MM HG (35-48); ABG PH 7.401 (7.35-7.45); ABG PO2 79.9 MM HG (80-95); ABG TCO2 22.6 MMOL/L (23-27)
[2017-10-20] MEDS ORDERED: INSULIN GLARGINE 100 UNIT/ML SUBCUT SCH (09:00)
[2017-10-20] MEDS: RIVASTIGMINE 4.6 MG/24 HR PATCH TRANSDERM SCH (09:16)
[2017-10-20] MEDS: INSULIN NPH 100 UNIT/ML SUBCUT SCH ×2 (09:17→12:19)
[2017-10-20] MEDS: PANTOPRAZOLE 40 MG VIAL IV SCH (09:17)
[2017-10-20] MEDS: FUROSEMIDE 20 MG/2 ML VIAL IV SCH ×2 (09:19→15:40)
[2017-10-20] MEDS: methylPREDNISolone SOD SUC 40 MG/1 ML VIAL IV SCH ×2 (09:21→20:46)
[2017-10-20] MEDS: ASPIRIN EC 81 MG TABLET PO SCH (09:23)
[2017-10-20] MEDS: hydrALAZINE 25 MG TABLET PO SCH ×3 (09:23→20:46)
[2017-10-20] MEDS: ISOSORBIDE DINITRATE 20 MG TABLET PO SCH ×3 (09:23→20:45)
[2017-10-20] MEDS: CARBIDOPA/LEVODOPA 25-100 MG TABLET PO SCH ×3 (09:23→20:46)
[2017-10-20] MEDS: amLODIPine 5 MG TABLET PO SCH (09:23)
[2017-10-20] MEDS: ZINC OXIDE PASTE 113 GM TUBE TOP SCH ×2 (09:24→21:33)
[2017-10-20] MEDS: MENTHOL/ZINC OXIDE OINT 71 GM JAR TOP SCH ×3 (09:24→21:34)
[2017-10-20] MEDS: ENOXAPARIN 30 MG/0.3 ML SYRINGE SUBCUT SCH (12:19)
[2017-10-20] MEDS: LEVOFLOXACIN INJ 500 MG in PREMIX 1 EACH IV SCH (14:51)
[2017-10-20] MEDS: ATORVASTATIN 80 MG TABLET PO SCH (20:45)
[2017-10-21] MEDS: ALBUTEROL/IPRATROPIUM 3 ML NEB RESP TX SCH ×4 (00:24→19:40)
[2017-10-21 03:13] LABS: Basophils % 0.2 % (0.0-0.8); Hematocrit 29.9 VOL% (35.7-47.0); Hemoglobin 9.6 GM/DL (12.0-16.0); Immature Granulocytes % 6.1 %; Immature Granulocytes Absolute 0.76 #; Lymphocytes # 0.4 10*3/uL (1.4-4.0); Mean Corpuscular HGB Conc 32.1 GM/DL (32-36); Mean Corpuscular Hemoglobin 29 PG (27-34); Mean Corpuscular Volume 90.9 FL (87-102); Mean Platelet Volume 11.9 FL (9.6-12.0); Monocytes # 0.4 10*3/uL (0.11-0.8); Monocytes % 2.9 % (1.7-12.7); NRBC # 0.03 10*3/uL; Neutrophils # 10.9 10*3/uL (1.4-7.4); Neutrophils % 87.8 % (38.7-73.9); Platelet Count 236 T/CUMM (130-400); Red Blood Count 3.29 MC/CUMM (3.8-5.5); White Blood Count 12.4 T/CUMM (4-12)
[2017-10-21 03:24] LABS: Calcium 8.9 MG/DL (8.5-10.1); Osmolality,Calculated 321.1 MOS/KG (273-304); Potassium 4.6 MMOL/L (3.5-5.1)
[2017-10-21 03:45] LABS: Lymphocytes 4 % (20-55); Myelocytes 3 %; Segmented Neutrophils 91 % (50-85)
[2017-10-21 03:48] LABS: ABG Base Excess -1.1 MMOL/L (-2.5-2.5); ABG HCO3 23.5 MMOL/L (20-26); ABG Oxygen Saturation 96.4 % (95-100); ABG PCO2 35.6 MM HG (35-48); ABG PH 7.418 (7.35-7.45); ABG PO2 79.6 MM HG (80-95)
[2017-10-21 03:50] LABS: Hypochromasia 1+; Platelet Estimate Normal
[2017-10-21 03:51] LABS: Polychromasia Few
[2017-10-21 03:54] LABS: Total Cells Counted 100
[2017-10-21] MEDS: FUROSEMIDE 20 MG/2 ML VIAL IV SCH ×2 (07:56→16:36)
[2017-10-21] MEDS: methylPREDNISolone SOD SUC 40 MG/1 ML VIAL IV SCH ×2 (07:59→21:58)
[2017-10-21] MEDS: INSULIN LISPRO 100 UNIT/ML SUBCUT SCH ×4 (08:47→22:00)
[2017-10-21] MEDS: INSULIN GLARGINE 100 UNIT/ML SUBCUT SCH (08:47)
[2017-10-21] MEDS: PANTOPRAZOLE 40 MG VIAL IV SCH (08:48)
[2017-10-21] MEDS: hydrALAZINE 25 MG TABLET PO SCH ×3 (08:48→22:00)
[2017-10-21] MEDS: MENTHOL/ZINC OXIDE OINT 71 GM JAR TOP SCH ×3 (08:48→22:04)
[2017-10-21] MEDS: ISOSORBIDE DINITRATE 20 MG TABLET PO SCH ×3 (08:48→22:00)
[2017-10-21] MEDS: ZINC OXIDE PASTE 113 GM TUBE TOP SCH ×2 (08:48→22:04)
[2017-10-21] MEDS: amLODIPine 5 MG TABLET PO SCH (08:48)
[2017-10-21] MEDS: CARBIDOPA/LEVODOPA 25-100 MG TABLET PO SCH ×3 (08:48→22:00)
[2017-10-21] MEDS: ASPIRIN EC 81 MG TABLET PO SCH (08:48)
[2017-10-21] MEDS: RIVASTIGMINE 4.6 MG/24 HR PATCH TRANSDERM SCH (09:02)
[2017-10-21] MEDS: PIPERACILLIN/TAZOBACTAM 3,375 MG in SODIUM CHLORIDE 0.9% 100 ML IV SCH ×2 (11:24→22:02)
[2017-10-21] MEDS: ENOXAPARIN 30 MG/0.3 ML SYRINGE SUBCUT SCH (16:35)
[2017-10-21] MEDS: ATORVASTATIN 80 MG TABLET PO SCH (22:00)
[2017-10-22] MEDS: ALBUTEROL/IPRATROPIUM 3 ML NEB RESP TX SCH ×4 (01:05→19:00)
[2017-10-22] MEDS: metroNIDAZOLE 500 MG TABLET PO SCH ×3 (02:46→15:27)
[2017-10-22] MEDS: CARBIDOPA/LEVODOPA 25-100 MG TABLET PO SCH ×3 (09:06→22:16)
[2017-10-22] MEDS: amLODIPine 5 MG TABLET PO SCH (09:07)
[2017-10-22] MEDS: INSULIN LISPRO 100 UNIT/ML SUBCUT SCH ×4 (09:07→20:37)
[2017-10-22] MEDS: ISOSORBIDE DINITRATE 20 MG TABLET PO SCH ×3 (09:07→22:14)
[2017-10-22] MEDS: ASPIRIN EC 81 MG TABLET PO SCH (09:07)
[2017-10-22] MEDS: hydrALAZINE 25 MG TABLET PO SCH ×3 (09:07→22:16)
[2017-10-22] MEDS: methylPREDNISolone SOD SUC 40 MG/1 ML VIAL IV SCH (09:08)
[2017-10-22] MEDS: INSULIN GLARGINE 100 UNIT/ML SUBCUT SCH (09:08)
[2017-10-22] MEDS: PANTOPRAZOLE 40 MG VIAL IV SCH (09:09)
[2017-10-22] MEDS: RIVASTIGMINE 4.6 MG/24 HR PATCH TRANSDERM SCH (09:11)
[2017-10-22] MEDS: MENTHOL/ZINC OXIDE OINT 71 GM JAR TOP SCH ×3 (09:12→22:15)
[2017-10-22] MEDS: ZINC OXIDE PASTE 113 GM TUBE TOP SCH ×2 (09:12→22:15)
[2017-10-22] MEDS: FUROSEMIDE 20 MG/2 ML VIAL IV SCH (09:13)
[2017-10-22] MEDS: PIPERACILLIN/TAZOBACTAM 3,375 MG in SODIUM CHLORIDE 0.9% 100 ML IV SCH ×2 (10:22→22:16)
[2017-10-22] MEDS: ENOXAPARIN 30 MG/0.3 ML SYRINGE SUBCUT SCH (12:43)
[2017-10-22] MEDS: FUROSEMIDE 80 MG TABLET PO SCH (16:44)
[2017-10-22] MEDS: VANCOMYCIN 50 MG/ML 60 ML/BOTTLE PO SCH (18:33)
[2017-10-22] MEDS: ATORVASTATIN 40 MG TABLET PO SCH (22:14)
[2017-10-23] MEDS: ALBUTEROL/IPRATROPIUM 3 ML NEB RESP TX SCH ×4 (01:34→19:34)
[2017-10-23] MEDS: VANCOMYCIN 50 MG/ML 60 ML/BOTTLE PO SCH ×4 (01:42→18:30)
[2017-10-23 05:24] LABS: Basophils % 0.1 % (0.0-0.8); Eosinophils % 0.2 % (0.00-10.9); Hematocrit 28.8 VOL% (35.7-47.0); Hemoglobin 9.1 GM/DL (12.0-16.0); Immature Granulocytes % 4.9 %; Immature Granulocytes Absolute 0.66 #; Lymphocytes # 1.9 10*3/uL (1.4-4.0); Lymphocytes % 13.9 % (21.3-54.2); Mean Corpuscular HGB Conc 31.6 GM/DL (32-36); Mean Corpuscular Hemoglobin 29 PG (27-34); Mean Corpuscular Volume 93.2 FL (87-102); Mean Platelet Volume 11.5 FL (9.6-12.0); Monocytes # 0.9 10*3/uL (0.11-0.8); Monocytes % 6.7 % (1.7-12.7); NRBC # 0.02 10*3/uL; Neutrophils % 74.2 % (38.7-73.9); Platelet Count 213 T/CUMM (130-400); Red Blood Count 3.09 MC/CUMM (3.8-5.5); Red Cell Distribution Width 14.6 % (9.3-17.3); White Blood Count 13.5 T/CUMM (4-12)
[2017-10-23 05:46] LABS: Calcium 8.7 MG/DL (8.5-10.1); Osmolality,Calculated 323.4 MOS/KG (273-304); Potassium 4.4 MMOL/L (3.5-5.1)
[2017-10-23 08:10] LABS: Hypochromasia 1+; Lymphocytes 18 % (20-55); Platelet Estimate Adequate; Segmented Neutrophils 67 % (50-85); Total Cells Counted 100
[2017-10-23] MEDS: INSULIN LISPRO 100 UNIT/ML SUBCUT SCH ×4 (08:47→20:53)
[2017-10-23] MEDS: predniSONE 20 MG TABLET PO SCH (09:51)
[2017-10-23] MEDS: ISOSORBIDE DINITRATE 20 MG TABLET PO SCH ×3 (09:51→20:53)
[2017-10-23] MEDS: ASPIRIN EC 81 MG TABLET PO SCH (09:51)
[2017-10-23] MEDS: hydrALAZINE 25 MG TABLET PO SCH ×3 (09:52→20:53)
[2017-10-23] MEDS: INSULIN GLARGINE 100 UNIT/ML SUBCUT SCH (09:52)
[2017-10-23] MEDS: PIPERACILLIN/TAZOBACTAM 3,375 MG in SODIUM CHLORIDE 0.9% 100 ML IV SCH ×2 (09:52→21:00)
[2017-10-23] MEDS: amLODIPine 5 MG TABLET PO SCH (09:52)
[2017-10-23] MEDS: CARBIDOPA/LEVODOPA 25-100 MG TABLET PO SCH ×3 (09:52→20:53)
[2017-10-23] MEDS: FUROSEMIDE 80 MG TABLET PO SCH ×2 (09:52→17:12)
[2017-10-23] MEDS: ZINC OXIDE PASTE 113 GM TUBE TOP SCH ×2 (10:08→20:54)
[2017-10-23] MEDS: MENTHOL/ZINC OXIDE OINT 71 GM JAR TOP SCH ×3 (10:08→20:54)
[2017-10-23] MEDS: RIVASTIGMINE 4.6 MG/24 HR PATCH TRANSDERM SCH (11:10)
[2017-10-23] MEDS: ENOXAPARIN 30 MG/0.3 ML SYRINGE SUBCUT SCH (12:39)
[2017-10-23] MEDS: ATORVASTATIN 40 MG TABLET PO SCH (20:53)
[2017-10-24] MEDS: VANCOMYCIN 50 MG/ML 60 ML/BOTTLE PO SCH ×5 (00:04→17:41)
[2017-10-24] MEDS: ALBUTEROL/IPRATROPIUM 3 ML NEB RESP TX SCH ×4 (00:43→20:28)
[2017-10-24] MEDS: INSULIN LISPRO 100 UNIT/ML SUBCUT SCH ×4 (08:34→20:54)
[2017-10-24] MEDS: INSULIN GLARGINE 100 UNIT/ML SUBCUT SCH (09:46)
[2017-10-24] MEDS: FUROSEMIDE 80 MG TABLET PO SCH ×2 (09:47→16:30)
[2017-10-24] MEDS: ISOSORBIDE DINITRATE 20 MG TABLET PO SCH ×3 (09:47→20:54)
[2017-10-24] MEDS: ASPIRIN EC 81 MG TABLET PO SCH (09:47)
[2017-10-24] MEDS: RIVASTIGMINE 4.6 MG/24 HR PATCH TRANSDERM SCH (09:47)
[2017-10-24] MEDS: predniSONE 20 MG TABLET PO SCH (09:47)
[2017-10-24] MEDS: hydrALAZINE 25 MG TABLET PO SCH ×3 (09:47→20:54)
[2017-10-24] MEDS: amLODIPine 5 MG TABLET PO SCH (09:48)
[2017-10-24] MEDS: CARBIDOPA/LEVODOPA 25-100 MG TABLET PO SCH ×3 (09:48→20:54)
[2017-10-24] MEDS: PIPERACILLIN/TAZOBACTAM 3,375 MG in SODIUM CHLORIDE 0.9% 100 ML IV SCH ×2 (09:48→21:00)
[2017-10-24] MEDS: ZINC OXIDE PASTE 113 GM TUBE TOP SCH ×2 (09:49→20:55)
[2017-10-24] MEDS: MENTHOL/ZINC OXIDE OINT 71 GM JAR TOP SCH ×3 (09:49→20:55)
[2017-10-24] MEDS: ENOXAPARIN 30 MG/0.3 ML SYRINGE SUBCUT SCH (12:20)
[2017-10-24] MEDS: ATORVASTATIN 40 MG TABLET PO SCH (20:55)
[2017-10-25] MEDS: VANCOMYCIN 50 MG/ML 60 ML/BOTTLE PO SCH ×3 (00:57→11:48)
[2017-10-25] MEDS: ALBUTEROL/IPRATROPIUM 3 ML NEB RESP TX SCH ×2 (01:55→07:05)
[2017-10-25 05:08] LABS: Basophils % 0.2 % (0.0-0.8); Eosinophils % 0.1 % (0.00-10.9); Hematocrit 27.9 VOL% (35.7-47.0); Immature Granulocytes % 4.3 %; Immature Granulocytes Absolute 0.54 #; Lymphocytes # 1.2 10*3/uL (1.4-4.0); Lymphocytes % 9.1 % (21.3-54.2); Mean Corpuscular HGB Conc 32.3 GM/DL (32-36); Mean Corpuscular Hemoglobin 30 PG (27-34); Mean Corpuscular Volume 92.7 FL (87-102); Mean Platelet Volume 10.7 FL (9.6-12.0); Monocytes # 0.8 10*3/uL (0.11-0.8); Monocytes % 6.1 % (1.7-12.7); NRBC # 0.02 10*3/uL; Neutrophils # 10.2 10*3/uL (1.4-7.4); Neutrophils % 80.2 % (38.7-73.9); Platelet Count 183 T/CUMM (130-400); Red Blood Count 3.01 MC/CUMM (3.8-5.5); Red Cell Distribution Width 14.6 % (9.3-17.3); White Blood Count 12.7 T/CUMM (4-12)
[2017-10-25 05:32] LABS: Albumin 2.9 G/DL (3.4-5.0); Calcium 8.6 MG/DL (8.5-10.1); Osmolality,Calculated 324.3 MOS/KG (273-304); Potassium 4.1 MMOL/L (3.5-5.1)
[2017-10-25 05:46] LABS: Band Neutrophils 1 % (0-10); Lymphocytes 10 % (20-55); Platelet Estimate Normal; Segmented Neutrophils 82 % (50-85); Total Cells Counted 100
[2017-10-25] MEDS: INSULIN LISPRO 100 UNIT/ML SUBCUT SCH ×2 (08:57→12:12)
[2017-10-25] MEDS: ISOSORBIDE DINITRATE 20 MG TABLET PO SCH (08:58)
[2017-10-25] MEDS: amLODIPine 5 MG TABLET PO SCH (08:58)
[2017-10-25] MEDS: FUROSEMIDE 80 MG TABLET PO SCH (08:58)
[2017-10-25] MEDS: INSULIN GLARGINE 100 UNIT/ML SUBCUT SCH (08:58)
[2017-10-25] MEDS: predniSONE 20 MG TABLET PO SCH (08:58)
[2017-10-25] MEDS: hydrALAZINE 25 MG TABLET PO SCH (08:59)
[2017-10-25] MEDS: CARBIDOPA/LEVODOPA 25-100 MG TABLET PO SCH (08:59)
[2017-10-25] MEDS: PIPERACILLIN/TAZOBACTAM 3,375 MG in SODIUM CHLORIDE 0.9% 100 ML IV SCH (08:59)
[2017-10-25] MEDS: ASPIRIN EC 81 MG TABLET PO SCH (08:59)
[2017-10-25] MEDS: ZINC OXIDE PASTE 113 GM TUBE TOP SCH (10:00)
[2017-10-25] MEDS: MENTHOL/ZINC OXIDE OINT 71 GM JAR TOP SCH (10:00)
[2017-10-25] MEDS: RIVASTIGMINE 4.6 MG/24 HR PATCH TRANSDERM SCH (10:28)
[2017-10-25 12:01] VITALS: BP 129/60
== END 2017-10-25 12:45 | DRG 291 ==
LOC: EDBD → EDUNIT# → N.ED 07:30 → N.EDINP 11:43 → SUATTDRO 11:43 → N.TELEN 12:39 → N.CC 14:52 → N.TELEN 10-20 15:22
PROVIDERS: ADMIT Internal Medicine; ATTEND Internal Medicine

== ENCOUNTER 2017-11-10 10:23 | Inpatient (IN) ==
[2017-11-10] MEDS ORDERED: PANTOPRAZOLE 40 MG VIAL IV STA (11:05)
[2017-11-10] MEDS ORDERED: SODIUM CHLORIDE 0.9% 1,000 ML IV STA ×2 (11:05→13:34)
[2017-11-10] MEDS ORDERED: ONDANSETRON 4 MG/2 ML VIAL IV STA (11:05)
[2017-11-10 11:39] LABS: Basophils % 0.1 % (0.0-0.8); Eosinophils % 0.4 % (0.00-10.9); Hematocrit 27.2 VOL% (35.7-47.0); Hemoglobin 8.6 GM/DL (12.0-16.0); Immature Granulocytes % 1.7 %; Immature Granulocytes Absolute 0.13 #; Lymphocytes % 12.8 % (21.3-54.2); Mean Corpuscular HGB Conc 31.6 GM/DL (32-36); Mean Corpuscular Hemoglobin 29 PG (27-34); Mean Corpuscular Volume 92.8 FL (87-102); Mean Platelet Volume 10.7 FL (9.6-12.0); Monocytes # 0.4 10*3/uL (0.11-0.8); Monocytes % 5.5 % (1.7-12.7); Neutrophils # 6.2 10*3/uL (1.4-7.4); Neutrophils % 79.5 % (38.7-73.9); Platelet Count 290 T/CUMM (130-400); Red Blood Count 2.93 MC/CUMM (3.8-5.5); Red Cell Distribution Width 14.8 % (9.3-17.3); White Blood Count 7.8 T/CUMM (4-12)
[2017-11-10 11:48] LABS: PT Patient Result 10.2 SECS; Partial Thromboplastin Time 27.5 SECS (0-40)
[2017-11-10 12:20] LABS: Alanine Aminotransferase < 9 U/L (13-56); Albumin 2.6 G/DL (3.4-5.0); Alkaline Phosphatase 88 U/L (45-117); Aspartate Amino Transferase 11 U/L (0-37); Bilirubin,Total < 0.39 MG/DL (0.2-1.0); Blood Urea Nitrogen 142 MG/DL (7-18); Calcium 8.6 MG/DL (8.5-10.1); Glucose 255 MG/DL (74-106); Osmolality,Calculated 329.7 MOS/KG (273-304); Potassium 5.2 MMOL/L (3.5-5.1); Sodium 138 MMOL/L (136-145); Total Protein 6.9 G/DL (6.4-8.3)
[2017-11-10] MEDS ORDERED: ACETAMINOPHEN 325 MG TABLET PO PRN (15:02)
[2017-11-10] MEDS ORDERED: DEXTROSE 50% 25 GM/50 ML VIAL IV PRN (15:02)
[2017-11-10] MEDS ORDERED: GLUCAGON 1 MG VIAL IM PRN (15:02)
[2017-11-10] MEDS ORDERED: ONDANSETRON 4 MG/2 ML VIAL IV PRN (15:02)
[2017-11-10] MEDS: INSULIN LISPRO 100 UNIT/ML SUBCUT SCH (17:19)
[2017-11-11] MEDS: INSULIN LISPRO 100 UNIT/ML SUBCUT SCH ×5 (00:08→21:28)
[2017-11-11 06:29] LABS: Basophils % 0.2 % (0.0-0.8); Eosinophils # 0.1 10*3/uL (0.0-0.87); Eosinophils % 1.9 % (0.00-10.9); Hematocrit 21.5 VOL% (35.7-47.0); Hemoglobin 6.9 GM/DL (12.0-16.0); Immature Granulocytes % 2.6 %; Immature Granulocytes Absolute 0.15 #; Lymphocytes # 1.2 10*3/uL (1.4-4.0); Mean Corpuscular HGB Conc 32.1 GM/DL (32-36); Mean Corpuscular Hemoglobin 29 PG (27-34); Mean Corpuscular Volume 91.5 FL (87-102); Mean Platelet Volume 10.8 FL (9.6-12.0); Monocytes # 0.4 10*3/uL (0.11-0.8); Monocytes % 6.5 % (1.7-12.7); NRBC # 0.02 10*3/uL; Neutrophils % 67.8 % (38.7-73.9); Platelet Count 238 T/CUMM (130-400); Red Blood Count 2.35 MC/CUMM (3.8-5.5); Red Cell Distribution Width 15.2 % (9.3-17.3); White Blood Count 5.9 T/CUMM (4-12)
[2017-11-11 06:53] LABS: Calcium 8.4 MG/DL (8.5-10.1); Potassium 4.8 MMOL/L (3.5-5.1)
[2017-11-11] MEDS ORDERED: SODIUM CHLORIDE 0.9% 1,000 ML IV PRN (09:45)
[2017-11-11] MEDS: PANTOPRAZOLE 40 MG TABLET PO SCH (09:58)
[2017-11-11] MEDS: FERROUS SULFATE 325 MG TABLET PO SCH ×2 (10:09→20:34)
[2017-11-11] MEDS: CARVEDILOL 3.125 MG TABLET PO SCH ×2 (10:09→20:33)
[2017-11-11] MEDS ORDERED: amLODIPine 5 MG TABLET PO SCH (11:00)
[2017-11-11] MEDS: CARBIDOPA/LEVODOPA 25-100 MG TABLET PO SCH ×3 (11:53→20:33)
[2017-11-11] MEDS: ALBUTEROL/IPRATROPIUM 3 ML NEB RESP TX SCH ×2 (13:18→19:24)
[2017-11-11] MEDS: ZINC OXIDE PASTE 113 GM TUBE TOP SCH ×2 (15:42→20:35)
[2017-11-11] MEDS: hydrALAZINE 25 MG TABLET PO SCH ×2 (16:52→20:33)
[2017-11-11] MEDS: ISOSORBIDE DINITRATE 20 MG TABLET PO SCH ×2 (16:53→20:34)
[2017-11-11] MEDS: FUROSEMIDE 80 MG TABLET PO SCH (16:53)
[2017-11-11 19:11] LABS: Hematocrit 28.9 VOL% (35.7-47.0); Hemoglobin 9.6 GM/DL (12.0-16.0)
[2017-11-11] MEDS: ATORVASTATIN 80 MG TABLET PO SCH (20:33)
[2017-11-11] MEDS: SERTRALINE 50 MG TABLET PO SCH (20:34)
[2017-11-11] MEDS: LACTOBACILLUS ACIDOPHILUS/BULGARICUS 1 PACKET PO SCH (20:34)
[2017-11-11] MEDS: INSULIN GLARGINE 100 UNIT/ML SUBCUT SCH (21:28)
[2017-11-12] MEDS: ALBUTEROL/IPRATROPIUM 3 ML NEB RESP TX SCH ×4 (01:27→19:06)
[2017-11-12 06:17] LABS: Basophils % 0.2 % (0.0-0.8); Eosinophils # 0.1 10*3/uL (0.0-0.87); Eosinophils % 2.3 % (0.00-10.9); Hematocrit 29.1 VOL% (35.7-47.0); Hemoglobin 9.5 GM/DL (12.0-16.0); Immature Granulocytes % 5.5 %; Immature Granulocytes Absolute 0.26 #; Lymphocytes # 1.3 10*3/uL (1.4-4.0); Lymphocytes % 26.5 % (21.3-54.2); Mean Corpuscular HGB Conc 32.6 GM/DL (32-36); Mean Corpuscular Hemoglobin 30 PG (27-34); Mean Corpuscular Volume 91.5 FL (87-102); Mean Platelet Volume 10.8 FL (9.6-12.0); Monocytes # 0.4 10*3/uL (0.11-0.8); Monocytes % 8.7 % (1.7-12.7); NRBC # 0.03 10*3/uL; Neutrophils # 2.7 10*3/uL (1.4-7.4); Neutrophils % 56.8 % (38.7-73.9); Platelet Count 191 T/CUMM (130-400); Red Blood Count 3.18 MC/CUMM (3.8-5.5); Red Cell Distribution Width 14.8 % (9.3-17.3); White Blood Count 4.7 T/CUMM (4-12)
[2017-11-12 06:33] LABS: Calcium 8.2 MG/DL (8.5-10.1); Potassium 4.6 MMOL/L (3.5-5.1)
[2017-11-12 07:11] LABS: Band Neutrophils 1 % (0-10); Eosinophils 2 % (0-10); Lymphocytes 28 % (20-55); Metamyelocytes 1 %; Myelocytes 1 %; Nucleated Red Blood Cells 2 (0-5); Segmented Neutrophils 57 % (50-85); Total Cells Counted 100
[2017-11-12 07:22] LABS: Burr Cells Slight
[2017-11-12 07:23] LABS: Microcytosis 1+; Polychromasia Slight
[2017-11-12 07:24] LABS: Platelet Estimate Adequate
[2017-11-12 07:25] LABS: Atypical Lymphocytes Few
[2017-11-12] MEDS: LACTOBACILLUS ACIDOPHILUS/BULGARICUS 1 PACKET PO SCH ×2 (09:22→21:21)
[2017-11-12] MEDS: CARVEDILOL 3.125 MG TABLET PO SCH ×2 (09:38→21:22)
[2017-11-12] MEDS: PANTOPRAZOLE 40 MG TABLET PO SCH (09:38)
[2017-11-12] MEDS: CARBIDOPA/LEVODOPA 25-100 MG TABLET PO SCH ×3 (09:38→21:21)
[2017-11-12] MEDS: ISOSORBIDE DINITRATE 20 MG TABLET PO SCH ×3 (09:38→21:21)
[2017-11-12] MEDS: POTASSIUM CHLORIDE 20 MEQ TABLET PO SCH (09:38)
[2017-11-12] MEDS: hydrALAZINE 25 MG TABLET PO SCH ×3 (09:38→21:21)
[2017-11-12] MEDS: FUROSEMIDE 80 MG TABLET PO SCH ×2 (09:38→18:14)
[2017-11-12] MEDS: FERROUS SULFATE 325 MG TABLET PO SCH ×2 (09:38→21:21)
[2017-11-12] MEDS: INSULIN LISPRO 100 UNIT/ML SUBCUT SCH ×4 (09:45→21:20)
[2017-11-12] MEDS: RIVASTIGMINE 4.6 MG/24 HR PATCH TRANSDERM SCH (10:52)
[2017-11-12] MEDS: ZINC OXIDE PASTE 113 GM TUBE TOP SCH ×2 (14:17→21:22)
[2017-11-12] MEDS: SERTRALINE 50 MG TABLET PO SCH (21:00)
[2017-11-12] MEDS: INSULIN GLARGINE 100 UNIT/ML SUBCUT SCH (21:20)
[2017-11-12] MEDS: ATORVASTATIN 80 MG TABLET PO SCH (21:21)
[2017-11-13] MEDS: ALBUTEROL/IPRATROPIUM 3 ML NEB RESP TX SCH ×2 (01:23→06:47)
[2017-11-13 06:41] LABS: Basophils % 0.2 % (0.0-0.8); Eosinophils # 0.2 10*3/uL (0.0-0.87); Hematocrit 29.2 VOL% (35.7-47.0); Hemoglobin 9.5 GM/DL (12.0-16.0); Immature Granulocytes % 6.9 %; Immature Granulocytes Absolute 0.35 #; Lymphocytes # 1.5 10*3/uL (1.4-4.0); Lymphocytes % 29.7 % (21.3-54.2); Mean Corpuscular HGB Conc 32.5 GM/DL (32-36); Mean Corpuscular Hemoglobin 30 PG (27-34); Mean Corpuscular Volume 92.1 FL (87-102); Mean Platelet Volume 10.5 FL (9.6-12.0); Monocytes # 0.4 10*3/uL (0.11-0.8); Monocytes % 8.3 % (1.7-12.7); NRBC # 0.05 10*3/uL; Neutrophils # 2.6 10*3/uL (1.4-7.4); Neutrophils % 51.9 % (38.7-73.9); Platelet Count 201 T/CUMM (130-400); Red Blood Count 3.17 MC/CUMM (3.8-5.5); Red Cell Distribution Width 15.3 % (9.3-17.3); White Blood Count 5.1 T/CUMM (4-12)
[2017-11-13 07:16] LABS: Atypical Lymphocytes Few; Band Neutrophils 1 % (0-10); Eosinophils 3 % (0-10); Lymphocytes 29 % (20-55); Metamyelocytes 3 %; Microcytosis 1+; Nucleated Red Blood Cells 2 (0-5); Segmented Neutrophils 55 % (50-85); Total Cells Counted 100
[2017-11-13 07:17] LABS: Hypochromasia 1+; Polychromasia Slight
[2017-11-13 07:18] LABS: Platelet Estimate Normal
[2017-11-13] MEDS: ISOSORBIDE DINITRATE 20 MG TABLET PO SCH (08:47)
[2017-11-13] MEDS: PANTOPRAZOLE 40 MG TABLET PO SCH (08:47)
[2017-11-13] MEDS: CARVEDILOL 3.125 MG TABLET PO SCH (08:47)
[2017-11-13] MEDS: LACTOBACILLUS ACIDOPHILUS/BULGARICUS 1 PACKET PO SCH (08:47)
[2017-11-13] MEDS: hydrALAZINE 25 MG TABLET PO SCH (08:48)
[2017-11-13] MEDS: FUROSEMIDE 80 MG TABLET PO SCH (08:48)
[2017-11-13] MEDS: CARBIDOPA/LEVODOPA 25-100 MG TABLET PO SCH (08:48)
[2017-11-13] MEDS: FERROUS SULFATE 325 MG TABLET PO SCH (08:48)
[2017-11-13] MEDS: INSULIN LISPRO 100 UNIT/ML SUBCUT SCH ×2 (08:49→12:11)
[2017-11-13] MEDS: RIVASTIGMINE 4.6 MG/24 HR PATCH TRANSDERM SCH (08:50)
[2017-11-13] MEDS: ZINC OXIDE PASTE 113 GM TUBE TOP SCH (08:50)
[2017-11-13] MEDS: POTASSIUM CHLORIDE 20 MEQ TABLET PO SCH (08:50)
[2017-11-13 12:10] VITALS: BP 134/60
[2017-11-13] MEDS ORDERED: INSULIN GLARGINE 100 UNIT/ML SUBCUT SCH (21:00)
== END 2017-11-13 12:25 | DRG 378 ==
LOC: EDUNIT# → EDBD → N.ED 10:23 → N.EDINP 14:08 → SUATTDRO 14:08 → N.2E 15:13
PROVIDERS: ATTEND Internal Medicine

== ENCOUNTER 2017-11-20 21:05 | Observation (INO) ==
[2017-11-20] MEDS ORDERED: FUROSEMIDE 100 MG/10 ML VIAL IV STA (21:39)
[2017-11-20] MEDS ORDERED: ALBUTEROL/IPRATROPIUM 3 ML NEB RESP TX STA (21:39)
[2017-11-20 21:57] LABS: ABG Base Excess -11.1 MMOL/L (-2.5-2.5); ABG HCO3 15.6 MMOL/L (20-26); ABG Oxygen Saturation 99.4 % (95-100); ABG PCO2 30.5 MM HG (35-48); ABG PH 7.288 (7.35-7.45); ABG TCO2 13.7 MMOL/L (23-27)
[2017-11-20] MEDS ORDERED: SODIUM BICARBONATE 50 MEQ/50 ML VIAL IV STA (22:05)
[2017-11-20] MEDS ORDERED: SODIUM BICARBONATE 50 MEQ/50 ML SYRINGE IV STA (22:11)
[2017-11-20 23:21] LABS: Basophils % 0.1 % (0.0-0.8); Eosinophils % 0.3 % (0.00-10.9); Hematocrit 28.6 VOL% (35.7-47.0); Immature Granulocytes % 1.9 %; Immature Granulocytes Absolute 0.17 #; Lymphocytes # 1.2 10*3/uL (1.4-4.0); Lymphocytes % 13.4 % (21.3-54.2); Mean Corpuscular HGB Conc 31.5 GM/DL (32-36); Mean Corpuscular Hemoglobin 30 PG (27-34); Mean Corpuscular Volume 95.7 FL (87-102); Mean Platelet Volume 11.1 FL (9.6-12.0); Monocytes # 0.4 10*3/uL (0.11-0.8); NRBC # 0.04 10*3/uL; Neutrophils # 7.3 10*3/uL (1.4-7.4); Neutrophils % 80.3 % (38.7-73.9); Platelet Count 151 T/CUMM (130-400); Red Blood Count 2.99 MC/CUMM (3.8-5.5); Red Cell Distribution Width 14.7 % (9.3-17.3)
[2017-11-20 23:28] LABS: INR 0.9; PT Patient Result 9.8 SECS
[2017-11-20 23:42] LABS: Alanine Aminotransferase < 9 U/L (13-56); Alkaline Phosphatase 114 U/L (45-117); Aspartate Amino Transferase 9 U/L (0-37); Bilirubin,Total < 0.39 MG/DL (0.2-1.0); Blood Urea Nitrogen 141 MG/DL (7-18); Calcium 8.3 MG/DL (8.5-10.1); Glucose 353 MG/DL (74-106); Osmolality,Calculated 325.4 MOS/KG (273-304); Sodium 133 MMOL/L (136-145); Total Protein 6.2 G/DL (6.4-8.3)
[2017-11-21] MEDS ORDERED: CALCIUM CHLORIDE 1,000 MG/10 ML SYRINGE IV STA (00:07)
[2017-11-21] MEDS ORDERED: MAGNESIUM SULF RIDER 2 GM in PREMIX 1 EACH IV STA (00:07)
[2017-11-21] MEDS ORDERED: GLUCAGON 1 MG VIAL IM PRN (01:38)
[2017-11-21] MEDS ORDERED: DEXTROSE 50% 25 GM/50 ML VIAL IV PRN (01:38)
[2017-11-21 02:34] LABS: Amorphous Crystals,Urine Occasional /HPF (Few); Apearance,Urine Slightly Hazy (Clear); Bacteria,Urine Moderate /HPF (Few); Bilirubin,Urine Negative (Negative); Blood, Urine Small mg/dL (Negative); Glucose,Urine (UA) >=500 mg/dL (Negative); Ketones,Urine Negative (Negative); Mucus,Urine Occasional /LPF (Occasional); Nitrite,Urine Positive (Negative); Protein,Urine Negative; Squamous Epithelial Cell,Urine Occasional /HPF (0-10); Urine Color Yellow (Yellow); Urine Specific Gravity 1.003 (1.001-1.035); Urine Urobilinogen < 2.0 EU/DL (0.2-1.0); WBC,Urine 12 /HPF (0-6)
[2017-11-21] MEDS: SODIUM CHLORIDE 0.9% 1,000 ML IV SCH ×3 (02:56→23:51)
[2017-11-21] MEDS: ALBUTEROL/IPRATROPIUM 3 ML NEB RESP TX SCH ×3 (06:52→19:39)
[2017-11-21 07:28] LABS: Basophils % 0.1 % (0.0-0.8); Eosinophils % 0.2 % (0.00-10.9); Hematocrit 25.9 VOL% (35.7-47.0); Hemoglobin 8.1 GM/DL (12.0-16.0); Immature Granulocytes % 1.7 %; Immature Granulocytes Absolute 0.14 #; Lymphocytes # 1.2 10*3/uL (1.4-4.0); Lymphocytes % 14.5 % (21.3-54.2); Mean Corpuscular HGB Conc 31.3 GM/DL (32-36); Mean Corpuscular Hemoglobin 29 PG (27-34); Mean Corpuscular Volume 93.8 FL (87-102); Mean Platelet Volume 11.1 FL (9.6-12.0); Monocytes # 0.4 10*3/uL (0.11-0.8); NRBC # 0.03 10*3/uL; Neutrophils # 6.4 10*3/uL (1.4-7.4); Neutrophils % 78.5 % (38.7-73.9); Platelet Count 214 T/CUMM (130-400); Red Blood Count 2.76 MC/CUMM (3.8-5.5); Red Cell Distribution Width 14.7 % (9.3-17.3); White Blood Count 8.2 T/CUMM (4-12)
[2017-11-21 07:54] LABS: Calcium 9.1 MG/DL (8.5-10.1); Potassium 5.2 MMOL/L (3.5-5.1)
[2017-11-21] MEDS: INSULIN REGULAR 100 UNIT/ML SUBCUT SCH ×4 (08:29→21:25)
[2017-11-21] MEDS: FUROSEMIDE 80 MG TABLET PO SCH ×2 (08:30→08:40)
[2017-11-21] MEDS: MULTIVITAMIN (CENTRUM) TABLET PO SCH (08:30)
[2017-11-21] MEDS: FERROUS SULFATE 325 MG TABLET PO SCH ×2 (08:31→17:03)
[2017-11-21] MEDS: PANTOPRAZOLE 40 MG TABLET PO SCH (08:31)
[2017-11-21] MEDS: LACTOBACILLUS ACIDOPHILUS/BULGARICUS 1 PACKET PO SCH ×2 (08:32→21:21)
[2017-11-21] MEDS: RIVASTIGMINE 4.6 MG/24 HR PATCH TRANSDERM SCH (08:34)
[2017-11-21] MEDS: hydrALAZINE 25 MG TABLET PO SCH ×3 (08:39→21:24)
[2017-11-21] MEDS ORDERED: ISOSORBIDE DINITRATE 20 MG TABLET PO SCH (09:00)
[2017-11-21] MEDS: ISOSORBIDE MONONITRATE 30 MG TABLET PO SCH (10:56)
[2017-11-21] MEDS: MEROPENEM 500 MG in SYRINGE 1 EACH IV SCH ×2 (14:15→23:48)
[2017-11-21] MEDS: INSULIN LISPRO 100 UNIT/ML SUBCUT SCH (14:15)
[2017-11-21] MEDS: ZINC OXIDE PASTE 113 GM TUBE TOP SCH ×2 (14:32→21:25)
[2017-11-21] MEDS ORDERED: SERTRALINE 50 MG TABLET PO SCH (21:00)
[2017-11-21] MEDS ORDERED: INSULIN GLARGINE 100 UNIT/ML SUBCUT SCH (21:00)
[2017-11-22] MEDS: ALBUTEROL/IPRATROPIUM 3 ML NEB RESP TX SCH ×3 (00:45→13:31)
[2017-11-22 06:00] LABS: Basophils % 0.3 % (0.0-0.8); Eosinophils % 0.5 % (0.00-10.9); Hematocrit 23.8 VOL% (35.7-47.0); Hemoglobin 7.5 GM/DL (12.0-16.0); Immature Granulocytes % 2.1 %; Immature Granulocytes Absolute 0.16 #; Lymphocytes % 26.4 % (21.3-54.2); Mean Corpuscular HGB Conc 31.5 GM/DL (32-36); Mean Corpuscular Hemoglobin 30 PG (27-34); Mean Corpuscular Volume 94.1 FL (87-102); Mean Platelet Volume 11.2 FL (9.6-12.0); Monocytes # 0.5 10*3/uL (0.11-0.8); Monocytes % 7.1 % (1.7-12.7); NRBC # 0.04 10*3/uL; Neutrophils # 4.9 10*3/uL (1.4-7.4); Neutrophils % 63.6 % (38.7-73.9); Platelet Count 208 T/CUMM (130-400); Red Blood Count 2.53 MC/CUMM (3.8-5.5); Red Cell Distribution Width 14.8 % (9.3-17.3); White Blood Count 7.6 T/CUMM (4-12)
[2017-11-22 06:29] LABS: Calcium 8.7 MG/DL (8.5-10.1); Potassium 4.9 MMOL/L (3.5-5.1)
[2017-11-22] MEDS: PANTOPRAZOLE 40 MG TABLET PO SCH (09:19)
[2017-11-22] MEDS: hydrALAZINE 25 MG TABLET PO SCH (09:19)
[2017-11-22] MEDS: LACTOBACILLUS ACIDOPHILUS/BULGARICUS 1 PACKET PO SCH (09:19)
[2017-11-22] MEDS: ISOSORBIDE MONONITRATE 30 MG TABLET PO SCH (09:19)
[2017-11-22] MEDS: FERROUS SULFATE 325 MG TABLET PO SCH (09:19)
[2017-11-22] MEDS: MULTIVITAMIN (CENTRUM) TABLET PO SCH (09:19)
[2017-11-22] MEDS: RIVASTIGMINE 4.6 MG/24 HR PATCH TRANSDERM SCH (09:20)
[2017-11-22] MEDS: ZINC OXIDE PASTE 113 GM TUBE TOP SCH (09:20)
[2017-11-22] MEDS: INSULIN REGULAR 100 UNIT/ML SUBCUT SCH ×2 (09:20→12:45)
[2017-11-22 10:33] LABS: % Iron Saturation 10.5 % (18-50)
[2017-11-22 11:54] VITALS: BP 127/61
[2017-11-22] MEDS ORDERED: SODIUM CHLORIDE 0.9% 1,000 ML IV PRN (12:42)
[2017-11-22] MEDS: MEROPENEM 500 MG in SYRINGE 1 EACH IV SCH (12:45)
[2017-11-22] MEDS: INSULIN LISPRO 100 UNIT/ML SUBCUT SCH (12:45)
[2017-11-23] MEDS ORDERED: FUROSEMIDE 80 MG TABLET PO SCH (09:00)
== END 2017-11-22 16:45 ==
LOC: EDUNIT# → EDBD → N.EDINP 21:05 → N.ED 21:05 → SUATTDRO 11-21 01:38 → N.TELES 11-21 02:43
PROVIDERS: ADMIT Internal Medicine